=== PATIENT | male | born 1975 | race Caucasian/White ===

== ENCOUNTER 2019-08-01 07:23 | Inpatient (IN) | payer OTHER ==
[~2019-08-01] VITALS: Ht 188 cm; Wt 138.3 kg
[2019-08-01] MEDS ORDERED: PRED20 PO (08:08)
[2019-08-01] MEDS ORDERED: AMLO10 PO (08:08)
[2019-08-01] MEDS ORDERED: METF500 PO (08:08)
[2019-08-01] MEDS ORDERED: POTA10T PO (08:09)
[2019-08-01 08:25] LABS: BASOPHILS ABSOLUTE AUTO 0.03 K/mm3 (0.00-0.23); BASOPHILS PERCENT AUTO 0 % (0-2); EOSINOPHILS ABSOLUTE AUTO 0.08 K/mm3 (0.00-0.68); EOSINOPHILS PERCENT AUTO 1 % (0-6); Hematocrit 43.7 % (37.0-53.0); Hemoglobin 12.4 g/dL (13.5-17.5); IMMATURE GRAN ABSOLUTE AUTO 0.02 K/mm3 (0.00-0.10); IMMATURE GRAN PERCENT AUTO 0 % (0-1); LYMPHOCYTES ABSOLUTE AUTO 1.23 K/mm3 (0.84-5.20); LYMPHOCYTES PERCENT AUTO 16 % (21-46); MONOCYTES ABSOLUTE AUTO 0.57 K/mm3 (0.16-1.47); MONOCYTES PERCENT AUTO 7 % (4-13); Mean Corpuscular HGB 28.9 pg (26.0-34.0); Mean Corpuscular HGB Conc 28.4 g/dL (31.5-36.5); Mean Corpuscular Volume 102 fL (80-100); NEUTROPHILS ABSOLUTE AUTO 5.74 K/mm3 (1.96-9.15); NEUTROPHILS PERCENT AUTO 75 % (41-73); Platelet Count 261 K/mm3 (150-400); RDW Coefficient Variation 17.1 % (11.7-14.2); RDW Standard Deviation 64.7 fL (35.1-46.3); Red Blood Cell Count 4.29 M/mm3 (4.30-5.90); White Blood Cell Count 7.67 K/mm3 (4.00-11.30)
[2019-08-01] MEDS ORDERED: ALBU3IS INH (08:34)
[2019-08-01] MEDS ORDERED: ALBU90OI (08:35)
[2019-08-01 08:44] LABS: PO2 Arterial 53.8 mmHg (80-100)
[2019-08-01 08:45] LABS: pH Blood Arterial 7.28 (7.35-7.45)
[2019-08-01 09:32] LABS: Alanine Aminotransfer (ALT/SGP 45 U/L (12-78); Albumin, Blood 3.4 g/dL (3.4-5.0); Alk Phos 134 U/L (50-136); Anion Gap -2 mmol/L (6-16); Aspartate Aminotrans (AST/SGOT 22 U/L (12-37); Bilirubin, Total 0.4 mg/dL (0.1-1.0); Blood Urea Nitrogen 14 mg/dL (8-24); Bun/Creatinine Ratio 15.3 (12.0-20.0); CO2, Blood 36 mmol/L (21-32); Calcium, Blood 8.2 mg/dL (8.5-10.1); Chloride, Blood 107 mmol/L (98-108); Creatinine, Blood 0.92 mg/dL (0.60-1.20); Globulin, Blood 3.3 g/dL (2.2-4.0); Glomerular Filtration Rate >60 (60-); Glucose, Blood 109 mg/dL (70-99); Sodium, Blood 141 mmol/L (136-145); Total Protein, Blood 6.7 g/dL (6.4-8.2)
[2019-08-01 09:34] LABS: Troponin I 0.103 ng/mL (0.000-0.040)
--- NOTE | 2019-08-01 12:00 | NUR ---
ADMISSION TO PCU NOTE: ASSUMED CARE AT APPROXIMATELY 1030. REPORT GIVEN BY ER TO PRACHI. DIAGNOSIS LLE CELLULITIS & RESPIRATORY ACIDOSIS. PATIENT TRANSFERRED VIA GURNEY. FOUR PERSON SLIDE SHEET TRANSFER TO BED. PATIENT AO X4. DROWSY, BUT AROUSABLE. PULSE 97, RESPIRATIONS 15, BP 145/65 SPO2 97 ON BIPAP SETTINGS 18/10 40%. RIGHT HAND IV ACCIDENTALY PULLED BY PATIENT 10 MINUTES POST ADMISSION TO UNIT. 20G IN PLACE TO LEFT FOREARM, NO OBSERVABLE IV RELATED COMPLICATIONS, NEW WINDOW DRSG APPLIED. LLE REDNESS OUTLINED. ULCER W/SLOUGH OBERVED TO LLE LATERAL KNIGHT. CONT OF BLADDER USING URINAL. PATIENT R BKA ND OLDER STUMP C/D/I. PATIENT USES URINAL APPROPRIATELY.
--- NOTE | 2019-08-01 15:47 | NUR ---
PATIENT CONTINUES STABLE AT THIS TIME. VSS SEE EMR. TOLERATING BIPAP AT CURRENT SETTINGS. RT IN TO SEE PATIENT. USING URINAL APPROPRIATELY. IV ABX INFUSED PER EMAR . PICTURES TAKEN AND DOCUMENTED OF ULCER. CALL LIGHT WITHIN REACH. NO ACUTE CHANGES WILL CONTINUE TO MONITOR.
[2019-08-02 04:10] LABS: BASOPHILS ABSOLUTE AUTO 0.03 K/mm3 (0.00-0.23); BASOPHILS PERCENT AUTO 0 % (0-2); EOSINOPHILS ABSOLUTE AUTO 0.09 K/mm3 (0.00-0.68); EOSINOPHILS PERCENT AUTO 1 % (0-6); Hematocrit 44.1 % (37.0-53.0); Hemoglobin 12.7 g/dL (13.5-17.5); IMMATURE GRAN ABSOLUTE AUTO 0.02 K/mm3 (0.00-0.10); IMMATURE GRAN PERCENT AUTO 0 % (0-1); LYMPHOCYTES ABSOLUTE AUTO 1.03 K/mm3 (0.84-5.20); LYMPHOCYTES PERCENT AUTO 12 % (21-46); MONOCYTES PERCENT AUTO 6 % (4-13); Mean Corpuscular HGB 29.4 pg (26.0-34.0); Mean Corpuscular HGB Conc 28.8 g/dL (31.5-36.5); Mean Corpuscular Volume 102 fL (80-100); Mean Platelet Volume 9.7 fL (9.1-12.4); NEUTROPHILS ABSOLUTE AUTO 6.68 K/mm3 (1.96-9.15); NEUTROPHILS PERCENT AUTO 80 % (41-73); NRBC ABSOLUTE 0.02 K/mm3 (0.00-0.02); NRBC Auto 0.2 /100 WBC (0.0-0.2); Platelet Count 248 K/mm3 (150-400); RDW Coefficient Variation 16.8 % (11.7-14.2); RDW Standard Deviation 63.1 fL (35.1-46.3); Red Blood Cell Count 4.32 M/mm3 (4.30-5.90); White Blood Cell Count 8.35 K/mm3 (4.00-11.30)
[2019-08-02 04:28] LABS: Alanine Aminotransfer (ALT/SGP 40 U/L (12-78); Albumin, Blood 3.2 g/dL (3.4-5.0); Albumin/Globulin Ratio 0.9 (0.8-1.8); Alk Phos 114 U/L (50-136); Anion Gap 4 mmol/L (6-16); Aspartate Aminotrans (AST/SGOT 21 U/L (12-37); Bilirubin, Total 0.5 mg/dL (0.1-1.0); Blood Urea Nitrogen 10 mg/dL (8-24); Bun/Creatinine Ratio 11.5 (12.0-20.0); CO2, Blood 34 mmol/L (21-32); Calcium, Blood 8.1 mg/dL (8.5-10.1); Chloride, Blood 105 mmol/L (98-108); Creatinine, Blood 0.87 mg/dL (0.60-1.20); Globulin, Blood 3.4 g/dL (2.2-4.0); Glomerular Filtration Rate >60 (60-); Glucose, Blood 94 mg/dL (70-99); Potassium, Blood 4.2 mmol/L (3.5-5.5); Sodium, Blood 143 mmol/L (136-145); Total Protein, Blood 6.6 g/dL (6.4-8.2)
--- NOTE | 2019-08-02 05:19 | NUR ---
SHIFT SUMMARY: PATIENTS O2 SATURATION DROPS QUICKLY WHEN SLEEPING AND ONLY USING THE NC, PATIENT USED THE BIPAP THE MAJORITY OF THE NIGHT. AT APPROX 0130 PATIENT C/O 10/10 HEADACHE PAIN, BP HIGH. MD NOTIFIED, ORDERS RECIEVED, PAIN AND PRN HTN MEDICATION GIVEN PER MD ORDERS. PATIENT FELL ASLEEP SHORTY AFTER AND HAS NOT C/O PAIN THE REST OF THE SHIFT. PATIENTS SBP STILL APPROX 170'S, VERY HARD TO CONTROL THIS SHIFT, NO OTHER ISSUES NOTED. CALL LIGHT WITHIN REACH, BED LOW AND LOCKED, MONITORING CLOSELY.
[2019-08-02 10:09] LABS: Vancomycin, Trough 18.1 ug/mL (5.0-10.0)
[2019-08-02 15:36] LABS: PCO2 Arterial 95 mmHg (35-45); PO2 Arterial 138 mmHg (80-100); pH Blood Arterial 7.21 (7.35-7.45)
--- NOTE | 2019-08-02 16:04 | NUR ---
DECLINE IN PATIENT STATUS PATIENTS CONTINUOUS TO HAVE PERIODS OF HYPOXIA ON THE BIPAP WITH SATURATIONS RANGING LOW 76% SPO2 AND 60% WHEN PATIENT TAKES BIPAP OFF DUE TO ANXIETY OF SOB. PATIENT SAT AT 90 DEGREE ANGLE, ABG OBTAINED AND MD MIMS NOTIFIED. PATIENT CONTINUES TO BE DROWSY AND UNABLE TO STAY AWAKE ON BIPAP. VOLUMES INCREASED PER RT AND MD MIMS. PATIENT MADE ICU STATUS AND CONSULT FOR CONTRACT CONSULTANT PLACED AND NOTIFIED. THIS RN AT BEDSIDE AT DURING THIS PERIOD. MD MIMS AT BEDSIDE.
--- NOTE | 2019-08-02 16:52 | NUR ---
PT TRANSPORTED TO ICU. BEDSIDE REPORT GIVEN TO EILEEN BELLE.
[2019-08-02 18:12] LABS: Source, Urine Catheter
--- NOTE | 2019-08-02 18:12 | NUR ---
ASSUMED CARE/UPDATE/SHIFT SUMMARY PT COMES OVER TO ICU AT 1630 ON THE BIPAP, IN RESPIRATORY ACCIDOSIS/FAILURE. HE ELECTED TO BECOME INTUBATED, HE KNEW WHO HE WAS AND THE SITUATION. DR. DO TO THE ROOM SHORTLY AFTER AND WE BEGAN TO INTUBATE THE PATIENT. 1650 - 4MG VERSED AND 80MG PROPOFOL GIVEN (PROPOFOL PUSHED BY DR. DO) 1657 - 60MG OF PROPOFOL GIVEN BY DR. DO. 1658 - 20MG ETOMIDATE INTUBATION WAS PROVING DIFFICULT. IT WAS DECIDED TO PARALYZE, SO AT 1706 - 70MG OF ROCURONIUM 1708 - 4MG VERSED GIVEN, AND DR DO WAS SUCCESSFUL AT 1715. 8.0 ETT, 25 @ TEETH. PT STARTED ON A PROPOFOL GTTP 35MCG/KG/MIN, CURRENTLY NOW AT 45MCG/KIG/MIN. PRESSURES HAVE BEEN ADEQUATE THROUGHOUT. HIS INITIAL XRAY WAS TERRIBLE (SEEMS LIKELY HE ASPIRATED DURING INTUBATION). HE IS COARSE THROUGHOUT AND NOT MOVING MUCH AIR. SATS HAVE BEEN AN ISSUE SINCE HES BEEN INTUBATED MID 80'S ON AC/VC, PEEP IS UP TO 10, AC/PC 14, RATE OF 16, 100% FIO2. BUT CURRENTLY PT IS FINALLY SAT'ING 93-94% DOING SLIGHTLY BETTER. DR DO WILL ORDER ANOTHER XRAY SOON TO SEE IF THERE HAS BEEN IMPROVEMENT BEFORE MAKING ANY CHANGES. ONE THING THAT HAS BEEN HAPPENING HAS BEEN SOME TWITCHING/FASICULATING OR JERKY MOVMENTS. HE HAD GOOSEBUMPS WITH A TEMP OF 97.8, I THREW WARM BLANKETS ON HIM AND BROUGHT THIS TO DR. DO'S ATTENTION - WHICH HE SAID THIS CAN HAPPEN WHEN PARALYTICS WEAR OFF. GAYTAN AND OG TUBE INSERTED WITH NO DIFFICULTY. PT SEEMS TO HAVE A RASS OF -3, AND SEEMS TO BE TOLERATING THE VENTILATOR WELL CURRENTLY. BED LOW AND LOCKED. PCU NURSE THAT HAD THE PATIENT PRIOR TO THE TRANSFER TOLD ME SHE WOULD CALL FAMILY.
[2019-08-02 18:17] LABS: Appearance, Urine Hazy (Clear); Bilirubin, Urine Neg (Neg); Blood, Urine 1+ (Neg); Color, Urine Yellow (P-Yellow); Glucose Qualitative, Urine Neg (Neg); Ketones, Urine Neg (Neg); Leukocyte Esterase, Urine 1+ (Neg); Nitrite, Urine Neg (Neg); Protein, Urine 2+ (Neg); Specific Gravity, Urine 1.025 (1.003-1.022); Urobilinogen, Urine NORM (Normal)
[2019-08-02 18:29] LABS: Bacteria Few /hpf; Squamous Epithelial Cells Few /hpf (Few)
[2019-08-02 18:30] LABS: Amorphous Light (0-Heavy); Mucus Light (0-Heavy)
--- NOTE | 2019-08-02 19:43 | NUR ---
ASSESSMENT/ASSUMED CARE PT INTUBATED AND ON [facility] VENT. SEDATED WITH PROPOFOL. PT MOVES HEAD BACK AND FORTH WITH ORAL CARE AND TOUCH STIMULI. NOT FOLLOWING INSTRUCTIONS. BILAT WRIST RESTRAINTS ON. LUNGS CLEAR BUT DECREASED THROUGHOUT. VENT SETTINGS AC 16 PC 14 PEEP 10 FIO2 80%. SUCTIONING FROTHY WHITE SECRECTIONS VIA ET TUBE. LOTS OF ORAL SECRECTIONS. HEART RATE REGULAR BUT DISTANT. BP STABLE. BT+ OG TO LIS DRAINING DIGESTED FOOD. ABD OBESE, ROUND AND FIRM. GAYTAN CATH PATENT DRAINING YELLOW URINE. CXR DONE AND REVIEWED BY DR JULIAN. IV 20 G TO RIGHT UPPER ARM SALINE LOCKED. SITE CLEAR. IV 20G TO LEFT FOREARM WITH PROPOFOL AT 45 MCQ/KG/MIN. RIGHT BKA NOTED. LEFT KNIGHT WITH DRSG CD&I. NO REDNESS TO LEFT KNIGHT NOTED. LASIX TO BE GIVEN.
--- NOTE | 2019-08-02 20:54 | NUR ---
O2 INCREASED TO 90% DUE TO SPO2 AT 89-90%. OG TUBE CLAMPED AFTER GIVING NORVASC AND PEPSID.
--- NOTE | 2019-08-03 03:00 | NUR ---
BED BATH DONE, SPO2 DOWN TO 77% WHEN TURNED FOR LINEN CHANGE. FIO2 INCREASED TO 100%. SUCTIONED LARGE AMT FROTHY WHITE SECRECTIONS VIA ET TUBE. RT NOTIFIED PT UP TO 88-90%. INCREASD PEEP TO 12.
--- NOTE | 2019-08-03 03:22 | NUR ---
PT CONT TO HAVE SPO2 AT 88-89% WITH VENT SETTINGS AC 16 PC 14 PEEP 12 FIO2 100%. RT CAME AND CHANGED VENT SETTINGS TO AC 24 PC 18 PEEP 10 FIO2 100%. SPO2 UP TO 91% AND HEART RATE CAME DOWN TO 98. PT RESTING QUIETLY. TV IN THE 600'S.
[2019-08-03 03:36] LABS: BASOPHILS ABSOLUTE AUTO 0.01 K/mm3 (0.00-0.23); BASOPHILS PERCENT AUTO 0 % (0-2); EOSINOPHILS PERCENT AUTO 0 % (0-6); Hematocrit 41.7 % (37.0-53.0); Hemoglobin 12.5 g/dL (13.5-17.5); IMMATURE GRAN ABSOLUTE AUTO 0.03 K/mm3 (0.00-0.10); IMMATURE GRAN PERCENT AUTO 0 % (0-1); LYMPHOCYTES ABSOLUTE AUTO 0.43 K/mm3 (0.84-5.20); LYMPHOCYTES PERCENT AUTO 5 % (21-46); MONOCYTES ABSOLUTE AUTO 0.25 K/mm3 (0.16-1.47); MONOCYTES PERCENT AUTO 3 % (4-13); Mean Corpuscular HGB 29.3 pg (26.0-34.0); Mean Platelet Volume 9.4 fL (9.1-12.4); NEUTROPHILS ABSOLUTE AUTO 8.07 K/mm3 (1.96-9.15); NEUTROPHILS PERCENT AUTO 92 % (41-73); Platelet Count 267 K/mm3 (150-400); RDW Coefficient Variation 16.4 % (11.7-14.2); Red Blood Cell Count 4.27 M/mm3 (4.30-5.90); White Blood Cell Count 8.79 K/mm3 (4.00-11.30)
[2019-08-03 03:37] LABS: Mean Corpuscular Volume 98 fL (80-100)
[2019-08-03 03:54] LABS: Anion Gap 5 mmol/L (6-16); Blood Urea Nitrogen 15 mg/dL (8-24); Bun/Creatinine Ratio 13.9 (12.0-20.0); CO2, Blood 33 mmol/L (21-32); Calcium, Blood 8.4 mg/dL (8.5-10.1); Chloride, Blood 102 mmol/L (98-108); Creatinine, Blood 1.08 mg/dL (0.60-1.20); Glomerular Filtration Rate >60 (60-); Glucose, Blood 128 mg/dL (70-99); Potassium, Blood 4.4 mmol/L (3.5-5.5); Sodium, Blood 140 mmol/L (136-145)
--- NOTE | 2019-08-03 06:12 | NUR ---
SHIFT SUMMARY PT CONT INTUBATED AND ON [facility] VENT. VENT SETTINGS CHANGED DURING THE NIGHT DUE TO DECREASED SPO2. CURRENTLY VENT SETTINGS AC 24 PC 18 TV 10 FIO2 100%. AFTER SETTINGS CHANGED HEART RATE CAME DOWN TO THE 90'2 AND SPO2 BACK UP TO 91-92%. LUNGS CLEAR BUT DECREASED. HEART RATE REGULAR. BP STABLE. OG WITH 400 ML OUT DURING THE NIGHT. SUCTIONED VIA ET TUBE FOR FROTHY WHITE SECRECTIONS. LARGE AMT ORAL SECRECTIONS. GAYTAN DRAINING CLOUDY YELLOW URINE. PT SEDATED WITH PROPOFOL AT 45 MCQ/KG/MIN. MED ONCE DURING THE NIGHT WITH FENTANYL 50 MCQ IV FOR BATH. BILAT SOFT WRIST RESTRAINTS ON. PT NOT FOLLOWING INSTRUCTIONS. TURING HEAD SIDE TO SIDE WITH MOUTH CARE. NOT OPENING EYES. REPORT TO ON COMING NURSE
--- NOTE | 2019-08-03 09:40 | NUR ---
BEDSIDE REPORT TAKEN AT 0700. PT SEDATED ON 45MCG PROPOFOL FOR [facility] VENT. AC 24, PC 18, FIO2 100%, PEEP 10. SATS BETWEEN 88-92%. HEART RATE/BP STABLE. PT GRIMACES AND THRASHES HEAD W ORAL CARE. ATIVAN GIVEN PT DIFF INTUABTION AND THRASHING HEAD. PUPILS PINPOINT/REACTIVE/SLUGGISH. LUNGS CLEAR T/O, TUBULAR TO LLL. SCANT CLEAR ETT SECRETIONS. DR NO IN AT 0900. PEEP INCREASED TO 12 AT 0930 FOR SATS 87-89%.
--- NOTE | 2019-08-03 10:05 | NUR ---
DR NO AT BEDSIDE. STAT ABG AND LASIX 40MG IV ORDERED. ECHO TO BE COMPLETED, POSSIBLE CTA STUDY TODAY
[2019-08-03 10:18] LABS: PCO2 Arterial 41.1 mmHg (35-45); PO2 Arterial 56.1 mmHg (80-100); pH Blood Arterial 7.56 (7.35-7.45)
--- NOTE | 2019-08-03 11:29 | NUR ---
Echocardiogram completed.
--- NOTE | 2019-08-03 12:16 | NUR ---
PT TO AND BACK FROM CTA. PT TOLERATED PROCEDURE WELL. FENT AND ATIVAN GIVEN PRIOR TO EXAMINE TO ENSURE ADEQUATE SEDATION. TF TO BE STARTED TODAY. STATS INITIALLY INCREASED TO 92% POST LASIX; 500 CC U/O POST LASIX. NEW ORDERS TO START VANCO PER PHARMACY PER DR NO.
--- NOTE | 2019-08-03 13:54 | NUR ---
VITAL HIGH PROTEIN STARTED ON PT AT 25CC/HR W GOAL RATE OF 45CC/HR.
--- NOTE | 2019-08-03 19:39 | NUR ---
PT SATURATED BETWEEN 88-92% FOR THE MAJORITY OF THE SHIFT. VENT SETTINGS AT 1900: AC 20, VC 550, FIO2 100%, PEEP 14. PT'S FATHER AND MOTHER CAME BY FOR A SHORT VISIT; UPDATE GIVEN. PROPOFOL REMIANED AT 45MCG FOR THE MAJORITY OF THE SHIFT WELL. PT TURNED AT 1900 USING THE LIFT AND ONCOMING RN. TURN WAS GENTLE AND, ETT MONITORED DURING TURN. PT DID HAVE SOME STACKING DURING TURN. WHEN TURN COMPLETE SATS DECREASED TO 82% LARGE AMT OF BRIGHT RED FROTHY BLOOS SX'S FROM ETT. AIR LEAK NOTED TO BALLOON CUFF; PT MAINTAINING TV OF 500-550. RT CALLED STAT, DR NO CALLED WELL. SEDATION INCREASED TO 65MCG. STAT CHEST XRAY COMPLETED; DR NO WAS ABLE TO SEE RESULTS. VENT SETTING CHANGES PER DR NO: DECREASE AC TO 18, INCREASE PEEP TO 16. MAY TITRATE PEEP BACK DOWN TO 14 IF SATS RECOVER THROUGH THE NIGHT. HOLD CPT UNTIL TOMORROW. 2CC AIR PLACED BACK TO CUFF PER RT. REPORT GIVEN TO KERRI BELLE.
--- NOTE | 2019-08-03 22:51 | NUR ---
ASSUMED CARE OF PT, REPORT RCV'D FROM BARBRA SHERMAN. PT VENTED AND SEDATED. VENT SETTINGS INCREASED AT BEGINNING OF SHIFT D/T PT SUDDEN DECREASE IN SATURATIONS FOLLOWING REPOSITIONING. CURRENT VENT SETTINGS AC 18/550/16/100%, CURRENT SATS 88-91%. PROPOFOL @45 MCG/KG/MIN FOR SEDATION. LUNG SOUNDS CLEAR WITH DIM BASES. BLOODY SPUTUM SUCTIONED FROM ETT. STAT CHEST XRAY ORDERED, DR. NO NOTIFIED AND UPDATED. TF:VHP @ 45 ML/HR, GOAL RATE. 80 ML RESIDUALS REINSTILLED. SEE FULL SHIFT ASSESSMENT.
[2019-08-04 02:07] LABS: BASOPHILS ABSOLUTE AUTO 0.03 K/mm3 (0.00-0.23); BASOPHILS PERCENT AUTO 0 % (0-2); EOSINOPHILS ABSOLUTE AUTO 0.07 K/mm3 (0.00-0.68); EOSINOPHILS PERCENT AUTO 1 % (0-6); Hematocrit 40.6 % (37.0-53.0); Hemoglobin 12.4 g/dL (13.5-17.5); IMMATURE GRAN ABSOLUTE AUTO 0.03 K/mm3 (0.00-0.10); IMMATURE GRAN PERCENT AUTO 0 % (0-1); LYMPHOCYTES ABSOLUTE AUTO 1.22 K/mm3 (0.84-5.20); LYMPHOCYTES PERCENT AUTO 14 % (21-46); MONOCYTES ABSOLUTE AUTO 0.47 K/mm3 (0.16-1.47); MONOCYTES PERCENT AUTO 6 % (4-13); Mean Corpuscular HGB 29.2 pg (26.0-34.0); Mean Corpuscular HGB Conc 30.5 g/dL (31.5-36.5); Mean Corpuscular Volume 96 fL (80-100); Mean Platelet Volume 9.7 fL (9.1-12.4); NEUTROPHILS ABSOLUTE AUTO 6.72 K/mm3 (1.96-9.15); NEUTROPHILS PERCENT AUTO 79 % (41-73); Platelet Count 283 K/mm3 (150-400); RDW Coefficient Variation 16.9 % (11.7-14.2); RDW Standard Deviation 59.3 fL (35.1-46.3); Red Blood Cell Count 4.25 M/mm3 (4.30-5.90); White Blood Cell Count 8.54 K/mm3 (4.00-11.30)
[2019-08-04 02:24] LABS: Anion Gap 3 mmol/L (6-16); Blood Urea Nitrogen 25 mg/dL (8-24); Bun/Creatinine Ratio 18.5 (12.0-20.0); CO2, Blood 36 mmol/L (21-32); Calcium, Blood 8.2 mg/dL (8.5-10.1); Chloride, Blood 103 mmol/L (98-108); Creatinine, Blood 1.35 mg/dL (0.60-1.20); Glomerular Filtration Rate >60 (60-); Glucose, Blood 98 mg/dL (70-99); Magnesium, Blood 2.1 mg/dL (1.6-2.4); Phosphorus, Blood 3.8 mg/dL (2.5-4.9); Potassium, Blood 3.3 mmol/L (3.5-5.5); Sodium, Blood 142 mmol/L (136-145)
[2019-08-04 05:28] LABS: PCO2 Arterial 49.7 mmHg (35-45); PO2 Arterial 81.3 mmHg (80-100); pH Blood Arterial 7.48 (7.35-7.45)
--- NOTE | 2019-08-04 06:24 | NUR ---
SHIFT SUMMARY PT REMAINS INTUBATED WITH UNCHANGED VENT SETTINGS AC 18/550/16/100%, SATS>90% T/O SHIFT. PROPOFOL INCREASED TO 65 MCG/KG/MIN TO ADEQUATELY SEDATE PT AND ALLOW FOR REPOSITIONING AND ORAL CARE. PT DOES NOT TOLERATE STIMULI AND IMMEDIATELY THRASHES HEAD BACK AND FORTH. 0300 VANCO HELD PER PHARMACY D/T CRITICALLY HIGH VANCO TROUGH. WILL REPORT TO DAYSHIFT NURSE
--- NOTE | 2019-08-04 07:00 | NUR ---
BEDSIDE REPORT TAKEN. PT SEDATED ON 65MCG PROPOFOL. PT GRIMACES AND MOVES HEAD W NNOXIOUS STIMULI. WILL GIVEN PRN ATIVAN AND FENT IN ATTEMPT TO LOWER PROPOFOL AND CONT ADEQUATE SEDATION. SATS 90% ON 90% FIO2, PEEP AT 16, RESP 18; PT TOLERATING VENT WELL.
--- NOTE | 2019-08-04 10:18 | NUR ---
DR NO IN TO SEE PT. k+ REPLACED, LASIX GIVEN. CHEST CPT WITH VEST COMPLETED. PT TOLERATED CPT WELL, SATS INCREASED FROM 90% TO 94%. PROPOFOL DECREASED FROM 65MCG TO 50MCG AFTER ATIVAN AND FENT GIVEN ADJUNCT TO SEDATION. POWERGLIDE PLACED TO MARTA W/O DIFFICULTY. PEEP DECREASED FROM [address] FIO2 AT 90%, VSS, RESP RATE RIGHT AROUND 18. AFEBRILE. TUBE FEEDING AT GOAL;TOLERATING WELL, RESIDUAL 10CC.
--- NOTE | 2019-08-04 12:23 | NUR ---
PT TURNED TO LEFT SIDE W/O ANY INCIDENT. SATS DID DECREASE TO 89%, FIO2 AT 85%, PEEP AT 14. DR NO AWARE. SCANT TO NO SECRETIONS SX'D FROM ETT. PROPOFOL AT 50MCG, FENT 50MCG GIVEN JUST PRIOR TO TURN. 1200CC EMPTIED FROM CATHETER. NO OTHER CHANGES
[2019-08-04 14:56] LABS: Vancomycin, Random 15.6 ug/mL
--- NOTE | 2019-08-04 15:27 | NUR ---
UPDATE GIVEN TO DR NO; ROCEPHIN TO BE RESTARTED.PT'S FATHER AT BEDSIDE; UPDATE GIVEN. PER PARENTS' PT IS USUALLY HOMELESS AND LIVES "IN THE [place]". THIS INFORMATION SHARED W DR NO
--- NOTE | 2019-08-04 20:27 | NUR ---
PT MOVED TO BARIATRIC BED AT 1623 WITH THE ASSISSTANCE OF TWO RT'S AND THREE RN'S. PT PLACED IN LIFT WHILE OLD BED REMOVED AND NEW BARIATRIC BED MOVED UNDER PT. PT UP IN LIFT APPROX 5MIN D/T TECHNICAL ISSUES WITH NEW BED. RT BAGGED PT IN LIFT FOR APPROX 2MIN. UPON RETURNING PT TO BED SATS DECREASED TO LOW 80'S. DR NO IN UNIT AND QUICKLY AT BEDSIDE. PT'S SATS DIDNT IMPROVE UNTIL VENT SETTINGS CHANGED TO BILEVEL: 25PEEP/16PEEP, PS 12, RATE 18, FIO2 100%. DURING THIS TIME PT BECAME TEMPORARILY HYPOTENSIVE. LEVOPHED ORDERED AND STARTED PERIPHERALLY AT 1724 AT 2MCG UNTIL 1755. PROPOFOL PLACED ON STANDBY FOR SHORT PERIOD AND RESTARTED AT 1724. PICC LINE STARTED URGENTLY OVER EXISTING POWERGLIDE THAT HAD BEEN PLACED EARLIER THIS AM. PICC LINE PLACED W/O ANY DIFFICULTY. SATS INCREASED TO 96-97% ON NEW VENT SETTINGS. BEDSIDE REPORT GIVEN TO SENDY BELLE.
--- NOTE | 2019-08-04 21:30 | NUR ---
EYE DRAINAGE YELLOW DRAINAGE NOTED FROM BOTH EYES, L > R. DR. NO NOTIFIED - NO NEW ORDERS AT THIS TIME.
--- NOTE | 2019-08-04 22:28 | NUR ---
ASSUMED CARE OF PT FROM WHIT BELLE. BEDSIDE REPORT GIVEN, I-TRACE PERFORMED. RECTAL GAYTAN PROBE EMPLACED WHILE DOING BATH AND TURN. DR. NO ENTERED IMMEDIATELY AFTER, NOTED PT SATS DID NOT TOLERATE TURNS, AND STATED TURNS WERE NOT NECESSARY. WILL MINIMIZE MOVEMENT FOR PT TO SMALL WEDGE TURNS AND STOOL CHECKS.
[2019-08-05 04:26] LABS: Base Excess Venous 12.9 mmol/L; Bicarbonate Venous 34.3 mmol/L (24.0-30.0); PCO2 Venous 54.4 mmHg (38-42); pH Blood Venous 7.44 (7.34-7.37)
[2019-08-05 04:30] LABS: BASOPHILS ABSOLUTE AUTO 0.03 K/mm3 (0.00-0.23); BASOPHILS PERCENT AUTO 0 % (0-2); EOSINOPHILS ABSOLUTE AUTO 0.18 K/mm3 (0.00-0.68); EOSINOPHILS PERCENT AUTO 3 % (0-6); IMMATURE GRAN ABSOLUTE AUTO 0.03 K/mm3 (0.00-0.10); IMMATURE GRAN PERCENT AUTO 0 % (0-1); LYMPHOCYTES PERCENT AUTO 13 % (21-46); MONOCYTES ABSOLUTE AUTO 0.51 K/mm3 (0.16-1.47); MONOCYTES PERCENT AUTO 7 % (4-13); Mean Corpuscular HGB 28.6 pg (26.0-34.0); Mean Corpuscular HGB Conc 30.2 g/dL (31.5-36.5); Mean Corpuscular Volume 95 fL (80-100); Mean Platelet Volume 9.6 fL (9.1-12.4); NEUTROPHILS ABSOLUTE AUTO 5.34 K/mm3 (1.96-9.15); NEUTROPHILS PERCENT AUTO 76 % (41-73); Platelet Count 243 K/mm3 (150-400); RDW Coefficient Variation 16.6 % (11.7-14.2); RDW Standard Deviation 57.7 fL (35.1-46.3); Red Blood Cell Count 4.54 M/mm3 (4.30-5.90); White Blood Cell Count 6.99 K/mm3 (4.00-11.30)
[2019-08-05 04:50] LABS: Anion Gap 3 mmol/L (6-16); Blood Urea Nitrogen 26 mg/dL (8-24); Bun/Creatinine Ratio 25.5 (12.0-20.0); CO2, Blood 36 mmol/L (21-32); Calcium, Blood 8.1 mg/dL (8.5-10.1); Chloride, Blood 104 mmol/L (98-108); Creatinine, Blood 1.02 mg/dL (0.60-1.20); Glomerular Filtration Rate >60 (60-); Glucose, Blood 97 mg/dL (70-99); Magnesium, Blood 2.3 mg/dL (1.6-2.4); Phosphorus, Blood 4.6 mg/dL (2.5-4.9); Potassium, Blood 3.8 mmol/L (3.5-5.5); Sodium, Blood 143 mmol/L (136-145); Vancomycin, Random 17.7 ug/mL
--- NOTE | 2019-08-05 05:54 | NUR ---
PT HAD BOUTS OF RESTLESSNESS, COVERED WITH ATIVAN AND FENTANYL. PT ALSO CHEWING ET TUBE WHEN ORAL CARE PERFORMED. EYES HAVE CONTINUED TO OOZE GUMMY EXUDATE, WITH REDDENING EYES. PT VERY STRONG, DIFFICULT TO HOLD ARM WHILE DRAWNING BLOOD. HOWEVER, PT DOES NOT MOVE TO COMMAND. PT CONTINUING ON BILEVEL VENT, SAME PREVIOUS SETTINGS.
--- NOTE | 2019-08-05 09:13 | NUR ---
ASSUMED CARE OF PT AT 0700. REPORT FROM KAMI BELLE. PT INTUBATED AND SEDATED. VENT SETTINGS, BILEVEL, PEEP 25/16, PS 12, RATE 18, 90%. PROPOFOL INFUSING AT 50 MCG/KG/HR VIA PICC TO RUE. PT RESPONSES TO PAINFUL STIMULI. DOES NOT FOLLOW COMMANDS. BILATERAL WRIST RESTRAINTS IN PLACE TO SECURE LINES AND TUBES AND PREVENT SELF EXTUBATION. LUNGS DIMINISHED IN RIGHT SIDE. PUPILS 2 MM, SLUGGISH, SCLERA RED, YELLOW CRUSTING TO EYE LIDS. PT c COUGH AND GAG REFLEX. ABD FIRM, DISTENDED. TUBE FEEDINGS INFUSING AT 45 ML/HR c q4 30ML FLUSHES, 40ML RESIDUAL THIS AM. DISCOLORATION TO LLE, BOUNDARIES MARKED. 2+ EDEMA. PPP. RIGHT AKA. GAYTAN IN PLACE, PATENT AND DRAINING TO GRAVITY. CLEAR YELLOW URINE. RT AT BEDSIDE THIS AM FOR CPT. VSS. WILL CONTINUE TO MONITOR.
--- NOTE | 2019-08-05 10:48 | NUR ---
SEDATION VACATION. PROPOFOL PLACED ON STANDBY FOR 12 MINUTES. PT ATTEMPTED TO OPEN EYES ON COMMAND AND MOVED FINGERS WHEN ASKED TO SQUEEZE HAND. PT BEGAN CLAMPING MOUTH ON ETT, COUGHING. REASSURED PT. PROPOFOL RESTARTED. VENT SETTINGS AT THIS TIME, BILEVEL 80%.
--- NOTE | 2019-08-05 11:30 | NUR ---
DR NO AT BEDSIDE. FIO2 DECREASED TO 70%. WILL CONTINUE TO MONITOR SEDATION AND RESP STATUS. CLARIFIED NEED TO CONTINUE TURNS q2, DR NO STATED THAT THESE TURNS NEED TO BE DONE BUT c CAREFUL MONITORING.
--- NOTE | 2019-08-05 17:26 | NUR ---
SHIFT SUMMARY PT REMAINS INTUBATED AND SEDATED. VENT SETTINGS BILEVEL 23/14, PS 12, 80%. LUNGS IMPROVED ON RIGHT SIDE, DIMINISHED IN BASES. PROPOFOL INFUSING AT 45 MCG/KG/MIN. TUBE FEEDINGS INFUSING s DIFFICULTY, MINIMAL RESIDUALS. GAYTAN PATENT AND DRAINING TO GRAVITY. 1400ML OF TEA COLORED URINE OUT THIS SHIFT. RT COMPLETED CPT SEVERAL TIMES TODAY. VSS. REPORT TO ONCOMING NURSE.
--- NOTE | 2019-08-05 19:30 | NUR ---
ASSESSMENT/ASSUMED CARE PT INTUBATED AND ON [facility] VENT. VENT SETTINGS BILEVEL RATE 19 HIGH PEEP 23 LOW PEEP 14 PS 12 FIO2 80%. LUNGS CLEAR BUT DECREASED THROUGHOUT. SUCTIONED SMALL AMT THIN WHITE SECRECTIONS VIA ET TUBE. ASSISTED RT WITH CHANGING OUT BITE BLOCK AND RETAPING TUBE. INCREASED FIO2 TO 100% DUE TO SPO2 DOWN TO 88%. HEART RATE REGULAR, BP STABLE. BT+ ABD FIRM, ROUND, AND OBESE. PICC LINE TO RIGHT UPPER ARM WITH PROPOFOL AT 45 MCQ/KG/HR AND NS @ 10 ML/HR. IV 20G TO LEFT AC SALINE LOCKED, FLUSHED WITHOUT DIFFICULTY. GAYTAN CATH PATNET DRAINING YELLOW URINE. OG WITH TUBE FEED VITAL HP AT GOAL RATE OF 45 ML/HR AND H20 AT 30 ML Q4HR. RESIDUAL ZERO. DRSG TO LEFT KNIGHT CD&I.
--- NOTE | 2019-08-05 22:19 | NUR ---
DECREASED SPO2 BEDBATH GIVEN AND PT REPOSITIONED. SPO2 DECREASED TO 80'S. RT CHANGED VENT SETTINGS TO BILEVEL RATE 18 HIGH PEEP 25 LOW PEEP 16 PS 12 FIO2 100%. LARGE AMT ORAL SECRECTIONS SUCTIONED. SMALL AMT VIA ET TUBE. DR NO NOTIFIED REGARDING DECREASED SPO2. DR NO STATED,"PT TAKES A LONG TIME TO RECOVER, JUST MONITOR FOR NOW". NO ORDERS AT THIS TIME CONT TO MONITOR.
[2019-08-06 04:00] LABS: BASOPHILS ABSOLUTE AUTO 0.03 K/mm3 (0.00-0.23); BASOPHILS PERCENT AUTO 0 % (0-2); EOSINOPHILS ABSOLUTE AUTO 0.25 K/mm3 (0.00-0.68); EOSINOPHILS PERCENT AUTO 3 % (0-6); Hematocrit 38.8 % (37.0-53.0); Hemoglobin 12.1 g/dL (13.5-17.5); IMMATURE GRAN ABSOLUTE AUTO 0.02 K/mm3 (0.00-0.10); IMMATURE GRAN PERCENT AUTO 0 % (0-1); LYMPHOCYTES ABSOLUTE AUTO 0.64 K/mm3 (0.84-5.20); LYMPHOCYTES PERCENT AUTO 8 % (21-46); MONOCYTES ABSOLUTE AUTO 0.41 K/mm3 (0.16-1.47); MONOCYTES PERCENT AUTO 5 % (4-13); Mean Corpuscular HGB 29.3 pg (26.0-34.0); Mean Corpuscular HGB Conc 31.2 g/dL (31.5-36.5); Mean Corpuscular Volume 94 fL (80-100); Mean Platelet Volume 9.8 fL (9.1-12.4); NEUTROPHILS ABSOLUTE AUTO 6.65 K/mm3 (1.96-9.15); NEUTROPHILS PERCENT AUTO 83 % (41-73); Platelet Count 228 K/mm3 (150-400); RDW Coefficient Variation 16.5 % (11.7-14.2); RDW Standard Deviation 57.1 fL (35.1-46.3); Red Blood Cell Count 4.13 M/mm3 (4.30-5.90)
[2019-08-06 04:20] LABS: Anion Gap 3 mmol/L (6-16); Blood Urea Nitrogen 23 mg/dL (8-24); Bun/Creatinine Ratio 25.3 (12.0-20.0); CO2, Blood 34 mmol/L (21-32); Chloride, Blood 105 mmol/L (98-108); Creatinine, Blood 0.91 mg/dL (0.60-1.20); Glomerular Filtration Rate >60 (60-); Glucose, Blood 96 mg/dL (70-99); Magnesium, Blood 2.1 mg/dL (1.6-2.4); Phosphorus, Blood 3.8 mg/dL (2.5-4.9); Potassium, Blood 3.8 mmol/L (3.5-5.5); Sodium, Blood 142 mmol/L (136-145)
[2019-08-06 05:32] LABS: PCO2 Arterial 47.8 mmHg (35-45); PO2 Arterial 76.1 mmHg (80-100); pH Blood Arterial 7.45 (7.35-7.45)
--- NOTE | 2019-08-06 05:50 | NUR ---
SHIFT SUMMARY PT CONT INTUBATED AND ON [facility] VENT. VENT SETTINGS CHANGED DURING THE NIGHT DUE TO SPO2 DROPPING WITH TURNING. CURRENT VENT SETTINGS BILEVEL RATE 18 HIGH PEEP 26 LOW PEEP 16 PS 12 FIO2 100%. LUNGS CLEAR TO UPPER LOBES BUT DECREASED THROUGHOUT. PT MED WITH FENTANYL 50MCQ PRN FOR SEDATION ADJUNCT. PT NOT FOLLOWING INSRUCTIONS. BITING AT THE ET TUBE AND PULLING AGAINST RESTRAINTS. NOT OPENING EYES. HEART RATE REGULAR, BP STABLE. PICC LINE TO RIGHT UPPER ARM WITH PROPOFOL AT 45 MCQ/KG/MIN AND NS AT 10 ML/HR. OG WITH TUBE FEED AT GOAL, MIN RESIDUAL DURING THE NIGHT. NO BM. TURNED Q2HRS. BILAT SOFT WRIST RESTRAINTS ON. REPORT TO ON COMING NURSE.
[2019-08-06 09:26] LABS: Vancomycin, Random 15.2 ug/mL
--- NOTE | 2019-08-06 10:25 | NUR ---
ASSUMED CARE OF PT AT 0700. REPORT FROM KAVYA BELLE. PT INTUBATED AND SEDATED. VENT SETTINGS BILEVEL 25/16, P2 12, 100%. PROPOFOL INFUSING AT 45 MCG/KG/HR. PT RESPONSES TO PAINFUL STIMULI. PUPILS 2MM, EQUAL. EYES RED, SWOLLEN, YELLOW CRUSTING. LUNGS COARSE IN UPPER LOBES, DECREASED IN BASES. SCANT SECRETIONS FROM ETT. ABD OBESE, SOFT, NON TENDER, BT HYPOACTIVE. TUBE FEEDING INFUSING AT 45 ML/HR c q4 HR 30 ML FLUSH. 30 ML RESIDUAL THIS AM. GAYTAN PATENT AND DRAINING TEA COLORED URINE TO GRAVITY. YELLOW DISCHARGE FROM URETHRA. DISCOLORATION TO LLE. BOUNDARIES MARKED. PPP. NO WARMTH NOTED. 2+ EDEMA TO LLE. DEPENDENT EDEMA TO HANDS AND SCROTUM. ELEVATED HANDS ON PILLOWS. BILATERAL WRIST RESTRAINTS IN PLACE TO PREVENT SELF EXTUBATION. WILL CONTINUE TO MONITOR.
--- NOTE | 2019-08-06 18:02 | NUR ---
SHIFT SUMMARY PT REMAINS INTUBATED AND SEDATED, PROPOFOL INFUSING AT 45 MCG/KG/MIN, VENT SETTINGS BILEVEL 25/16, P2 12, FIO2 100%, UNCHANGED ENTIRE SHIFT. O2 SATS LOW 90'S. ATTEMPTED TO PLACE PT IN SITTING POSITION IN [facility] TO INCREASE O2 SATS, O2 SATS DECREASED TO 85-88%, LEFT PT IN THIS POSITION FOR APPROX 1 HOUR, NO INCREASE IN O2 SATS, PUT HOB AT 30 DEGREES FOR REST OF SHIFT. PT GRIMICES c ORAL CARE, MEDICATED c FENTANYL PRN PRIOR TO CARE AND TURNS. NO DESATURATIONS NOTED THIS SHIFT c CARE OTHER THAN WHEN IN SITTING POSITION. LUNGS REMAIN DIMINISHED IN BASES. RT COMPLETED CPT SEVERAL TIMES THIS SHIFT. TUBE FEEDINGS CONTINUE AT GOAL OF 45ML/HR c q4 30 ML FLUSHES, MINIMAL RESIDUALS. GAYTAN PATENT AND DRAINING TO GRAVITY. CLEAR TEA COLOR URINE OUT. RECTAL TEMP PROBE IN PLACE. TMAX 101.1. DR NO AWARE OF TEMP AND URINE COLOR. AMLODOPINE HELD THIS AM D/T BP. VSS. REPORT TO ONCOMING NURSE. BROTHER, MARY, VISITED PT TODAY. STATES THAT SON, DELORIS, HAS POA. DELORIS CALLED FOR UPDATED TODAY, ALSO STATED THAT HE HAD POA BUT NO PAPERWORK. REPORTS RECENT ADMISSION TO [facility] WHERE HE WAS INTUBATED AND LEFT AMA AFTER EXTUBATION.
--- NOTE | 2019-08-06 18:20 | NUR ---
THIS STUDENT NURSE HAS PERMISSION TO ACCESS PATIENT INFORMATION.
--- NOTE | 2019-08-06 20:00 | NUR ---
ASSESSMENT/ASSUMED CARE PT CONT INTUBATED AND ON [facility] VENT. SEDATED WITH PROPOFOL. CURRENT VENT SETTINGS BILEVEL RATE 18 HIGH PEEP 25 LOW PEEP 16 PS 12 FIO2 100%. LUNGS CLEAR IN UPPER LOBES BUT DECREASED THROUGHOUT. SUCTIONED SMALL AMT YELLOW FLUID FROM ET TUBE. HEART RATE REGULAR. BP STABLE. EDEMA TO HANDS ELEVATED ON PILLOWS. BT+ ABD FIRM, ROUND AND OBESE. OG WITH TUBE FEED VITAL HP AT GOAL RATE OF 45 ML/HR WITH H2O 30ML Q4HR. RESIDUAL 15 ML REFED. GAYTAN CATH PATENT WITH DARK YELLOW GREEN URINE. PICC LINE TO RIGHT UPPER ARM WITH PROPOFOL AT 50 MCQ/KG/HR AND NS AT 10 ML/HR. SITE CLEAR. IV 20G TO LEFT AC SALINE LOCKED, SITE CLEAR.
--- NOTE | 2019-08-06 21:21 | NUR ---
PAIN PT RESTLESS, PULLING AGAINST RESTRINTS. MED WITH FENTANYL
--- NOTE | 2019-08-06 22:06 | NUR ---
CALL TO MD CALL TO DR NO REGARDING TEMP 101.3 AND HYPOTENSION. BLOOD CULTURES ORDERED, AND NS 500ML BOLUS. PROPOFOL DECREASED TO 45 MCQ/KG/HR DUE TO BP
--- NOTE | 2019-08-06 23:24 | NUR ---
TEMP TEMP UP TO 102.0. BLANKETS REMOVED, COOL BATH GIVEN, ICE PACKS TO BACK OF NECK, GROIN AND UNDER ARMS. FAN ON PT WITH COOL CLOTH TO FOREHEAD. CALL OUT TO DR NO
[2019-08-07 03:30] LABS: Base Excess Venous 7.2 mmol/L; Bicarbonate Venous 29.3 mmol/L (24.0-30.0); PCO2 Venous 54.8 mmHg (38-42); PO2 Venous 44.9 mmHg (38-42); pH Blood Venous 7.38 (7.34-7.37)
[2019-08-07 03:50] LABS: BASOPHILS ABSOLUTE AUTO 0.03 K/mm3 (0.00-0.23); BASOPHILS PERCENT AUTO 0 % (0-2); EOSINOPHILS ABSOLUTE AUTO 0.24 K/mm3 (0.00-0.68); EOSINOPHILS PERCENT AUTO 2 % (0-6); Hematocrit 37.6 % (37.0-53.0); Hemoglobin 11.4 g/dL (13.5-17.5); IMMATURE GRAN ABSOLUTE AUTO 0.05 K/mm3 (0.00-0.10); IMMATURE GRAN PERCENT AUTO 1 % (0-1); LYMPHOCYTES ABSOLUTE AUTO 0.78 K/mm3 (0.84-5.20); LYMPHOCYTES PERCENT AUTO 8 % (21-46); MONOCYTES ABSOLUTE AUTO 0.63 K/mm3 (0.16-1.47); MONOCYTES PERCENT AUTO 6 % (4-13); Mean Corpuscular HGB 28.9 pg (26.0-34.0); Mean Corpuscular HGB Conc 30.3 g/dL (31.5-36.5); Mean Corpuscular Volume 95 fL (80-100); NEUTROPHILS ABSOLUTE AUTO 8.34 K/mm3 (1.96-9.15); NEUTROPHILS PERCENT AUTO 83 % (41-73); Platelet Count 206 K/mm3 (150-400); RDW Coefficient Variation 16.2 % (11.7-14.2); RDW Standard Deviation 57.3 fL (35.1-46.3); Red Blood Cell Count 3.94 M/mm3 (4.30-5.90); White Blood Cell Count 10.07 K/mm3 (4.00-11.30)
[2019-08-07 04:08] LABS: Anion Gap 2 mmol/L (6-16); Blood Urea Nitrogen 23 mg/dL (8-24); Bun/Creatinine Ratio 25.5 (12.0-20.0); CO2, Blood 32 mmol/L (21-32); Calcium, Blood 8.1 mg/dL (8.5-10.1); Chloride, Blood 106 mmol/L (98-108); Glomerular Filtration Rate >60 (60-); Glucose, Blood 94 mg/dL (70-99); Potassium, Blood 3.8 mmol/L (3.5-5.5); Sodium, Blood 140 mmol/L (136-145)
--- NOTE | 2019-08-07 06:19 | NUR ---
SHIFT SUMMARY PT CONT INTUBATED AND ON [facility] VENT. NO VENT CHANGES DURING THE NIGHT. VENT SETTINGS BILEVEL RATE 18 HIGH PEEP 25 LOW PEEP 16 PS 12 FIO2 100%. LUNGS CLEAR BUT DECREASED. PT SEDATED WITH PROPOFOL AND FENTANYL PRN. TURNED Q2HR. VEST CPT DONE. PT DECREASED SPO2 WITH TURNING WITH SLOW RECOVERY. PICC LINE TO RIGHT UPPER ARM DRSG INTACT. OG WITH TUBE FEED AT GOAL. MIN RESIDUALS. TMAX DURING THE NIGHT 102.0, MED WITH TYLENOL AND ADVIL. BLANKETS REMOVED, FAN ON AND ICE PACKS APPLIED. TEMP NOW DOWN TO 99.5. REPORT TO ON COMING NURSE
--- NOTE | 2019-08-07 08:00 | NUR ---
ASSUMED CARE ASSUMED CARE OF PT AT 0700. BEDSIDE REPORT RECEIVED FROM BARBRA HOFF. PT INTUBATED. VENT SETTINGS BILEVEL MODE WITH AC 18, HI PEEP 25, LOW PEEP 16, PS 12, FiO2 100%, SPO2 85-89%, RR NOTED TO BE IN THE 30'S. PT APPEARS RESTLESS AND AGITATED. MED WITH FENTANYL PER EMAR AND PROPOFOL INCREASED FROM 45 MCG/KG TO 55 MCG/KG. LUNG SOUNDS COARSE T/O AND THICK YELLOW/PINK FROTHY SECRETIONS SUCTIONED PER ET TUBE. ABDOMEN ROUND, FIRM, BT'S HYPOACTIVE T/O. VITAL HIGH PROTEIN TF RUNNING AT GOAL OF 45ML/HR c 30ML H20 FLUSH Q4H. RESIDUAL CHECK 10ML. PT HAS GAYTAN CATH IN PLACE DRAINING TEA COLORED URINE TO GRAVITY. RECTAL TEMP PROBE IN PLACE - SEE VS FLOWSHEET. MONITOR SHOWS SINUS RHYTHM WITH HR 80-90'S, BP STABLE. PICC LINE IN PLACE TO MARTA WITH PROPOFOL AND NS TKO. SANDRA SOFT WRIST RESTRAINTS IN PLACE. WILL CONTINUE TO MONITOR PT CLOSELY.
--- NOTE | 2019-08-07 09:50 | NUR ---
DR. RAKAN BLEDSOE ROUNDED ON PT. ADJUSTED VENT SETTINGS WITH RT AT BEDSIDE. CURRENT SETTINGS BILEVEL WITH AC 12, PS 12, HI PEEP 25, LOW PEEP 16, FIO2 100%. DISCUSSED DESATURATIONS AND PROLONGED RECOVERY TIME FOR SATS WELL SEDATION ISSUES. PLAN FOR PRN NIMBEX PUSHES TO ASSIST IN RECRUITMENT. NO ADDITIONAL ORDERS RECEIVED AT THIS TIME.
--- NOTE | 2019-08-07 11:20 | NUR ---
PICC LINE WITHDRAWN PER ORDERS. NEW CHG DRESSING APPLIED. STERILE TECHNIQUE USED.
[2019-08-07 12:01] LABS: PCO2 Arterial 56.2 mmHg (35-45); PO2 Arterial 66.6 mmHg (80-100); pH Blood Arterial 7.36 (7.35-7.45)
--- NOTE | 2019-08-07 13:00 | NUR ---
PRONE PT'S SATS REMAIN 85-86%. DISCUSSED WITH DR BLEDSOE AND DECISION MADE TO PRONE PT. PT PRE-MEDICATED WITH 50MCG FENTANYL AND 2MG ATIVAN IVP. RT'S PETRA AND DARIN IN TO ASSIST ALONG WITH DR BLEDSOE AND MULTIPLE RN'S. PT PLACED IN PRONE POSITION AND VENTILATOR SWITCHED TO AC 20, TV 400, PEEP 18, FIO2 100%. SPO2 SLOWLY INCREASING TO UPPER 80'S AT THIS TIME. PLAN TO KEEP PRONE FOR NEXT 4 HRS AND RE-EVALUATE. WILL CONTINUE TO MONITOR CLOSELY.
--- NOTE | 2019-08-07 17:40 | NUR ---
PT PLACED BACK IN SUPINE POSITION. ASSISTED WITH DR BLEDSOE, 2 RT'S AND MULTIPLE RN'S. VENT CONTINUES AC 20, TV 400, PEEP 18, FIO2 95%. SPO2 CURRENTLY 94%.
--- NOTE | 2019-08-07 19:00 | NUR ---
SHIFT SUMMARY PT REMAINS INTUBATED AND SEDATED. PT WAS PRONE TODAY FROM APPROX [id number]. VENT SETTINGS CHANGED FROM BILEVEL TO AC WHILE PRONED, CONTINUES TO BE ON AC OF 20, TV OF 400, PEEP 18, FiO2 95% AND SATS 92%. LUNG SOUNDS COARSE TO CLEAR WITH LESSENING SECRETIONS THIS AFTERNOON. CONTINUES TO BE IN SINUS RHYTHM. BP DECREASED AFTER TURNING PT BACK TO SUPINE - PROPOFOL DECREASED AND MAP >65 AT THIS TIME. TUBE FEEDS HELD DURING PRONE - RESUMED AFTER TURNED BACK TO SUPINE AT GOAL OF 45ML/HR. GAYTAN CATHETER DRAINING TO GRAVITY, PUT OUT 1250 ML OF TEA COLORED URINE. PICC LINE CONTINUES TO [facility], WITH PROPOFOL AT 50MCG/KG AND NS TKO. SANDRA SOFT WRIST RESTRAINTS IN PLACE. PT'S FATHER IN TO VISIT TODAY - PROVIDED UPDATE ON PLAN OF CARE BY DR BLEDSOE. BEDSIDE HANDOFF REPORT GIVEN TO BARBRA BOWSER.
[2019-08-07 20:50] LABS: Vancomycin, Trough 14.4 ug/mL (5.0-10.0)
--- NOTE | 2019-08-07 21:11 | NUR ---
[place] of Care: Care assumed at 1900hr. Patient intubated/sedated, with propofol gtt at 50mcg/kg/min. Patient responds to noxious stimuli, but appears to be calm and comfortable when not stimulated by staff. Vent to AC 20/400/18/95%, O2-92-94%. ETT- 8.0, 25cm at teeth. No s/s of pain or discomfort, tolerating vent mode without difficulty. Received orders for ICU electrolyte protocol and for respiratory panel/swab from Dr. Ramos early in shift. Respiratory panel/swab obtained and sent to lab. PICC line to rt upper arm patent and intact, infusing without difficulty. TF per OG infusing Vital High Protein at goal rate of 45ml/hr with 30ml H2O flush q4hr, residual of 20ml at 2000hr, no s/s of GI intolerance. Tan cath patent and intact, draining dark yellow, clear urine. Bilateral soft wrist restraints in place to protect lines, tubes, cords. Will continue to monitor.
[2019-08-07 22:51] LABS: Adenovirus Not Detected (NOT DETECT); Coronavirus 229E Not Detected (NOT DETECT); Coronavirus HKU1 Not Detected (NOT DETECT); Coronavirus NL63 Not Detected (NOT DETECT); Coronavirus OC43 Not Detected (NOT DETECT)
[2019-08-07 22:52] LABS: Bordetella pertussis Not Detected (NOT DETECT); Chlamydophila pneumoniae Not Detected (NOT DETECT); Human Metapneumovirus Not Detected (NOT DETECT); Human Rhinovirus/Enterovirus Not Detected (NOT DETECT); Influenza A Not Detected (NOT DETECT); Influenza A/2009-H1 Not Detected (NOT DETECT); Influenza A/H1 Not Detected (NOT DETECT); Influenza A/H3 Not Detected (NOT DETECT); Influenza B Not Detected (NOT DETECT); Mycoplasma pneumoniae Not Detected (NOT DETECT); Parainfluenza Virus 1 Not Detected (NOT DETECT); Parainfluenza Virus 2 Not Detected (NOT DETECT); Parainfluenza Virus 3 Not Detected (NOT DETECT); Parainfluenza Virus 4 Not Detected (NOT DETECT); Respiratory Syncytial Virus Not Detected (NOT DETECT)
[2019-08-08 04:06] LABS: BASOPHILS ABSOLUTE AUTO 0.02 K/mm3 (0.00-0.23); BASOPHILS PERCENT AUTO 0 % (0-2); EOSINOPHILS ABSOLUTE AUTO 0.13 K/mm3 (0.00-0.68); EOSINOPHILS PERCENT AUTO 1 % (0-6); Hemoglobin 11.7 g/dL (13.5-17.5); IMMATURE GRAN ABSOLUTE AUTO 0.04 K/mm3 (0.00-0.10); IMMATURE GRAN PERCENT AUTO 0 % (0-1); LYMPHOCYTES ABSOLUTE AUTO 0.51 K/mm3 (0.84-5.20); LYMPHOCYTES PERCENT AUTO 4 % (21-46); MONOCYTES ABSOLUTE AUTO 0.76 K/mm3 (0.16-1.47); MONOCYTES PERCENT AUTO 6 % (4-13); Mean Corpuscular HGB 29.1 pg (26.0-34.0); Mean Corpuscular Volume 97 fL (80-100); Mean Platelet Volume 9.8 fL (9.1-12.4); NEUTROPHILS ABSOLUTE AUTO 11.02 K/mm3 (1.96-9.15); NEUTROPHILS PERCENT AUTO 88 % (41-73); Platelet Count 188 K/mm3 (150-400); RDW Coefficient Variation 15.9 % (11.7-14.2); RDW Standard Deviation 57.1 fL (35.1-46.3); Red Blood Cell Count 4.02 M/mm3 (4.30-5.90); White Blood Cell Count 12.48 K/mm3 (4.00-11.30)
[2019-08-08 04:21] LABS: Anion Gap 1 mmol/L (6-16); Blood Urea Nitrogen 19 mg/dL (8-24); Bun/Creatinine Ratio 23.3 (12.0-20.0); CO2, Blood 33 mmol/L (21-32); Calcium, Blood 8.2 mg/dL (8.5-10.1); Chloride, Blood 106 mmol/L (98-108); Creatinine, Blood 0.82 mg/dL (0.60-1.20); Glomerular Filtration Rate >60 (60-); Glucose, Blood 103 mg/dL (70-99); Potassium, Blood 4.8 mmol/L (3.5-5.5); Sodium, Blood 140 mmol/L (136-145)
[2019-08-08 05:14] LABS: PCO2 Arterial 65.1 mmHg (35-45); PO2 Arterial 74.2 mmHg (80-100); pH Blood Arterial 7.31 (7.35-7.45)
--- NOTE | 2019-08-08 06:35 | NUR ---
Shift Summary: Patient remained intubated/sedated throughout shift. Vent settings remained at AC-20/400/18, FiO2 increased from 95% to 100% early in shift. spO2-88-92%. Tolerating vent mode without difficulty. Patient appeared calm/comfortable for majority of shift but did require x2 doses of prn Ativan, and x1 dose prn fentanyl for restlessness, and s/s of pain (facial grimace), both given with good effect noted. Propofol gtt decreased from 50mcg/kg/min to 45mcg/kg/min. Continues to not follow any commands, gross movement of all extremities. No significant changes to lab values this morning. PICC lien to lt upper arm remains patent and intact, infusing without difficulty. Tan cath remains patent and intact, draining dark, tea colored urine, 1300ml output this shift. TF continues to infuse at goal rate of 45ml/hr, no s/s of GI intolerance, residual's less than 40ml. Will continue to monitor until report to day shift RN.
--- NOTE | 2019-08-08 07:15 | NUR ---
ASSUMED CARE REPORT FROM BARBRA BOWSER. INTUBATED, VENTILATED AND SEDATED ON PROPOFOL AT 45 MCG/KG/MIN. FIO2 AT 100% PEEP 18 AC 20. BIOX 90-91% GURGLING NOTED, BUT COMPRESSION OF BALLOON DOESN'T MAKE IT STOP. RIGHT AKA. LEFT PEDAL PULSE PALPABLE.
--- NOTE | 2019-08-08 07:48 | NUR ---
COPIOUS SECRETIONS SX FROM BACK OF THROAT AND MOUTH. GURGLING STOPPED
--- NOTE | 2019-08-08 08:19 | NUR ---
CREAM COLORED DISCHARGE NOTED AROUND CATHETER.
--- NOTE | 2019-08-08 11:13 | NUR ---
BROTHER ([facility]) UPDATED. HE ASKED IF TOX SCREEN WAS DONE ON HIS BROTHER WHEN HE WAS ADMITTED BECAUSE LAST TIME THIS HAPPENED, PATIENT WAS USING [facility].
--- NOTE | 2019-08-08 11:23 | NUR ---
TF STOPPED FOR CPT. CPT VEST APPLIED LOOSELY AROUND CHEST. CPT DELAY FOR 1 HOUR AFTER MEDS GIVEN. BIOX 90-91% DURING CPT
--- NOTE | 2019-08-08 16:39 | NUR ---
TF ON HOLD FOR VEST CPT AT 1700
--- NOTE | 2019-08-08 17:40 | NUR ---
TF ON HOLD. CPT FOR 10 MIN BEING PERFORMED
--- NOTE | 2019-08-08 17:49 | NUR ---
FAMILY NOTIFICATION MESSAGE LEFT FOR EMMA VASQUEZ) TO CALL FOR UPDATE. ALSO LEFT MESSAGE FOR PARENTS. REACHED BROTHER MARY BY PHONE AND EXPLAINED PLAN TO TRANSFER PATIENT TO [facility]. BROTHER MARY LIVES IN [place], BUT IS CURRENTLY WORKING IN [place] AND WILL BE BACK IN [place] TOMORROW. HE ASKS TO BE UPDATED ON LOCATION AT [facility] WHEN THAT IS AVAILABLE.
--- NOTE | 2019-08-08 18:01 | NUR ---
DR. BLEDSOE CHANGED PEEP TO 20 PER [facility] PRIOR TO TRANSFER BY [employer] [facility]
--- NOTE | 2019-08-08 18:37 | NUR ---
[facility] UPDATED ON PLAN TO TRANSFER
--- NOTE | 2019-08-08 19:19 | NUR ---
REPORT TO BARBRA BOWSER. ORDER FOR NIMBEX GTT PRIOR TO TRANSPORT. BIS MONITOR APPLIED TO FOREHEAD. NIMBEX GTT STARTED BY BARBRA BOWSER.
--- NOTE | 2019-08-08 19:45 | NUR ---
Pope of Care: Care assumed at 1900hr. Bedside report received from Myrna, day shift RN. This nurse and Myrna initiated Nimbex gtt at shift change per Dr. Ramos's orders. No bolus dose of Nimbex given, gtt started at 3mcg/kg/min. BIS monitor applied before started Nimbex gtt, BIS score 43-50 at this time, propofol gtt infusing at 45mcg/kg/min. TOF assessed to patient's rt temporal before starting Nimbex gtt, 4 out of 4 achieved. Patient continues on ventilator set to AC 20/400/24/100%, tolerating vent without difficulty, respiratory rate of 26-28 at shift change. Plan/orders per Dr. Ramos to transfer patient to [facility], accepting physician is Dr. Lima. Received call at 1930hr from BARBRA Martin at [facility], report given to Mario, informed of bed assignment in the MICU, rm 13. Charge nurse Jody Pierre, contacting [facility] at this time to arrange transport. Will continue to monitor.
[2019-08-08 23:30] LABS: PCO2 Arterial 83.1 mmHg (35-45); PO2 Arterial 79.7 mmHg (80-100); pH Blood Arterial 7.23 (7.35-7.45)
--- NOTE | 2019-08-08 23:50 | NUR ---
UPDATE: Due to weather, air-transport for patient unable to fly tonight. Dr. Ramos then informed this nurse and ICU staff that patient is not stable/safe for ground transport to [facility]. Dr. Ramos then spoke with ECMO team/physcian at [facility]. Decision made for ECMO team to come to [facility] to place patient on ECMO before transport. Dr. Ramos also informed that ECMO team will be flying out of [place] at 0800hr tomorrow morning. Patient continues on Nimbex gtt, TOF remains at 4/4, but patient's respiratory rate now decreased from 26-28 to back up rate of 20. BIS monitor continues to show 40's-50's. Dr. Ramos placed arterial line to rt radial at approx 2230hr without difficult, ABG then drawn. ABG showed pH-7.23, CO2-83. Dr. Ramos then increased patient's tidal volume from 400 to 470, repeat ABG to be drawn in 1hr. After placement of arterial line, patient's BP showed 180's-190's, HR increased to 110-113. Prn fentanyl x1 given with good effect noted. BP now decreased to normal ranges. Nimbex gtt decreased to 2mcg/kg/min. Will continue to monitor.
[2019-08-09 01:09] LABS: PCO2 Arterial 70.6 mmHg (35-45); PO2 Arterial 79.2 mmHg (80-100); pH Blood Arterial 7.28 (7.35-7.45)
[2019-08-09 04:16] LABS: BASOPHILS ABSOLUTE AUTO 0.02 K/mm3 (0.00-0.23); BASOPHILS PERCENT AUTO 0 % (0-2); EOSINOPHILS ABSOLUTE AUTO 0.01 K/mm3 (0.00-0.68); EOSINOPHILS PERCENT AUTO 0 % (0-6); Hemoglobin 11.7 g/dL (13.5-17.5); IMMATURE GRAN ABSOLUTE AUTO 0.04 K/mm3 (0.00-0.10); IMMATURE GRAN PERCENT AUTO 0 % (0-1); LYMPHOCYTES ABSOLUTE AUTO 0.53 K/mm3 (0.84-5.20); LYMPHOCYTES PERCENT AUTO 5 % (21-46); MONOCYTES ABSOLUTE AUTO 0.69 K/mm3 (0.16-1.47); MONOCYTES PERCENT AUTO 6 % (4-13); Mean Corpuscular HGB 28.9 pg (26.0-34.0); Mean Corpuscular HGB Conc 29.3 g/dL (31.5-36.5); Mean Corpuscular Volume 99 fL (80-100); Mean Platelet Volume 10.9 fL (9.1-12.4); NEUTROPHILS ABSOLUTE AUTO 10.39 K/mm3 (1.96-9.15); NEUTROPHILS PERCENT AUTO 89 % (41-73); Platelet Count 206 K/mm3 (150-400); RDW Coefficient Variation 15.8 % (11.7-14.2); RDW Standard Deviation 57.4 fL (35.1-46.3); Red Blood Cell Count 4.05 M/mm3 (4.30-5.90); White Blood Cell Count 11.68 K/mm3 (4.00-11.30)
[2019-08-09 04:39] LABS: Anion Gap 3 mmol/L (6-16); Blood Urea Nitrogen 24 mg/dL (8-24); Bun/Creatinine Ratio 27.6 (12.0-20.0); CO2, Blood 32 mmol/L (21-32); Calcium, Blood 8.6 mg/dL (8.5-10.1); Chloride, Blood 107 mmol/L (98-108); Creatinine, Blood 0.87 mg/dL (0.60-1.20); Glomerular Filtration Rate >60 (60-); Glucose, Blood 127 mg/dL (70-99); Magnesium, Blood 2.5 mg/dL (1.6-2.4); Phosphorus, Blood 3.5 mg/dL (2.5-4.9); Potassium, Blood 5.2 mmol/L (3.5-5.5); Sodium, Blood 142 mmol/L (136-145)
[2019-08-09 05:34] LABS: PO2 Arterial 152 mmHg (80-100); pH Blood Arterial 7.32 (7.35-7.45)
--- NOTE | 2019-08-09 06:23 | NUR ---
Shift Summary: Patient remained on vent settings of AC-20/470/24/100% for remainder of shift. Dr. Ramos increased tidal volumes at approx 2330hr (see previous note). Tolerated vent mode without difficulty, spO2 increased from 88-92% to 93-95% throughout shift. Nimbex gtt decreased from 3mcg/kg/min to 2 mcg/kg/min, TOF remains at 4/4, but patient's respiratory rate continues at back up rate of 20 since Nimbex gtt started at start of shift. BIS score continues in the 40's, propofol gtt decreased from 45 to 40mcg/kg/min. HR/BP remain stable. Tan cath remains patent and intact, draining dark, clear, tea colored urine. PICC line remains patent and intact, infusing without difficulty. Will continue to monitor until bedside report to day shift RN.
--- NOTE | 2019-08-09 07:12 | NUR ---
ASSUMED CARE REPORT FROM BARBRA BOWSER. NIMBEX GTT AT 2 MCG/KG/MIN. PROPOFOL AT 40 MCG/KG/MIN. BIS MONITOR 41. VENT AC 20 Vt 470 PEEP 24 FIO2 100%. RR 20 EVIDENCE OF PARALYSIS. NEW ART LINE RIGHT RADIAL. WAITING FOR ECMO TEAM [facility] TO ADVISE ON TRANSPORT.
--- NOTE | 2019-08-09 07:21 | NUR ---
SON NOTIFIED OF NEED TO BE NEAR PHONE ECMO MD NEEDS CONSENT. SON IS IN [place], [place] AND WILL BE AVAILABLE BY PHONE THIS MORNING.
--- NOTE | 2019-08-09 08:01 | NUR ---
[facility] NOTIFIED OF TX TO [facility]. SAMUEL OF [facility] AND DR. CHRISTIAN PIERRE CONFERRED WITH DR. BLEDSOE.
--- NOTE | 2019-08-09 08:03 | NUR ---
CONTACTED LAB RE: SPECIMENS SENT TO [facility]. LEFT [place] SHORTLY AFTER 6AM
--- NOTE | 2019-08-09 08:11 | NUR ---
MIGUEL WITH [facility] UPDATED ON TRANSPORT TIMES
--- NOTE | 2019-08-09 08:35 | NUR ---
BP ELEVATED WITH ORAL CARE AND EBEN CARE. CONTINUED MILKY DRAINAGE AROUND CATHETER. FENTANYL 50 MCG IV GIVEN
--- NOTE | 2019-08-09 08:45 | NUR ---
TF STOPPED AND OGT FLUSHED IN PREP FOR TX.
--- NOTE | 2019-08-09 08:46 | NUR ---
BP RESPONDED TO PAIN MEDICATION
--- NOTE | 2019-08-09 09:01 | NUR ---
NIMBEX TO 3 MCG/KG/MIN
--- NOTE | 2019-08-09 09:41 | NUR ---
REPORT GIVEN TO BARBRA HOFF OF [employer]. IN [place] WAITING FOR FOG TO LIFT. PATIENT DIAMETER MEASURED ACROSS HIPS AND SHOULDERS. 74 INCHES
--- NOTE | 2019-08-09 10:14 | NUR ---
TITRATING FIO2 DOWN. BIOX 95% AT 90% 94% AT 80%
--- NOTE | 2019-08-09 10:32 | NUR ---
FIO2 TO 70%
--- NOTE | 2019-08-09 10:50 | NUR ---
FI02 TO 80% FOR BIOX 92%
--- NOTE | 2019-08-09 10:57 | NUR ---
MAINTAINING BIOX AT 94% ON 80% FIO2
--- NOTE | 2019-08-09 10:58 | NUR ---
MOTHER AND FATHER CALLED. ADVISED [facility] WAS ENROUTE TO TRANSPORT PATIENT TO [facility] AND EMMA WILL BE CONTACTED BY FROM [facility]
--- NOTE | 2019-08-09 11:18 | NUR ---
BARBRA BARNARD AT [facility] GIVEN PRELIMINARY REPORT
--- NOTE | 2019-08-09 12:15 | NUR ---
PATIENT OUT THE DOOR WITH [employer] [facility] [employer]. BELONGINGS LEFT IN ROOM FOR FAMILY TO COLLECT. MESSAGE LEFT ON PARENT'S PHONE. [facility] NOTIFIED.
--- NOTE | 2019-08-09 12:26 | NUR ---
BARBRA BARNARD AT [facility] UPDATED.
--- NOTE | 2019-08-09 18:48 | NUR ---
NOTIFIED SON EMMA THAT BELONGINGS ARE HERE AND THAT MESSAGE WAS LEFT WITH PATIENT'S PARENTS WHO LIVE IN [place]
[2019-08-10 10:51] LABS: Test Name COVID
[2019-08-11 02:09] LABS: CHLAMYDIA TRACHOMATIS, NAA Negative (Negative); NEISSERIA GONORRHOEAE, NAA Negative (Negative)
== END 2019-08-09 12:49 | disposition short-term general hospital (02) | DRG 208 ==
LOC: ER 07:23 → PCU 10:12 → ICUE 10:12 → PCU 11:30 → ICUE 08-02 16:47
PROVIDERS: Emergency Medicine; Hospitalist; Internal Medicine Critical Care Medicine; Internal Medicine Pulmonary Disease; Pharmacist; ADMIT Family Medicine
PROC: 0BH17EZ Insertion of Endotracheal Airway into Trachea, Via Natural or Artificial Opening (ICD-10-PCS; principal; 2019-08-02)
PROC: 5A1945Z Respiratory Ventilation, 24-96 Consecutive Hours (ICD-10-PCS; 2019-08-02)
PROC: 03HB33Z Insertion of Infusion Device into Right Radial Artery, Percutaneous Approach (ICD-10-PCS; 2019-08-08)
DX: J96.21 Acute and chronic respiratory failure with hypoxia (principal); G92 Toxic encephalopathy; J18.0 Bronchopneumonia, unspecified organism; Z68.42 Body mass index [BMI] 45.0-49.9, adult; E66.2 Morbid (severe) obesity with alveolar hypoventilation; J44.1 Chronic obstructive pulmonary disease with (acute) exacerbation; J96.22 Acute and chronic respiratory failure with hypercapnia; R79.89 Other specified abnormal findings of blood chemistry; G47.33 Obstructive sleep apnea (adult) (pediatric); K74.60 Unspecified cirrhosis of liver; Z99.81 Dependence on supplemental oxygen; Z87.891 Personal history of nicotine dependence; Z89.611 Acquired absence of right leg above knee
CPT/HCPCS: 0099U; 31500; 31720; 36415; 36569; 36600; 36620; 51702; 71045; 71260; 80048; 80053; 80202; 81001; 82803; 82947; 83605; 83735; 83880; 84100; 84145; 84443; 84484; 85025; 86140; 87040; 87070; 87086; 87205; 87491; 87591; 90686; 93005; 93010; 93306; 93971; 94002; 94003; 94640; 94660; 94667; 94668; 94762; 96365; 96367; 99285-25; A9270; A9270-GY; C1751; G0008; J0360; J0456; J0696; J1650; J1940; J2060; J2250; J2405; J2543; J2704; J2930; J3010; J3370; J3480; J7030; J7040; J7050; J7060; J7512; Q9967

== ENCOUNTER 2019-10-25 10:38 | Inpatient (IN) | payer OTHER ==
[~2019-10-25] VITALS: Ht 177.8 cm; Wt 144.2 kg
[~2019-10-25 10:38] MED LIST: ALBU3IS INH; ALBU90OI; AMLO10 PO; METF500 PO; POTA10T PO; PRED20 PO
[2019-10-25 11:10] LABS: BASOPHILS ABSOLUTE AUTO 0.04 K/mm3 (0.00-0.23); BASOPHILS PERCENT AUTO 1 % (0-2); EOSINOPHILS ABSOLUTE AUTO 0.01 K/mm3 (0.00-0.68); EOSINOPHILS PERCENT AUTO 0 % (0-6); Hematocrit 37.4 % (37.0-53.0); Hemoglobin 10.3 g/dL (13.5-17.5); IMMATURE GRAN ABSOLUTE AUTO 0.14 K/mm3 (0.00-0.10); IMMATURE GRAN PERCENT AUTO 2 % (0-1); LYMPHOCYTES ABSOLUTE AUTO 1.12 K/mm3 (0.84-5.20); LYMPHOCYTES PERCENT AUTO 14 % (21-46); MONOCYTES ABSOLUTE AUTO 0.42 K/mm3 (0.16-1.47); MONOCYTES PERCENT AUTO 5 % (4-13); Mean Corpuscular HGB 26.5 pg (26.0-34.0); Mean Corpuscular HGB Conc 27.5 g/dL (31.5-36.5); Mean Corpuscular Volume 96 fL (80-100); Mean Platelet Volume 9.8 fL (9.1-12.4); NEUTROPHILS ABSOLUTE AUTO 6.49 K/mm3 (1.96-9.15); NEUTROPHILS PERCENT AUTO 79 % (41-73); NRBC ABSOLUTE 0.03 K/mm3 (0.00-0.02); NRBC Auto 0.4 /100 WBC (0.0-0.2); Platelet Count 239 K/mm3 (150-400); RDW Coefficient Variation 17.4 % (11.7-14.2); RDW Standard Deviation 61.3 fL (35.1-46.3); Red Blood Cell Count 3.89 M/mm3 (4.30-5.90); White Blood Cell Count 8.22 K/mm3 (4.00-11.30)
[2019-10-25 11:31] LABS: Creatine Kinase MB 5.1 ng/mL (0.0-3.6); Creatine Kinase MB Index 0.7 (0.0-4.0)
[2019-10-25 11:32] LABS: Bilirubin, Urine Neg (Neg); Blood, Urine 4+ (Neg); Glucose Qualitative, Urine Neg (Neg); Ketones, Urine Neg (Neg); Leukocyte Esterase, Urine Neg (Neg); Nitrite, Urine Neg (Neg); Protein, Urine 4+ (Neg); Specific Gravity, Urine 1.025 (1.003-1.022); Urobilinogen, Urine NORM (Normal)
[2019-10-25 11:33] LABS: Alanine Aminotransfer (ALT/SGP 29 U/L (12-78); Albumin/Globulin Ratio 0.7 (0.8-1.8); Alk Phos 121 U/L (50-136); Anion Gap 4 mmol/L (6-16); Aspartate Aminotrans (AST/SGOT 44 U/L (12-37); Bilirubin, Total 0.6 mg/dL (0.1-1.0); Blood Urea Nitrogen 10 mg/dL (8-24); Bun/Creatinine Ratio 10.6 (12.0-20.0); CO2, Blood 32 mmol/L (21-32); Calcium, Blood 7.4 mg/dL (8.5-10.1); Chloride, Blood 104 mmol/L (98-108); Creatinine, Blood 0.94 mg/dL (0.60-1.20); Ethanol (Alcohol), Blood, Med <3 mg/dL; Free Thyroxine 0.72 ng/dL (0.70-1.60); Globulin, Blood 4.4 g/dL (2.2-4.0); Glomerular Filtration Rate >60 (60-); Glucose, Blood 129 mg/dL (70-99); Potassium, Blood 4.6 mmol/L (3.5-5.5); Salicylate <1.7 mg/dL (2.8-20.0); Sodium, Blood 140 mmol/L (136-145); Total Protein, Blood 7.4 g/dL (6.4-8.2)
[2019-10-25 11:34] LABS: Acetaminophen, Random <2.0 ug/mL (10.0-30.0)
[2019-10-25 11:35] LABS: Thyroid Stimulating Hormone 0.382 uIU/mL (0.360-4.800)
[2019-10-25 11:51] LABS: PO2 Arterial 83.4 mmHg (80-100); pH Blood Arterial 7.21 (7.35-7.45)
[2019-10-25 11:51] LABS: Appearance, Urine Clear (Clear); Color, Urine Yellow (P-Yellow)
[2019-10-25 11:52] LABS: PCO2 Arterial 85.1 mmHg (35-45)
[2019-10-25 11:59] LABS: Amorphous Mod (0-Heavy); Bacteria Mod /hpf; Squamous Epithelial Cells Mod /hpf (Few)
[2019-10-25 12:00] LABS: Yeast/Fungi Urine Few /hpf
[2019-10-25 12:02] LABS: U Amphetamine Screen DETECTED; U Barbituate Screen Not Detected; U Benzodiazapine Screen Not Detected; U Buprenorphine Screen Not Detected; U Cannabinoids Screen Not Detected; U Cocaine Screen Not Detected; U Methadone Screen Not Detected; U Methamphetamine Screen DETECTED; U Opiates Screen Not Detected; U Oxycodone Screen Not Detected; U Phencyclidine Screen Not Detected; U Propoxyphene Screen Not Detected
--- NOTE | 2019-10-25 15:00 | NUR ---
Received report from Dandy BELLE. Patient was transprorted via gurney and portable vent. He was a four person slide transfer and is being ventulated with 8.0 ET and 26cm at lips with vent setting AC 20, TV 450, FiO2 100% and peep 5.0 and sats 98%. He has OG Clamped and was advanced by Dandy just prior to arrival. Received order to place PICC. He has 18ga LAC and 20 ga LH both dressings intact and site WNL's, LAC infusing Propofol at 30 mcg/kf/min and NS TKO. He has 16 Fr Temp hutchins Temp 98.1. Right AKA and stump C/D/I
--- NOTE | 2019-10-25 17:00 | NUR ---
Placed PICC triple lumen in MARTA and transferred IV line to [facility] and pull IV that came loose. Dr Ramos in room with patient and changed vent settings to AC 20, TV 450, FiO2 80% and PEEP 10 and sats 93%. Placed patient in bilateral soft wrist at 1430 and charted. No other significant changes.
[2019-10-25 17:15] LABS: PCO2 Arterial 61.1 mmHg (35-45); PO2 Arterial 74.2 mmHg (80-100); pH Blood Arterial 7.37 (7.35-7.45)
--- NOTE | 2019-10-25 19:08 | NUR ---
Patient has been resting without change. Propofol running at 30mcg/kg/min, NS at 10 ml/hr. Started ordered Vital High Protien at 15ml/hr which is goal and 30 ml Q4 wtaer flushes. Temp hutchins 98.4. No vent changes and has been resting on vent. Changed linen.
--- NOTE | 2019-10-25 22:35 | NUR ---
ASSUMED CARE OF PT, REPORT RCV'D FROM BARBRA VELARDE. PT INTUBATED AND SEDATED. PROPOFOL @ 40 MCG/KG/MIN. VENT SETTINGS AC 24/450/10/90%, SPO2 88-89%. LUNG SOUNDS COARSE T/O, OCCASIONAL COUGH. PT EASILY AGITATED WITH ORAL CARE AND REPOSITIONING. PT THRASHES HEAD BACK/FORTH, BITES ETT, PULLS ON RESTRAINTS AND TRIES TO GRAB VENT TUBING. UPPER THIGH TO MID ABDOMEN RED AND WARM TO TOUCH, SEE PICTURES IN CHART. MARKED ABDOMEN TO CONTINUE MONITORING FOR INCREASED REDNESS. TEMP GAYTAN PATENT AND DRAINING CLEAR YELLOW URINE. VITAL HIGH PROTEIN TUBE FEEDING AT GOAL RATE OF 15 ML/HR WITH 30 ML Q4 FLUSH. SEE FULL SHIFT ASSESSMENT
--- NOTE | 2019-10-26 02:08 | NUR ---
PT CONTINUING TO DESAT WITH O2 SATS OF 87-88% WITH FIO2 INCREASED TO 100%. DR. BLEDSOE CALLED TO BEDSIDE, VENT SETTINGS CHANGED TO 20/450/20/100%, SATS CURRENTLY 92%.
[2019-10-26 03:57] LABS: Hematocrit 41.5 % (37.0-53.0); Hemoglobin 12.3 g/dL (13.5-17.5); Mean Corpuscular HGB 26.3 pg (26.0-34.0); Mean Corpuscular HGB Conc 29.6 g/dL (31.5-36.5); Mean Platelet Volume 9.6 fL (9.1-12.4); Platelet Count 252 K/mm3 (150-400); RDW Coefficient Variation 16.7 % (11.7-14.2); RDW Standard Deviation 54.8 fL (35.1-46.3); Red Blood Cell Count 4.67 M/mm3 (4.30-5.90); White Blood Cell Count 7.53 K/mm3 (4.00-11.30)
[2019-10-26 04:15] LABS: Mean Corpuscular Volume 89 fL (80-100)
[2019-10-26 04:16] LABS: Anion Gap 5 mmol/L (6-16); Blood Urea Nitrogen 15 mg/dL (8-24); CO2, Blood 34 mmol/L (21-32); Chloride, Blood 101 mmol/L (98-108); Creatinine, Blood 1.07 mg/dL (0.60-1.20); Glomerular Filtration Rate >60 (60-); Glucose, Blood 130 mg/dL (70-99); Potassium, Blood 4.5 mmol/L (3.5-5.5); Sodium, Blood 140 mmol/L (136-145)
--- NOTE | 2019-10-26 05:21 | NUR ---
SHIFT SUMMARY PT REMAINS INTUBATED, VENT SETTINGS AC 20/450/20/100%, O2 SATS 93%. SEDATED ON PROPOFOL 40 MCG/KG/MIN WITH ATIVAN AND FENTANYL PRN. PT REMAINS EASILY AROUSED, LESS AGITATED WITH ORAL CARE. LUNG SOUNDS REMAIN COARSE T/O. MINIMAL SECRETIONS SUCTIONED FROM ETT TUBE. PT NSR, BP WNL. 3400 ML URINARY OUTPUT, URINE APPEARS PURULENT AT THIS TIME. PUS AROUND CATHETER, CATH CARE PERFORMED. WILL REPORT TO DAYSHIFT NURSE.
--- NOTE | 2019-10-26 08:00 | NUR ---
ASSUMED CARE / DR PRIETO: REPORT RECEIVED FROM KERRI Antonio RN. ASSUMED CARE OF THIS PT AT APPROX 0700. ON ASSESSMENT, THE PT IS SEDATED W/ PROPOFOL & INTUBATED. HE IS RESTING QUIETLY, SHOWING NO S/SX PAIN OR DISCOMFORT. WITHDRAWS EXTREMITIES TO PAINFUL STIMULUS & GRIMACES. LS ARE COARSE & DIM T/O, O2 SATS > 92% W/ VENT SETTINGS: AC 20/450/20/95%. MONITOR SHOWS SR W/ HR 90s, BP STABLE. OGT IN PLACE W/ TF OF VHP AT GOAL RATE OF 15 ML/HR, NO RESIDUALS NOTED. GAYTAN PATENT/ DRAINING, DIURESING PER EMAR. PURULENT URINE NOTED IN GAYTAN TUBING. SKIN CONDITION OVERALL CDI. PT W/ WELL HEALED R SIDE AKA. PROVIDER AT BEDSIDE TO EVAL PT. HE STS NO CHANGES AT THIS TIME, CONTINUE POC PER TELEPHONE OPERATOR CHIEF SERVICE. WILL CONTINUE TO MONITOR & UPDATE NEEDED.
--- NOTE | 2019-10-26 11:10 | NUR ---
DR DO: PROVIDER AT BEDSIDE TO EVAL PT AT APPROX 1000. HE WOULD LIKE NIMBEX INITIATED PT IS REQUIRING INCREASED PEEP OF 20 & IS HIGH RISK FOR PNEUMO. ORDERS PLACED. ONCE PT IS PARALYZED ADEQUATELY, HE WOULD LIKE THE PEEP TO BE TITRATED DOWN BY INTERVALS OF 2 W/ GOAL OF 12 TODAY. GOAL O2 SATS 88%.
--- NOTE | 2019-10-26 15:06 | NUR ---
Pt visit earlier today. Pt resting in bed and is intubated. Pt appears comfortable with no S/S of distress. Spoke with Bedside RN Ailyn and discussed case. Ailyn reports a son called claiming to have POA. Called and spoke with Pt's father Ulises and mother Aminta. Provided update and both parents confirm Pt's son Checo Pretty is Pt's POA. Checo's number is . Called and spoke with Pt's son Checo. Provided update and discussed code status. Checo reports he is POA but has lost the documentation stating POA. Listened as Checo reports visit with Pt when Pt was at [facility]. Pt made him self a DNR/DNI. Checo provides contact information for Pt's other four children to confirm Checo is the decision maker for Pt. Called and spoke with Pt's children Alcides, Nathan, and Taylor. Unable to reach Matheus, with busy signal on both attempts. Confirmed with children that Checo is the decision maker. Updated children on Pt's condition. Instructed information that was obtained will be relayed to Pt's Bedside RN and Talent Development Consultant. Anwered questions and concerns. Called and left a message with [facility] Palliative Care department to learn if Pt completed a POLST during his stay. Await a response. Called Checo back and confirmed his other siblings agree that he is the decision maker. Instructed if decisions need to be made or plan of care changes then he will be contacted. Relayed information to Bedside RN Ailyn and Dr Wilkins. Dr Muro reports plan to call son regarding plan of care. Checo Pretty (POA) . Called admitting to update Pt's contact information. Palliative Care will remain available.
--- NOTE | 2019-10-26 17:41 | NUR ---
SHIFT SUMMARY: NO ACUTE CHANGES TO PT CONDITION SINCE PRIOR UPDATES. HE REMAINS SEDATED W/ PROPOFOL & INTUBATED, NIMBEX INFUSING PER ORDERS. VENT SETTINGS NOW: AC 20/450/10/60% W/ O2 SATS > 92%. MONITOR SHOWS SR W/ HR 80s, BP STABLE. OGT IN PLACE W/ TF OF VHP INFUSING AT GOAL RATE OF 15 ML/HR W/ 30 ML H2O FLUSH Q4H, NO RESIDUALS. GAYTAN PATENT/ DRAINING YELLOW, PURULENT URINE. SKIN CONDITION UNCHANGED & OVERALL CDI, Q2H REPOSITIONING TO MAINTAIN SKIN INTEGRITY. WILL CONTINUE TO MONITOR & REPORT OFF TO ONCOMING RN.
--- NOTE | 2019-10-26 20:00 | NUR ---
ASSUMPTION OF CARE: PT INTUBATED, SEDATED, AND PARALYZED. TRAIN OF FOUR-3/4. AFEBRILE. LUNG SOUNDS COARSE T/O. VENT SETTINGS-20/450/PEEP10/FIO2 60%. SPO2 >90%. IN NSR. SBP IN THE 110-120S. HR IN THE 80S-90S. OGT IN PLACE WITH PIVOT 1.5 AT GOAL OF 15MLS/HR-NO RESIDUALS. TEMP GAYTAN IN PLACE. DRAINING CLEAR YELLOW URINE. PT HAS MULTIPLE TATTOOS T/O. ABD IS RED-OUTLINED AND MARKED. R AKA-SKIN IS C/D/I. PICC IN MARTA AND PIV 18G IN LAC-PATENT AND SL. PROPOFOL INFUSING AT 40MCG AND NIMBEX INFUSING AT 2MCG/KG-DOSING WEIGHT IS 157KG. WILL CONTINUE TO MONITOR
[2019-10-27 05:33] LABS: Anion Gap 6 mmol/L (6-16); Blood Urea Nitrogen 23 mg/dL (8-24); Bun/Creatinine Ratio 20.5 (12.0-20.0); CO2, Blood 33 mmol/L (21-32); Chloride, Blood 101 mmol/L (98-108); Creatinine, Blood 1.12 mg/dL (0.60-1.20); Glomerular Filtration Rate >60 (60-); Glucose, Blood 131 mg/dL (70-99); Magnesium, Blood 2.6 mg/dL (1.6-2.4); Phosphorus, Blood 4.1 mg/dL (2.5-4.9); Potassium, Blood 4.1 mmol/L (3.5-5.5); Sodium, Blood 140 mmol/L (136-145)
--- NOTE | 2019-10-27 06:03 | NUR ---
SHIFT SUMMARY: NO ACUTE CHANGES T/O SHIFT. REMAINS INTUBATED, SEDATED, PARALYZED. LUNG SOUNDS COARSE. VENT SETTINGS 20/450/10/70%. SPO2 >90%. NSR. SBP IN THE 120-140S, HR IN THE 90S. BT X 4-NO BM THIS SHIFT. OGT IN PLACE WITH PIVOT AT GOAL OF 15MLS/HR. TEMP GAYTAN IN PLACE DRAINING CLEAR YELLOW URINE. 18G IN LAC-PATENT AND SL. PICC IN MARTA. PROPOFOL INFUSING AT 45MLS/HR. NIMBEX AT 1.5. TRAIN OF 4-2/4. WILL CONTINUE TO MONITOR
--- NOTE | 2019-10-27 07:30 | NUR ---
received report from Huseyin BELLE. Paatient intubated, sedated and paralyzed. He has 8.0 ET 26 cm at lips and settings are AC 20, TV 450, FiO2 70%, and PEEP 10.0 and sats 90-93%. He is paralyzed r/t coughing and has BIZ monitor at 42 with train of 4 at 2.He has 18ga IV in LAC dressing intact and site WNL's and is flushed and SL'd. He also has PICC line MARTA dressing intact and site WNL's and is infusing Propofol at 45 mcg/kg/min, NS TKO, Nimbex 1.5 mcg/kg/min. He also has OG in place infusing Vital High Protien at 15ml/hr goal rate and 30ml water flushes Q4. He has Tan in place draining to gravity yellow urine. Bilateral soft restraints which will be removed shortly as he is paralyzed. He is a R AKA.
--- NOTE | 2019-10-27 09:27 | NUR ---
No chnages in gtt's or vent settings. Dr Muro in room currently assessing. Nimbex remains at 1.5 mcg/kg/min with BIS 48 and Train of four is a 2.
--- NOTE | 2019-10-27 12:32 | NUR ---
No changes with Nibex, Propofol. FiO2 titrated down to 50% and sats 87-92% and Ok with Dr Muro to have sats as low as 87%. No other vent setting changes. Patient VSS See EMR.
--- NOTE | 2019-10-27 13:37 | NUR ---
Pt resting in bed and is intubated. Pt appears comfortale with no S/S of distress at this time. Spoke with Bedside RN Mirza and discussed case. Pt's parents called and reported concerns of Pt's wishes for code status. Pt's son Checo (POAshish) reports Pt's wishes are to be DNR and chose this option when he was at [facility]. Pt's parents report Pt's wishes are to be Full Code. Mirza reports plan to relay information to Dr Muro when he makes his rounds. Reviewed with Mirza Ethics consult may be beneficial if needed. Palliative Care will remain available.
--- NOTE | 2019-10-27 13:57 | NUR ---
Patient has been hypertensive 150 systolic with rates <100. Called Dr Muro and recieved orders for Labatelol 20 mg x1. No further vent settings and sats 87-92%.
--- NOTE | 2019-10-27 16:43 | NUR ---
Patient catheter looked have little output and tried to flush and blocked and pulled old hutchins and student Yanet placed 18 Fr Temp hutchins and immediately 900 ml yellow urine out. No Other changes in gtts and vent settings other than FiO2 up to 45% for 86% sats. VSS. Labatelol worked and systolics 100-120's.
[2019-10-27 17:09] LABS: Source, Urine Catheter
[2019-10-27 17:15] LABS: Bilirubin, Urine Neg (Neg); Blood, Urine 2+ (Neg); Glucose Qualitative, Urine Neg (Neg); Ketones, Urine Neg (Neg); Leukocyte Esterase, Urine Neg (Neg); Nitrite, Urine Neg (Neg); Protein, Urine 1+ (Neg); Urobilinogen, Urine NORM (Normal)
[2019-10-27 17:22] LABS: Appearance, Urine Clear (Clear); Color, Urine Yellow (P-Yellow)
[2019-10-27 17:23] LABS: White Blood Cells, Urine 0-2 /hpf (0-5)
[2019-10-27 17:24] LABS: Bacteria Rare /hpf; Squamous Epithelial Cells Not Seen /hpf (Few)
--- NOTE | 2019-10-27 18:03 | NUR ---
Patient remains intubated, sedated, and paralyzed. His vent settings are AC 20, TV 450, FiO2 45% and PEEP 10.0 and sats 88-92%. New temp hutchins placed and draining well to gravity clear yellow.. No stool this shift. Picc line intact and dressing WNL's and is infusing Propofol 45 Mcg/kg/min, Nimbex 1.5 mcg/kg/min, NS TKO with ABX. Secretions today have been milky white and small amounts. Train of four has been 2 and BIZ 40-50's. No real changes with patient. Parents called and dis-agree with grandsons decsion and state that patent wanted to be full code after he came back from [facility] and talked with them to discuss with POA grandson.
--- NOTE | 2019-10-27 20:01 | NUR ---
ASSUMED PT CARE FROM BARBRA VELARDE AT 1915 PT INTUBATED/SEDATED. PROPOFOL AT 45MCG/KG/MIN. NIMBEX GTT AT 1.5 MCG/KG/MIN. TRAIN OF FOUR: 09/11. BIS MONITOR READING 40-50'S. PT IS UNRESPONSIVE. VENT SETTINGS: AC 20, TV 450, FIO2 45%, PEEP 10. BIOX LOW 90'S. PER REPORT DR. HI HUNTER WITH OXYGEN SATURATIONS DOWN TO 87%. GOAL IS TITRATE FIO2 DOWN TO 40% BEFORE TITRATING PEEP. VITAL HIGH PROTEIN INFUSING AT GOAL OF 15MLS/HR; WATER FLUSHES 30CC Q4 HOURS. GAYTAN CATHETER THAT IS PATENT AND DRAINING TO GRAVITY; CLEAR, YELLOW URINE. NO RESTRAINTS D/T PT BEING ON NIMBEX AT THIS TIME. WILL CONTINUE TO MONITOR.
[2019-10-28 03:42] LABS: BASOPHILS ABSOLUTE AUTO 0.01 K/mm3 (0.00-0.23); BASOPHILS PERCENT AUTO 0 % (0-2); EOSINOPHILS ABSOLUTE AUTO 0.01 K/mm3 (0.00-0.68); EOSINOPHILS PERCENT AUTO 0 % (0-6); IMMATURE GRAN ABSOLUTE AUTO 0.02 K/mm3 (0.00-0.10); IMMATURE GRAN PERCENT AUTO 0 % (0-1); LYMPHOCYTES ABSOLUTE AUTO 1.22 K/mm3 (0.84-5.20); LYMPHOCYTES PERCENT AUTO 13 % (21-46); MONOCYTES ABSOLUTE AUTO 0.55 K/mm3 (0.16-1.47); MONOCYTES PERCENT AUTO 6 % (4-13); Mean Corpuscular HGB 26.3 pg (26.0-34.0); Mean Corpuscular Volume 88 fL (80-100); Mean Platelet Volume 9.7 fL (9.1-12.4); NEUTROPHILS ABSOLUTE AUTO 7.43 K/mm3 (1.96-9.15); NEUTROPHILS PERCENT AUTO 80 % (41-73); Platelet Count 259 K/mm3 (150-400); RDW Coefficient Variation 17.8 % (11.7-14.2); RDW Standard Deviation 57.4 fL (35.1-46.3); Red Blood Cell Count 4.57 M/mm3 (4.30-5.90); White Blood Cell Count 9.24 K/mm3 (4.00-11.30)
[2019-10-28 04:02] LABS: Anion Gap 5 mmol/L (6-16); Blood Urea Nitrogen 28 mg/dL (8-24); Bun/Creatinine Ratio 25.9 (12.0-20.0); CO2, Blood 35 mmol/L (21-32); Calcium, Blood 7.7 mg/dL (8.5-10.1); Chloride, Blood 103 mmol/L (98-108); Creatinine, Blood 1.08 mg/dL (0.60-1.20); Glomerular Filtration Rate >60 (60-); Glucose, Blood 96 mg/dL (70-99); Magnesium, Blood 2.5 mg/dL (1.6-2.4); Phosphorus, Blood 4.2 mg/dL (2.5-4.9); Potassium, Blood 3.7 mmol/L (3.5-5.5); Sodium, Blood 143 mmol/L (136-145)
--- NOTE | 2019-10-28 05:16 | NUR ---
DR. DO CALL OUT TO DR. DO REGARDING BIOX 87% WITH FIO2 AT 100% AND PEEP 14. ORDERS TO TITRATE PEEP TO 18 NEEDED; HOWEVER, DR. DO IS OKAY WITH OXYGEN SATURATIONS BEING AT 87%. NOTIFIED OF TURNING NIMBEX ON STANDBY TO OBTAIN SPUTUM SAMPLE, WELL ATTEMPT EFFECTIVE COUGH TO SEE IF OXYGEN SATURATIONS WOULD IMPROVE; HOWEVER, THIS WAS UNSUCCESSFUL. THEREFORE, NEW ORDERS TO CONTINUE NIMBEX THIS MORNING AND NOT TO TURN OFF AT 0700.
--- NOTE | 2019-10-28 05:47 | NUR ---
END OF SHIFT SUMMARY PT REMAINS INTUBATED/SEDATED AND PARALYZED. VENT AC 20, TV 450, PEEP 14, FIO2 100%; BIOX 87-90%. SEE PREVIOUS NOTE REGARDING DISCUSSION WITH DR. DO. PROPOFOL REMAINS AT 45MCG/KG/MIN. NIMBEX GTT 1.5MCG/KG/MIN INFUSING VIA PICC TO RIGHT UPPER EXTREMITY. 18G TO LEFT AC. TRAIN OF FOUR: 09/11 T/O SHIFT. BIS MONITOR READS BETWEEN 40-50'S. TURNED OFF NIMBEX GTT FOR A SHORT PERIOD OF TIME, APPROXIMATELY 20 MINUTES, TO STIMULATE COUGH REFLEX IN ORDER TO OBTAIN SPUTUM SAMPLE; EFFECTIVE. NIMBEX RESUMED AT 1.5MCG/KG/MIN. TUBE FEEDING REMAINS AT 15MLS/HR, VITAL HIGH PROTEIN, MINIMAL RESIDUALS. GAYTAN CATHETER REMAINS PATENT AND DRAINING TO GRAVITY; CLEAR, YELLOW. CHANGED DRESSING TO LLE; SEE NURSE ORDERS. PT REMAINS OUT OF RESTRAINTS D/T NIMBEX GTT; NEW ORDERS TO KEEP NIMBEX INFUSING. WILL CONTINUE TO MONITOR UNTIL REPORT IS HANDED OFF TO ONCOMING RN.
--- NOTE | 2019-10-28 07:15 | NUR ---
Received report from John BELLE. Patient intubated and sedated and paralyzed. He has 8.0 ET and is 26 cm at lips with vent settings AC 20, TV 450, FiO2 100% and sats 96% and reduced to 80% FiO2 and did oral care and placed 1.5 cc of air in balloon and sats came up and decreased FiO2 again to 60% and current sats are 93%. He has PICC line to MARTA dressing intact and site WNL's and is infusing Propofol at 45 mcg/kg/min, Nimbex 1.5 mcg/kg/min, and NS TKO , [place]. He has Temp hutchins draining to gravity clear yellow urine with temp of 98.6. He has BIZ monitor reading 48 and a train of four of 2. He has OG and in infusing Vital High Protein at 15ml/hr at goal rate with 30 mlQ4 water flushes and no residuals. He is a right AKA. Restraints remain off while useing paralytics. He has wound dressing replaced last night intact C/D on left ankle. VSS See EMR.
--- NOTE | 2019-10-28 09:31 | NUR ---
Vent setting changes over last few hours are AC 20, TV 450, FiO2 60% and PEEP 10.0 and sats low 90%'s. OG for am meds and no residuals. No changes in propofol and Nimbex. Notified RT of changes.
--- NOTE | 2019-10-28 11:30 | NUR ---
Just returned from chest CT. VSS, See EMR.increased patient to 100% FiO2 for trip and he tolerated well.. No other changes in gtt's. Patient continues to have good urine output.
--- NOTE | 2019-10-28 13:13 | NUR ---
Dr Muro brogenesis'd patient and did some mucus wash. During broch needed to bag patient and about 10 minutes after Bronch bagged patient for about 10 minutes until in the 90%'s and place back on vent with new settings of AC 20, TV 500, FiO2 100% and PEEP 15.0 and sats 94%. VSS See EMR
--- NOTE | 2019-10-28 13:55 | NUR ---
Increased Propofol to 60 mcg/kg/min and stopped Nimbex as per Dr Muro request. Patient resting and sedated. Also medicated 20 mg Labatelol for systolic 160's.
--- NOTE | 2019-10-28 16:53 | NUR ---
No significant changes. Vent settings AC 20, TV 450, FiO2 60%, PEEP 10, sats low 90%'s. Nimbex remains off and Propofol at 60 mcg/kg/min. He is withdrawing when doing oralor eye care. VSS, See EMR. Britney to have good outout.
--- NOTE | 2019-10-28 19:19 | NUR ---
ASSUMED PT CARE WITH BARBRA MAYORGA FROM BARBRA VELARDE AT 1900 PT INTUBATED/SEDATED. PROPROFOL 60MCG/KG/MIN. PT IS UNRESPONSIVE. VENT SETTINGS: AC 20, TV 450, FIO2 60%, PEEP 10. BIOX LOW 90'S. VITAL HIGH PROTEIN INFUSING AT GOAL OF 15MLS/HR; WATER FLUSHES 30ML Q4 HOURS. GAYTAN CATHETER THAT IS PATENT AND DRAINING TO GRAVITY; CLEAR, YELLOW URINE. SOFT RESTRAINTS BILATERAL WRISTS. WILL CONTINUE TO MONITOR.
--- NOTE | 2019-10-29 01:46 | NUR ---
SEDATION VACATION STARTED SHIFT WITH PROPOFOL AT 60MCG/KG/MIN; ABLE TO TITRATE DOWN TO 25MCG/KG/MIN. PT ABLE TO OPEN EYES TO VERBAL STIMULI, FOLLOW COMMANDS BY SQUEEZING HANDS UPON COMMAND. PT ABLE TO SHAKE HEAD YES/NO TO QUESTIONS. MOVING EXTREMITIES SPONTANEOUSLY. BILATERAL WRISTS REMAIN IN RESTRAINTS. STARTED TITRATING PROPOFOL DOWN AROUND 2300. RESTARTED PROPOFOL AFTER SEDATION VACATION WAS PERFORMED PROPOFOL WAS TURNED BACK TO 35MCG/KG/MIN AROUND 0050. PT REQUIRED INCREASED PROPOFOL NEEDS, UP TO 55MCG/KG/MIN, D/T RESTLESSNESS, AGITATION, BEATING ON SIDERAILS, AND DROPPING LEG OVER THE SIDE OF THE BED. MEDICATED WITH PRN FENTANYL 50MCG PER ORDERS WITH NO EFFECT. MEDICATED WITH 2MG OF ATIVAN PER ORDERS THAT WAS EFFECTIVE. ABLE TO TITRATE PROPOFOL BACK DOWN TO 40MCG/KG/MIN. PT APPEARS ADEQUATELY SEDATED AND COMFORTABLE AT THIS TIME.
[2019-10-29 04:03] LABS: Anion Gap 4 mmol/L (6-16); Blood Urea Nitrogen 31 mg/dL (8-24); Bun/Creatinine Ratio 28.4 (12.0-20.0); CO2, Blood 35 mmol/L (21-32); Calcium, Blood 7.6 mg/dL (8.5-10.1); Chloride, Blood 105 mmol/L (98-108); Creatinine, Blood 1.09 mg/dL (0.60-1.20); Glomerular Filtration Rate >60 (60-); Glucose, Blood 89 mg/dL (70-99); Magnesium, Blood 2.6 mg/dL (1.6-2.4); Phosphorus, Blood 4.1 mg/dL (2.5-4.9); Potassium, Blood 3.5 mmol/L (3.5-5.5); Sodium, Blood 144 mmol/L (136-145)
--- NOTE | 2019-10-29 05:48 | NUR ---
END OF SHIFT SUMMARY PT REMAINS INTUBATED/SEDATED. VENT AC 20, TV 450, PEEP 12, FIO2 85%; BIOX LOW 90'S. GOAL 87% OR GREATER. PROPOFOL 40MCG/KG/MIN INFUSING VIA PICC TO RIGHT UPPER EXTREMITY. SEE PREVIOUS NOTE ABOUT SEDATION VACATION. TUBE FEEDING REMAINS AT 15MLS/HR, VITAL HIGH PROTIEN, <100MLS RESIDUALS. GAYTAN CATHETER REMAINS PATENT AND DRAINING TO GRAVITY; CLEAR, YELLOW. DRESSING WAS CHANGED TO LLE. PT SOFT BILATERAL WRIST RESTRAINTS. WILL CONTINUE TO MONITOR UNTIL REPORT IS HANDED OFF TO ONCOMING RN.
--- NOTE | 2019-10-29 06:14 | NUR ---
STUDENT NURSE NOTE REVIEW I REVIEWED AND CONCUR WITH BOTH ASSUMED PT CARE NOTE AND END OF SHIFT SUMMARY NOTES THAT WERE ENTERED BY STUDENT NURSE FOR THIS SHIFT.
--- NOTE | 2019-10-29 07:00 | NUR ---
REC'D BEDSIDE REPORT FROM TIERRA, BARBRA AND RN STUDENT. CHECKED ALL VITAL GTTS AT THIS TIME.
--- NOTE | 2019-10-29 07:45 | NUR ---
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
--- NOTE | 2019-10-29 09:15 | NUR ---
DR DO HERE TO ASSESS PT. DISCUSSED CONTINUED EYE CRUSTING/ERYTHEMA. DISCUSSED INCREASING TUBE FEEDS NOW THAT PT IS OFF NIMBEX, AND IONIZED CA, SERUM LEVEL IS LOW AND NOC RN NOTED FACIAL TWITCHING T/O SHIFT. ALSO, DISCUSSED ADDING BOWEL CARE, PT HAS NOT HAD A BM FOR SEVERAL DAYS.
--- NOTE | 2019-10-29 09:43 | NUR ---
SPOKE WITH BARBRA DIEHL FROM [facility] RE: PT'S STATUS/PLAN OF CARE/FAMILY DISCUSSIONS/DECISIONS.
--- NOTE | 2019-10-29 09:45 | NUR ---
CALLED AND LEFT MESSAGE WITH DR MIMS RE: PT'S F/U H+H.
[2019-10-29 12:39] LABS: Vancomycin, Trough 16.4 ug/mL (5.0-10.0)
--- NOTE | 2019-10-29 13:02 | NUR ---
SEDATION VACATION: PT AWOKE AFTER APPROXIMATELY 10 MINUTES WITH PROPOFOL ON STANDBY. PT ATTEMPTED TO OPEN EYES BUT WAS UNABLE TO. WEAK EARRING MAKER BILATERALLY. PT ABLE TO ANSWER VERY SIMPLE YES/NO QUESTIONS. SHAKES HEAD WHEN ASKED IF HE HAS PAIN. PT RESEDATED AFTER NEURO'S CHECKED WITH PROPOFOL AT REDUCED RATE OF 45MCG/KG/MIN. DR JULIAN IN TO REASSESS, FI02 DECREASED TO 70% SPO2-98% AT THIS TIME AFTER REPOSITIONING AND SEDATION VACATION. PT DOES SEEM TO PREFER HIS LT SIDE, HE DESATS AND DOES NOT BREATH DEEP WHEN TURNED TO THE RT.
--- NOTE | 2019-10-29 13:15 | NUR ---
CALLED DR JULIAN TO DISCUSS LOW IONIZED CA. WILL GIVE 2GM OF CA GLUCONATE.
--- NOTE | 2019-10-29 18:35 | NUR ---
SHIFT SUMMARY: PT REMAINS INTUBATED AND SEDATED ON PROPOFOL CURRENTLY AT 55MCG/KG/MIN. BILATERALLY WRIST RESTRAINTS ON FOR SAFETY OF VITAL LINES. EYES CONTINUE TO BE RED WITH CONTINUOUS WHITISH DISCHARGE, DR AWARE. LUNGS ARE CLEAR BUT DIMINISHED T/O BILATERALLY, ESPECIALLY IN THE RT LL. VENT SETTINGS CURRENTLY AC: 20/TV 450/ P-14/ FI02-70%. PT DOES NOT SEEM TO TOLERATE THE RT SIDE LYING POSITION WELL AND DOES NOT HAVE GOOD OF O2 LEVELS WHEN LAYING ON THIS SIDE. HR REGULAR, SR-70-80'S RANGE. PICC IN RT UA W/ NS @ TKO. PT REC'D CALCIUM GLUCONATE R/T LOW CA LEVEL. ABD LARGE/ROUND/NO GRIMACE TO PALPATION. BT'S REMAIN SOMEWHAT HYPOACTIVE WITH TUBE FEEDINGS OF VHP AT GOAL RATE OF 20ML/HR PER OGT. RESIDUALS 50-70ML. NO BM TODAY. PT STARTING BOWEL CARE PROTOCOL TODAY. GAYTAN TEMP PROBE DRAINING, CLEAR, DARK YELLOW URINE TO GRAVITY. -DNR STATUS -CBG'S Q6HR -DROPLET ISOLATION FOR MRSA IN THE SPUTUM
--- NOTE | 2019-10-29 20:00 | NUR ---
ASSUMED PT CARE FROM BARBRA SNYDER AT 1915 PT REMAINS INTUBATED/SEDATED. PICC TO RUE WITH PROPOFOLINFUSING AT 55MCG/KG/MIN. VENT SETTINGS AC 20, TV 450, PEEP 12, FIO2 60%; RESP RATE 20; BIOX LOW TO MID 90'S. GOAL IS TO MAINTAIN OXYGEN SATURATION GREATER THAN OR EQUAL TO 87%. PT APPEARS TO BE NSR WITH HR 70'S; BP'S STABLE, SEE FLOWSHEET. VITAL HIGH PROTEIN INFUSING AT GOAL OF 20MLS/HR. TEMP GAYTAN PROBE IN PLACE; PATENT AND DRAINING DARK, KRISTINE COLORED URINE TO GRAVITY. PT CONTINUES ON LASIX 40MG IVP Q8HRS. STARTED TITRATING PROPOFOL DOWN FOR SEDATION VACATION UPON ASSUMPTION OF CARE. WILL CONTINUE TO MONITOR.
--- NOTE | 2019-10-29 20:01 | NUR ---
SEDATION VACATION TITRATED PROPOFOL DOWN TO 25MCG/KG/MIN. PT ABLE TO OPEN EYES SPONTANEOUSLY AND TRACK ADEQUATELY. FOLLOWED COMMANDS BY SQUEEZING HANDS. ABLE TO SHAKE HEAD YES/NO TO QUESTIONS. MOVES ALL EXTREMITIES ADEQUATELY. REMAINS IN BILATERAL WRIST RESTRAINTS. EXPLAINED TO PT THAT HE IS IN THE ICU D/T RESPIRATORY FAILURE AND IS ON THE VENTILATOR D/T HIM NOT BEING ABLE TO BREATHE ON HIS OWN. EXPLAINED TO HIM THE REASON FOR RESTRAINTS, WELL THAT HIS FAMILY HAS BEEN CALLING ASKING FOR UPDATES. PT PLACED BACK ON 35MCG/KG/MIN OF PROPOFOL. HOWEVER, PT SHORTLY BECAME AGITATED. THRASHING HEAD BACK AND FORTH IN BED AND PULLING AGAINST RESTRAINTS. MEDICATED WITH ATIVAN 2MG IVP PER ORDERS AND INCREASED PROPOFOL TO 45MCG/KG/MIN. PT APPEARS COMFORTABLY SEDATED AT THIS TIME.
[2019-10-30 04:17] LABS: Hematocrit 39.3 % (37.0-53.0); Mean Corpuscular HGB 26.5 pg (26.0-34.0); Mean Corpuscular HGB Conc 30.5 g/dL (31.5-36.5); Mean Corpuscular Volume 87 fL (80-100); Platelet Count 210 K/mm3 (150-400); RDW Coefficient Variation 17.5 % (11.7-14.2); Red Blood Cell Count 4.52 M/mm3 (4.30-5.90)
[2019-10-30 04:32] LABS: Anion Gap 3 mmol/L (6-16); Blood Urea Nitrogen 28 mg/dL (8-24); Bun/Creatinine Ratio 30.1 (12.0-20.0); CO2, Blood 37 mmol/L (21-32); Calcium, Blood 7.9 mg/dL (8.5-10.1); Chloride, Blood 105 mmol/L (98-108); Creatinine, Blood 0.93 mg/dL (0.60-1.20); Glomerular Filtration Rate >60 (60-); Glucose, Blood 91 mg/dL (70-99); Potassium, Blood 3.1 mmol/L (3.5-5.5); Sodium, Blood 145 mmol/L (136-145)
--- NOTE | 2019-10-30 05:07 | NUR ---
END OF SHIFT SUMMARY NO SIGNIFICANT CHANGES SINCE LAST ENTRY. PT REMAINS INTUBATED/SEDATED. PROPOFOL INFUSING VIA RUE PICC AT 45MCG/KG/MIN. PT HAS REQUIRED ATIVAN 2MG IVP X2 THIS SHIFT FOR ADJUNCT SEDATION, WHICH HAS BEEN EFFECTIVE. VENT SETTINGS: AC 20, TV 450, PEEP 10, FIO2 60%; BIOX MAINTAINING LOW TO MID 90'S. VITAL HIGH PROTEIN CONTINUES TO INFUSE AT GOAL OF 20MLS/HR WITH 30CC WATER FLUSHES Q4 HOURS. GAYTAN CATHETER IS PATENT AND DRAINING DARK, KRISTINE COLORED URINE WITH A TINT OF GREEN TO GRAVITY. PT CONTINUES TO RECEIVE LASIX 40MG IVP Q8 HOURS WITH GOOD URINE OUTPUT. DRESSING CHANGED TO LLE; DRESSING IS CDI. REFER TO SEDATION VACATION NOTE FOR FOCUSED NEURO ASSESSMENT. WILL CONTINUE TO MONITOR UNTIL REPORT IS HANDED OFF TO ONCOMING RN.
[2019-10-30 05:23] LABS: BASOPHILS PERCENT MAN 0 % (0-2); EOSINOPHILS ABSOLUTE MAN 0.34 K/mm3 (0.00-0.68); EOSINOPHILS PERCENT MAN 3 % (0-6); LYMPHOCYTES ABSOLUTE MAN 1.03 K/mm3 (0.84-5.20); LYMPHOCYTES PERCENT MAN 9 % (21-46); MONOCYTES ABSOLUTE MAN 0.46 K/mm3 (0.16-1.47); MONOCYTES PERCENT MAN 4 % (4-13); NEUTROPHILS ABSOLUTE MAN 9.66 K/mm3 (1.96-9.15); SEG NEUTROPHILS PERCENT MAN 84 % (41-73); TOTAL CELLS COUNTED 100
--- NOTE | 2019-10-30 07:58 | NUR ---
[place] of Care: Care assumed at 0700hr. Patient intubated and sedated with propofol gtt at 45mcg/kg/min. Vent to AC-20/450/10/60%, spO2-97%, tolerating vent mode without difficulty. Patient responds to noxious and painful stimuli, withdraws extremities, but not following any commands. TF per OG tube is Vital HP at goal rate of 20ml/hr, with 30ml H2O flush q4hr, no s/s of GI intolerance, will assess residual this morning and q4hr. PICC line to MARTA patent and intact, infusing without difficulty. Tan cath patent and intact, draining dark yellow clear urine. Appears calm and comfortable. Will continue to monitor.
--- NOTE | 2019-10-30 18:40 | NUR ---
Shift Summary: No significant changes throughout shift. Vent remains to AC 20/450/10, FiO2 decreased to 50% throughout shift. Tolerated FiO2 of 40% for approx 2hr, before spO2 decreased to 86-87%. Sedation vacation for approx 1-2hr today. Patient restless at times, thrashing in bed, but able to verbally re-direct patient. Patient followed simple commands when awake, denied pain/discomfort. Propofol gtt re-strated at 25mcg/kg/min, this dose along with x2 prn Ativan effective to keep patient calm/comfortable throughout remainder of shift. Tan cath remains patent and intact, draining dark, green tinged urine. PICC line remains patent and intact, infusing without difficulty. Appears calm and comfortable at this time. Will continue to monitor until report to NOC shift RN.
--- NOTE | 2019-10-30 20:00 | NUR ---
ASSUMPTION OF CARE: PT INTUBATED AND SEDATED WITH PROPOFOL. TEMP GAYTAN IN PLACE. FEBRILE WITH A TEMP OF 100.0. IN SR, HR 70-90S, SBP STABLE IN THE 110-140S. LUNG SOUNDS ARE COARSE T/O. VENT SETTINGS ARE AC 20/450/10/50%. SPO2 >90%. PT DOES HAVE AN OCC COUGH WITH THICK SECRETIONS. PICC TO MARTA INFUSING WITH PROPOFOL AT 25MCG. OG TUBE IN PLACE WITH CONTINUOUS TF AT GOAL OF 20MLS/HR. GAYTAN IN PLACE DRAINING DARK YELLOW/GREEN URINE. PT HAS R AKA. LLE IS SCALY AND DARK BROWN. MULTIPLE TATTOOS T/O BODY. PT HAS SOME SCROTAL EDEMA. AT BEGINNING OF SHIFT PT BECAME AGITATED, FIGHTING AGAINST RESTRAINTS, AND ATTEMPTING TO SIT UP. ATIVAN PRN GIVEN AND PROPOFOL TURNED UP TO 35MCG. PT IS CURRENTLY RESTING COMFORTABLY. WILL CONTINUE TO MONITOR
[2019-10-31 04:41] LABS: BASOPHILS ABSOLUTE AUTO 0.02 K/mm3 (0.00-0.23); BASOPHILS PERCENT AUTO 0 % (0-2); EOSINOPHILS ABSOLUTE AUTO 0.37 K/mm3 (0.00-0.68); EOSINOPHILS PERCENT AUTO 4 % (0-6); Hematocrit 37.8 % (37.0-53.0); Hemoglobin 11.4 g/dL (13.5-17.5); IMMATURE GRAN ABSOLUTE AUTO 0.02 K/mm3 (0.00-0.10); IMMATURE GRAN PERCENT AUTO 0 % (0-1); LYMPHOCYTES ABSOLUTE AUTO 1.27 K/mm3 (0.84-5.20); LYMPHOCYTES PERCENT AUTO 14 % (21-46); MONOCYTES ABSOLUTE AUTO 0.41 K/mm3 (0.16-1.47); MONOCYTES PERCENT AUTO 5 % (4-13); Mean Corpuscular HGB 26.4 pg (26.0-34.0); Mean Corpuscular HGB Conc 30.2 g/dL (31.5-36.5); Mean Corpuscular Volume 88 fL (80-100); Mean Platelet Volume 9.9 fL (9.1-12.4); NEUTROPHILS ABSOLUTE AUTO 6.74 K/mm3 (1.96-9.15); NEUTROPHILS PERCENT AUTO 76 % (41-73); Platelet Count 213 K/mm3 (150-400); RDW Coefficient Variation 17.2 % (11.7-14.2); RDW Standard Deviation 55.4 fL (35.1-46.3); Red Blood Cell Count 4.32 M/mm3 (4.30-5.90); White Blood Cell Count 8.83 K/mm3 (4.00-11.30)
[2019-10-31 04:57] LABS: Anion Gap 5 mmol/L (6-16); Blood Urea Nitrogen 21 mg/dL (8-24); Bun/Creatinine Ratio 26.9 (12.0-20.0); CO2, Blood 32 mmol/L (21-32); Chloride, Blood 108 mmol/L (98-108); Creatinine, Blood 0.78 mg/dL (0.60-1.20); Glomerular Filtration Rate >60 (60-); Glucose, Blood 88 mg/dL (70-99); Magnesium, Blood 2.5 mg/dL (1.6-2.4); Potassium, Blood 3.3 mmol/L (3.5-5.5); Sodium, Blood 145 mmol/L (136-145)
--- NOTE | 2019-10-31 06:16 | NUR ---
SHIFT SUMMARY: NO ACUTE CHANGES T/O SHIFT. VSS. PT HAD A COUPLE OF EPISODES OF AGITATION/PULLING AT RESTRAINTS/ATTEMPTING TO SIT UP IN BED. PRN ATIVAN GIVEN X 2 WITH GOOD EFFECT. PICC IN MARTA INFUSING WITH PROPOFOL AT 35MCG AND NS TKO. WILL PASS REPORT TO ONCOMING SHIFT
--- NOTE | 2019-10-31 07:57 | NUR ---
[place] of Care: Care assumed at 0700hr. Patient remains intubated/sedated. Vent to AC 20/450/10/40% at shift change, spO2-94%. RT Mariana then decreased PEEP to 8 at approx 0745hr, SpO2 remains 93-94%, tolerating vent without difficulty. Propofol gtt at 35mcg/kg/min at shift change, patient responds to noxious stimuli, but difficult to rouse, propofol gtt decreased to 25mcg/kg/min. Tan cath patent and intact, draining dark, green tinged urine. PICC line to rt upper arm patent and intact, infusing without difficulty. TF is Vital HP at goal rate of 20ml/hr with 60ml H2O q4hr, no s/s of GI intolerance, will assess residuals before giving scheduled PT medications this morning. Bilateral soft wrist restraints in place to protect lines, tubes, cords. Will continue to monitor.
[2019-10-31 12:03] LABS: Vancomycin, Trough 14.4 ug/mL (5.0-10.0)
--- NOTE | 2019-10-31 18:37 | NUR ---
Shift Summary: No significant changes throughout shift. Vent settings decreased to PEEP of 8, FiO2-40% this morning, now AC- 20/450/8/40%, throughout shift. SpO2-89-93%, tolerated vent without difficulty. Tan cath remains patent and intact, draining dark yellow/green tinged urine. TF per OG tube increased to goal of 30ml/hr this shift per dietary orders, residual 0-25ml, no s/s of GI intolerance. PICC line to rt upper arm remains patent and intact, infusing without difficulty. Continues to have thick yellow secretions from ET tube, requires NS lavage at times to remove secretions. Sedation vacation for approx 1-2hr this shift. Patient again restless at times, but able to be verbally re-directed. Patient able to rouse to verbal stimuli and follow commands. Patient's mother and father in to see patient today for approx 30-45min. Patient's parents expressed concerned for the patient being removed from the ventilator and allowed to pass (comfort measures). This nurse explained that it was highly unlikely that the patient would be removed from the ventilator r/t how much he has improved over the last several days. This nurse also explained that staff and Dr. Viera were awaiting the arrival of the patient's son (Narayan and next of kin), to discuss patient's condition and plan of care. This nurse also expressed that there concerns were understood, but staff needs to respect the patient's and Narayan's decision. Patient's son (Narayan) and brother (Niels) in to see patient approx 1hr after his parents left his room. Narayan first spoke with Dr. Viera, and decision made to give the patient more time to improve and not switcth to comfort measures at this time. Narayan able to be at patient's bedside for appox 1hr while patient was on sedation vacation. This spoke with patient about plan of care with Narayan at bedside. Patient nodded head "yes" with continuing mechanical ventilation at this time.
--- NOTE | 2019-11-01 06:13 | NUR ---
SHIFT SUMMARY: NO ACUTE CHANGES T/O SHIFT. VSS. VENT SETTINGS ARE 20/450/PEEP 8/FIO2 45%. LUNG SOUNDS ARE WHEEZY, WERE CLEAR AT BEGINNING OF SHIFT. NO BM THIS SHIFT. GAYTAN DRAINING DARK YELLOW URINE. PROPOFOL INFUSING THRU PICC AT 30MCG AND PRECEDEX AT 0.4 MCG. PT SLEPT MAJORITY OF SHIFT. HOWEVER HE DID HAVE AND EPISODE OF AGITATION, PULLING HARD AT RESTRAINTS, SHAKING HEAD BACK AND FORTH, COUGHING AND FIGHTING VENT. PT WAS ABLE TO OPEN EYES AND ANSWER A FEW QUESTIONS. I ASKED PT IF HE WAS IN PAIN AND HE SHOOK HIS HEAD YES. ASKED IF HE KNEW WHERE HE WAS HE SHOOK HIS HEAD NO. PRN FENTANYL GIVEN. PT IS CURRENTLY RESTING COMFORTABLY, TOLERATING VENT AND RESTRAINTS WELL. WILL PASS REPORT TO ONCOMING SHIFT
--- NOTE | 2019-11-01 07:25 | NUR ---
Fannin of Care: Care assumed at 0700hr. Patient intubated and sedated. Responds to painful and noxious stimuli, but not difficult to rouse, not following commands. Precedex gtt decreased from 0.4 to 0.2mcg/kg/hr, propofol gtt decreased from 30 to 25mcg/kg/min. Vent to AC 20/450/8/40%, SpO2-95-97%, tolerating vent without difficulty. TF per OG at goal rate of 30ml/hr with 60ml H2O flush q4hr, will assess residual this morning and q4hr, no s/s of GI intolerance. PICC line to rt upper arm patent and intact, infusing without difficulty. Tan cath patent and intact, draining clear yellow urine. Bilateral soft wrist restraints in place to protect lines, tubes, cords. Will continue to monitor.
[2019-11-01 09:42] LABS: Anion Gap 6 mmol/L (6-16); Blood Urea Nitrogen 25 mg/dL (8-24); Bun/Creatinine Ratio 29.6 (12.0-20.0); CO2, Blood 30 mmol/L (21-32); Calcium, Blood 8.6 mg/dL (8.5-10.1); Chloride, Blood 109 mmol/L (98-108); Creatinine, Blood 0.84 mg/dL (0.60-1.20); Glomerular Filtration Rate >60 (60-); Glucose, Blood 111 mg/dL (70-99); Magnesium, Blood 2.3 mg/dL (1.6-2.4); Potassium, Blood 3.7 mmol/L (3.5-5.5); Sodium, Blood 145 mmol/L (136-145)
[2019-11-01 12:51] LABS: Vancomycin, Trough 19.7 ug/mL (5.0-10.0)
--- NOTE | 2019-11-01 17:48 | NUR ---
Shift Summary: No significant changes throughout shift. Vent remains to AC 20/450/8, FiO2 at 40% throughout most of shift but had to be titrated up to 65% this morning following turn to lt side. FiO2 titrated back down to 40% over several hours, SpO2-88-95%. Sedation decreased this morning, patient able to follow simple commands (nod head, squeeze hands) when awake. Patient also became restless and agitated, thrashing in bed and reaching for ETT. Unable to verbally re-direct patient, but prn Ativan effective. Propofol gtt also increased to 30mcg/kg/min. Continues to have thick yellow secretions, but far less amount compared to yesterday. PICC line to MARTA remains patent and intact, infusing without difficulty. Tan remains patent and intact, draining clear yellow urine, no longer green tinged. Appears calm and cooperative at this time. Will continue to monitor until report to NOC shift RN.
--- NOTE | 2019-11-01 19:20 | NUR ---
ASSUMED CARE OF PT, BEDSIDE REPORT RECEIVED. PT IS RESTING QUIETLY, SEDATED WITH PROPOFOL 30 MCG/KG/MIN AND PRECEDEX 0.3 MCG/KG/HR, HE IS AROUSABLE TO VERBAL AND TOUCH STIMULI AND APPEARS TO RETURN TO SLEEP WITH REMOVAL OF INCREASED STIMULATION, NO RESTLESSNESS/AGITATION IS NOTED AT THIS TIME, TOLERATING VENT WELL. RT AT BEDSIDE FOR COMPLETION OF CPT, LUNGS ARE CLEAR THROUGHOUT WITH DIM BASES BILAT, ETT 8.0 26 CM AT LIP, RESP RATE 20-22 AT THIS TIME, SATS MID 90S, VENT SETTINGS AC 20, TV 450, FIO2 35% AND PEEP 8. HRR, SINUS ON MONITOR, RATE 60S, PRESSURES MAINTAINING, PULSES FAINT, EDEMA TO LEFT LOWER EXTREMITY, MODERATE. MODERATE EDEMA TO HANDS, SCROTAL EDEMA NOTED, SKIN PWD. ABD DISTENDED, HYPOACTIVE BOWEL TONES ARE NOTED, VITAL HIGH PROTEIN AT GOAL OF 45 ML/HR WITH 60 ML WATER FLUSH EVERY 4 HOURS, RESIDUAL AT THIS TIME IS 215 ML HOWEVER WATER FLUSH WITHIN THE LAST HOUR IS NOTED, WILL REASSESS RESIDUAL IN 1 HOUR, NO TENDERNESS IS NOTED WITH PALPATION. TEMP PROBE GAYTAN IN PLACE DRAINING CLEAR DARK YELLOW URINE TO GRAVITY. PICC TO RIGHT UPPER ARM, DRESSING CDI, SITE WNL. MEPILEX DRESSING IN PLACE TO LEFT LATERAL CALF, CLEAN DRY AND INTACT AT THIS TIME.
--- NOTE | 2019-11-02 06:29 | NUR ---
PT REMAINS SEDATED AND INTUBATED, AROUSABLE TO VERBAL STIMULI. VENT SETTINGS CONTINUE AC 20, TV 450, PEEP 8, FIO2 TITRATED UP TO 65% WITH POSITION CHANGES TO PT'S RIGHT SIDE PT IS NOTED TO HAVE SATS DECREASED TO 85-87%, RATE 20-22 THROUGHOUT NOC, LUNGS REMAIN CLEAR WITH DIM BASES BILAT, ETT SUCTION PRODUCTIVE OF SMALL AMOUNTS OF THICK WHITE/YELLOW SPUTUM. HRR, SINUS CONTINUES, PRESSURES MAINTAIN, PT WAS NOTED TO HAVE INTERMITTENT DECREASED SPB TO 90S HOWEVER RECOVER WITHOUT INTERVENTION TO 110S. HYPOACTIVE BOWEL TONES CONTINUE RESIDUALS DECREASED THROUGHOUT NOC TO 40 AT LAST CHECK, SMALL HARD BOWEL MOVEMENT JUST AFTER BEDBATH, PASSING FLATUS WELL, VITAL HIGH PROTEIN TUBE FEEDS CONTINUE AT GOAL RATE OF 45 ML/HR WITH WATER 60 ML EVERY 4 HOURS. GAYTAN REMAINS, DRAINING CLEAR DARK YELLOW URINE TO GRAVITY.
--- NOTE | 2019-11-02 07:15 | NUR ---
BEGINNING OF SHIFT Assumed care of pt at 0700. Report received from Paige BELLE. Pt sedated with propofol at 35 mcg/kg/min and precedex 0.3 mcg/kg/hr. Pt responsive to verbal stimulus. Cough and gag reflexes present. Pt mechanically ventilated with 8.0 cm ETT, 26 cm KOURTNEY. Vent settings AC 20/450/8/65%. SpO2 87% or greater. Lungs clear with dim bases. Large amounts of thin, yellow, sputum suctioned from ETT. TF through OG tube per orders. Temp hutchins in place.
--- NOTE | 2019-11-02 08:00 | NUR ---
20 mL RESIDUAL MEASURED FROM OG TUBE
--- NOTE | 2019-11-02 09:00 | NUR ---
SEDATION VACATION / FAMILY PHONE CALL Propofol turned off. Precedex remained at 0.3 mcg/kg/hr. Pt responsive to verbal stimulus. Jeep Mechanic this RN's hands when instructed to do so. Nods head to indicate yes or no. Per family request, in room phone held up to pt's ear so they could talk to him. Family verbalized understanding that intubation prevents pt from being able to speak back. Pt nodded head and became tearful while his mother was speaking to him on the phone. After about 1 minute, pt started coughing. Phone call ended. Sedation restrated. Propofol at 35 mcg/kg/min.
--- NOTE | 2019-11-02 09:45 | NUR ---
DR CHOUDHARY IN ROOM TO SEE PT No new orders at this time.
[2019-11-02 11:20] LABS: BASOPHILS ABSOLUTE AUTO 0.02 K/mm3 (0.00-0.23); BASOPHILS PERCENT AUTO 0 % (0-2); EOSINOPHILS ABSOLUTE AUTO 0.34 K/mm3 (0.00-0.68); EOSINOPHILS PERCENT AUTO 5 % (0-6); Hematocrit 39.9 % (37.0-53.0); Hemoglobin 11.9 g/dL (13.5-17.5); IMMATURE GRAN ABSOLUTE AUTO 0.04 K/mm3 (0.00-0.10); IMMATURE GRAN PERCENT AUTO 1 % (0-1); LYMPHOCYTES PERCENT AUTO 13 % (21-46); MONOCYTES ABSOLUTE AUTO 0.41 K/mm3 (0.16-1.47); MONOCYTES PERCENT AUTO 6 % (4-13); Mean Corpuscular HGB Conc 29.8 g/dL (31.5-36.5); Mean Corpuscular Volume 87 fL (80-100); Mean Platelet Volume 9.8 fL (9.1-12.4); NEUTROPHILS ABSOLUTE AUTO 5.65 K/mm3 (1.96-9.15); NEUTROPHILS PERCENT AUTO 76 % (41-73); Platelet Count 225 K/mm3 (150-400); RDW Coefficient Variation 17.6 % (11.7-14.2); RDW Standard Deviation 55.7 fL (35.1-46.3); Red Blood Cell Count 4.58 M/mm3 (4.30-5.90); White Blood Cell Count 7.46 K/mm3 (4.00-11.30)
[2019-11-02 11:32] LABS: Albumin, Blood 2.5 g/dL (3.4-5.0); Anion Gap 4 mmol/L (6-16); Blood Urea Nitrogen 32 mg/dL (8-24); Bun/Creatinine Ratio 33.8 (12.0-20.0); CO2, Blood 32 mmol/L (21-32); Calcium, Blood 8.2 mg/dL (8.5-10.1); Chloride, Blood 110 mmol/L (98-108); Creatinine, Blood 0.95 mg/dL (0.60-1.20); Glomerular Filtration Rate >60 (60-); Glucose, Blood 102 mg/dL (70-99); Phosphorus, Blood 4.5 mg/dL (2.5-4.9); Potassium, Blood 3.6 mmol/L (3.5-5.5); Sodium, Blood 146 mmol/L (136-145)
[2019-11-02 12:15] LABS: TOTAL CELLS COUNTED 2
--- NOTE | 2019-11-02 14:00 | NUR ---
UPDATE At this time, pt resting in bed with propofol 40 mcg/kg/min and precedex 0.6 mcg/kg/hr. Vent settings AC 20/450/10/50%. SpO2 90% or greater. During bed bath, PICC line quit working. On assessment, line was kinked underneath dressing. Dressing removed. 3 cm of line immediately pushed out from insertion site. PICC nurse, Adam, at bedside. Line repositioned. Dressing placed with guidance from PICC RN due to positional difficulties. Line patent and flushing well. Dr Holman notified of change in PICC positioning. Xray ordered for line placement. Xray reviewed by Dr Holman. Line is in good positioning per provider.
--- NOTE | 2019-11-02 18:03 | NUR ---
SUMMARY Pt remains on 40 mcg/kg/min propofol and 0.6 mcg/kg/hr precedex. Pt required an increase in sedation this shift as pt was repeatedly having episodes of aggressive coughing. This afternoon, pt has not had any more of these episodes. Will consider titrating sedation down. Vent settings AC 20/450/10/50%. No BM this shift. All residuals measured from OG tube are less than 125 mL. Water flushes increased per orders from Dr Holman due to hypernatremia. Pt had excellent urine output from hutchins this shift. No BM. PICC line 7 cm exposed. Will continue to closely monitor until care handoff and bedside report with oncoming RN.
--- NOTE | 2019-11-02 20:58 | NUR ---
PATIENT REMAINS INTUBATED AND SEDATED. VENT SET AT AC 20, TV 450, PEEP 10, FIO2 HAS BEEN TITRATED UP TO 65% SUCTIONING FEW YELLOW PLUGS AFTER VEST CPT. FEVER WITH TEMP 100.9 TYLENOL GIVEN PER OG. TUBE FEEDING AT GOAL RATE OF 45 CC/HR WITH 100 CC OF WATER Q 4 HR. FOR SEDATION PROPOFOL AT 40 MCG, AND PRECEDEX AT 0.5 MCG, PATIENT AWAKENS EASILY TO SLIGHT STIMULI, COUGHING AND REACHING FOR ETT. BILAT WRIST RESTRAINTS IN PLACE TO PREVENT ACCIDENTAL EXTUBATION.
[2019-11-02 21:01] LABS: Vancomycin, Trough 22.8 ug/mL (5.0-10.0)
[2019-11-03 04:34] LABS: BASOPHILS ABSOLUTE AUTO 0.02 K/mm3 (0.00-0.23); BASOPHILS PERCENT AUTO 0 % (0-2); EOSINOPHILS ABSOLUTE AUTO 0.28 K/mm3 (0.00-0.68); EOSINOPHILS PERCENT AUTO 4 % (0-6); Hematocrit 40.3 % (37.0-53.0); Hemoglobin 12.1 g/dL (13.5-17.5); IMMATURE GRAN ABSOLUTE AUTO 0.04 K/mm3 (0.00-0.10); IMMATURE GRAN PERCENT AUTO 1 % (0-1); LYMPHOCYTES PERCENT AUTO 21 % (21-46); MONOCYTES ABSOLUTE AUTO 0.45 K/mm3 (0.16-1.47); MONOCYTES PERCENT AUTO 6 % (4-13); Mean Corpuscular HGB 26.2 pg (26.0-34.0); Mean Corpuscular Volume 87 fL (80-100); Mean Platelet Volume 10.5 fL (9.1-12.4); NEUTROPHILS ABSOLUTE AUTO 5.26 K/mm3 (1.96-9.15); NEUTROPHILS PERCENT AUTO 69 % (41-73); Platelet Count 215 K/mm3 (150-400); RDW Coefficient Variation 17.7 % (11.7-14.2); RDW Standard Deviation 55.9 fL (35.1-46.3); Red Blood Cell Count 4.61 M/mm3 (4.30-5.90); White Blood Cell Count 7.65 K/mm3 (4.00-11.30)
[2019-11-03 04:52] LABS: Albumin, Blood 2.6 g/dL (3.4-5.0); Anion Gap 5 mmol/L (6-16); Blood Urea Nitrogen 29 mg/dL (8-24); Bun/Creatinine Ratio 31.3 (12.0-20.0); CO2, Blood 31 mmol/L (21-32); Calcium, Blood 8.4 mg/dL (8.5-10.1); Chloride, Blood 110 mmol/L (98-108); Creatinine, Blood 0.93 mg/dL (0.60-1.20); Glomerular Filtration Rate >60 (60-); Glucose, Blood 113 mg/dL (70-99); Phosphorus, Blood 4.5 mg/dL (2.5-4.9); Potassium, Blood 3.6 mmol/L (3.5-5.5); Sodium, Blood 146 mmol/L (136-145)
--- NOTE | 2019-11-03 05:18 | NUR ---
SUMMARY PATIENT REMAINS INTUBATED AND SEDATED, VENT SET AT AC 20, TV 450, PEEP 10, FIO2 TITRATED T/O NIGHT NOW AT 60% TO KEEP BIOX GREATER THAN 87%. PROPOFOL AND PRECEDEX CONTINUE FOR SEDATION PATIENT MOVING ALL EXTREMITIES, NOT ALWAYS TO DIRECTIONS. TUBE FEEDING CONTINUES VIA OG AT GOAL RATE OF 45 CC/HR WITH 100 CC OF WATER EVERY 4 HR. BILAT WRIST RESTRAINTS CONTINUE TO PREVENT ACCIDENTAL EXTUBATION DUE TO UNPREDICTABLE SEDATION AND BEHAVIOR
--- NOTE | 2019-11-03 06:08 | NUR ---
DURING WEAN, PROPOFOL OFF AND PRECEDEX INFUSING 0.6MCG. PATIENTS EYES OPEN AND TRACKING, MOVING BOTH ARMS AND FOLLOWING SIMPLE DIRECTIONS. NODDING YES AND NO TO SIMPLE QUESTIONS. PATIENT PLACED BACK TO AC AND PROPOFOL RESTARTED.
--- NOTE | 2019-11-03 12:20 | NUR ---
REASSESSMENT PT REMAINS SEDATED AND INTUBATED. SEDATION TITRATED DOWN A LITTLE BIT THROUGHOUT THE MORNING PT TOLERATES. FIO2 TITRATED DOWN THIS MORNING, BUT PT STARTED DESATURATING WHEN TURNED TO HIS L SIDE SO HAD TO BE TURNED BACK UP. LUNGS CLEAR, VERY DIM IN THE BASES. RT GOT SOME THICK SPUTUM OUT AT START OF SHIFT, BUT OTHERWISE MINIMAL SECRETIONS. SR, BP STABLE. TOLERATING TUBE FEEDS WITH LESS THAN 5ML RESIDUAL. PT'S SON GIVEN UPDATE VIA PHONE. CONTINUING TO MONITOR.
--- NOTE | 2019-11-03 13:30 | NUR ---
Pt resting in bed, intubated, and sedated. Pt appears comfortable with no S/S of distress at this time. Reviewed chart and discussed case with Pt's Bedside RN Ailyn. No changes with Pt at this time. Family updated earlier today. Ailyn reports Pt's parents claim Pt would want to be trached if necassary. Pt's son (decision maker) reports Pt would not want to be intubated. Discussed if family dynamics are still a concern regarding Pt being trached versus withdrawing care then ethics consult can be placed. Palliative Care will remain available.
--- NOTE | 2019-11-03 16:47 | NUR ---
SHIFT SUMMARY PT REMAINS SEDATED AND INTUBATED. SEDATION HAD TO BE INCREASED THIS AFTERNOON AFTER PT STARTED WAKING UP MORE AND PULLING ON HIS RESTRAINTS. PT WAS DESATURATING MORE WITH TURNS STAYING IN THE 85-87% RANGE. FIO2 NOW AT 75%. LUNGS REMAIN CLEAR. SMALL AMT OF THICK YELLOW SECRETIONS. RECEIVED CPT TWICE. SR IN THE 60S, BP STABLE. TOLERATING TUBE FEEDS. NO BM, BUT PASSING GAS. GAYTAN WITH OVER 2L OUT. SPOKE WITH PT'S PARENTS THIS AFTERNOON TO PROVIDE UPDATE. ALSO PUT PHONE NEXT TO PT'S EAR SO THEY COULD TALK TO HIM. CONTINUING TO MONITOR.
--- NOTE | 2019-11-03 20:00 | NUR ---
PATIENT REMAINS INTUBATED AND SEDATED WITH VENT SET AT AC 20, TV 450, PEEP 10, FIO2 75%, TO MAINTAIN BIOX GREATER THAN 87% SUCTIONING SMALL AMT OF WHITE PLUGS WITH CLEAR SECRETIONS, AFTER VEST CPT BY RT. PROPOFOL 40 MCG, AND PRECEDEX 0.4 MCG FOR SEDATION, PATIENT OPENS EYES SLIGHTLY WITH ORAL CARE, AND PULLING ON RESTRAINTS WHEN COUGHING. OG IN PLACE WITH TUBE FEEDING AT GOAL RATE OF 45 CC/HR. TYLENOL GIVEN FOR CONTINUED TEMP OF 100.0
[2019-11-04 04:19] LABS: BASOPHILS ABSOLUTE AUTO 0.03 K/mm3 (0.00-0.23); BASOPHILS PERCENT AUTO 0 % (0-2); EOSINOPHILS ABSOLUTE AUTO 0.26 K/mm3 (0.00-0.68); EOSINOPHILS PERCENT AUTO 4 % (0-6); Hematocrit 38.9 % (37.0-53.0); Hemoglobin 11.7 g/dL (13.5-17.5); IMMATURE GRAN ABSOLUTE AUTO 0.03 K/mm3 (0.00-0.10); IMMATURE GRAN PERCENT AUTO 0 % (0-1); LYMPHOCYTES ABSOLUTE AUTO 1.41 K/mm3 (0.84-5.20); LYMPHOCYTES PERCENT AUTO 19 % (21-46); MONOCYTES PERCENT AUTO 5 % (4-13); Mean Corpuscular HGB 26.4 pg (26.0-34.0); Mean Corpuscular HGB Conc 30.1 g/dL (31.5-36.5); Mean Corpuscular Volume 88 fL (80-100); Mean Platelet Volume 10.6 fL (9.1-12.4); NEUTROPHILS ABSOLUTE AUTO 5.38 K/mm3 (1.96-9.15); NEUTROPHILS PERCENT AUTO 72 % (41-73); Platelet Count 215 K/mm3 (150-400); RDW Coefficient Variation 17.7 % (11.7-14.2); RDW Standard Deviation 56.8 fL (35.1-46.3); Red Blood Cell Count 4.43 M/mm3 (4.30-5.90); White Blood Cell Count 7.51 K/mm3 (4.00-11.30)
[2019-11-04 04:35] LABS: Albumin, Blood 2.5 g/dL (3.4-5.0); Anion Gap 3 mmol/L (6-16); Blood Urea Nitrogen 30 mg/dL (8-24); Bun/Creatinine Ratio 32.1 (12.0-20.0); CO2, Blood 31 mmol/L (21-32); Calcium, Blood 8.3 mg/dL (8.5-10.1); Chloride, Blood 111 mmol/L (98-108); Creatinine, Blood 0.94 mg/dL (0.60-1.20); Glomerular Filtration Rate >60 (60-); Glucose, Blood 93 mg/dL (70-99); Phosphorus, Blood 4.5 mg/dL (2.5-4.9); Potassium, Blood 3.8 mmol/L (3.5-5.5); Sodium, Blood 145 mmol/L (136-145)
--- NOTE | 2019-11-04 05:42 | NUR ---
SUMMARY PATIENT REMAINS INTUBATED AND SEDATED, FIO2 TITRATED UP TO 80% DUE TO BIOX DOWN TO 86%. SUCTIONING THIN CLEAR SECRETIONS WITH OCCASIONAL YELLOW PLUGS. SEDATED WITH PROPOFOL 40 MCG, AND PRECEDEX 0.5 MCG, AND OCCASIONAL ATIVAN. TYLENOL GIVEN FOR CONTINUED TEMP OF 100.0. OG IN PLACE WITH TUBE FEEDING AT GOAL RATE OF 45 CC/HR. PATIENT AWAKENS WITH SLIGHT STIMULI, REACHING FOR ETT WHEN AWAKE. BILAT WRIST RESTRAINTS REMAIN IN PLACE.
--- NOTE | 2019-11-04 07:33 | NUR ---
[place] of Care: Care assumed at 0700hr. Patient intubated and sedated. Vent to AC 20/450/10/75%, SpO2- 91-93%, tolerating vent without difficulty. Precedex gtt at 0.5mcg/kg/hr, Propofol gtt at 40mcg/kg/min, patient appears heavily sedated. Not responding to verbal stimuli, but withdrawing to painful stimuli. Propofol gtt decreased to 30mcg/kg/min at this time. PICC line to rt upper arm patent and intact, infusing without difficulty. Tan cath patent and intact, draining clear yellow urine. TF per OG is Vital HP at goal of 45ml/hr, with 100ml H2O flush q4hr. Bowel tones hypoactive, abd soft, no s/s of GI intolerance. Will assess TF residual this morning and q4hr. Bilateral soft wrist restraints in place to protect lines, tubes, cords. Will continue to monitor.
[2019-11-04 12:33] LABS: PO2 Arterial 61.3 mmHg (80-100); pH Blood Arterial 7.41 (7.35-7.45)
[2019-11-04 12:58] LABS: Vancomycin, Trough 15.4 ug/mL (5.0-10.0)
--- NOTE | 2019-11-04 15:27 | NUR ---
Pt resting in bed, sedated, and intubated. Spoke with Bedside RN Justin and discussed case. Justin reports Pt is requiring slightly less FIO2 support but PEEP settings are higher at this time. During Hospitalist meeting this AM Dr Amin suggested weaning Pt before day 14 in order to discuss wishes with Pt regarding trach due to different reports from family members regarding Pt's wishes. Justin agrees with plan and reports no other concerns at this time. Palliative Care will remain available.
--- NOTE | 2019-11-04 19:28 | NUR ---
Shift Summary: No significant changes throughout shift. Dr. Holman changed ventilator from AC to pressure control mode with back-up rate of 14, iPressure of 17, and PEEP of 16. FiO2 then titrated down to 14 throughout remainder of shift. SpO2-88-96%, tolerated vent mode without difficulty, pulling tidal volumes of 450-550. Occasional thick yellow secretions from ET tube. Propofol and precedex gtt continue to infuse, patient remains calm, and able to open eyes to verbal or noxious stimuli. PICC line remains patent and intact. Tan cath remains patent and intact, draining clear yellow urine. Report given to NOC shift RN.
--- NOTE | 2019-11-04 20:00 | NUR ---
PT INTUBATED AND SEDATED ON PROPOFOL AND PRECEDEX. GRIMACES TO PAINFUL STIMULI, WILL OPEN EYES AT TIMES. INTERMITTENTLY RAISES ARMS W OR W/O STIMULI. SPONTANEOUS MOVEMENT OF BILATERAL LOWER EXTREMITIES. DID NOT FOLLOW VERBAL COMMANDS TO NOD OR SQUEEZE HANDS. SEE SHIFT ASSESSMENT.
[2019-11-05 04:42] LABS: BASOPHILS ABSOLUTE AUTO 0.03 K/mm3 (0.00-0.23); BASOPHILS PERCENT AUTO 0 % (0-2); EOSINOPHILS ABSOLUTE AUTO 0.27 K/mm3 (0.00-0.68); EOSINOPHILS PERCENT AUTO 4 % (0-6); Hematocrit 38.6 % (37.0-53.0); Hemoglobin 11.5 g/dL (13.5-17.5); IMMATURE GRAN ABSOLUTE AUTO 0.03 K/mm3 (0.00-0.10); IMMATURE GRAN PERCENT AUTO 0 % (0-1); LYMPHOCYTES ABSOLUTE AUTO 1.22 K/mm3 (0.84-5.20); LYMPHOCYTES PERCENT AUTO 18 % (21-46); MONOCYTES ABSOLUTE AUTO 0.32 K/mm3 (0.16-1.47); MONOCYTES PERCENT AUTO 5 % (4-13); Mean Corpuscular HGB 26.3 pg (26.0-34.0); Mean Corpuscular HGB Conc 29.8 g/dL (31.5-36.5); Mean Corpuscular Volume 88 fL (80-100); Mean Platelet Volume 10.4 fL (9.1-12.4); NEUTROPHILS ABSOLUTE AUTO 4.97 K/mm3 (1.96-9.15); NEUTROPHILS PERCENT AUTO 73 % (41-73); Platelet Count 219 K/mm3 (150-400); RDW Coefficient Variation 17.8 % (11.7-14.2); RDW Standard Deviation 57.3 fL (35.1-46.3); Red Blood Cell Count 4.37 M/mm3 (4.30-5.90); White Blood Cell Count 6.84 K/mm3 (4.00-11.30)
[2019-11-05 04:57] LABS: Albumin, Blood 2.4 g/dL (3.4-5.0); Anion Gap 6 mmol/L (6-16); Blood Urea Nitrogen 30 mg/dL (8-24); Bun/Creatinine Ratio 36.1 (12.0-20.0); CO2, Blood 28 mmol/L (21-32); Calcium, Blood 8.1 mg/dL (8.5-10.1); Chloride, Blood 113 mmol/L (98-108); Creatinine, Blood 0.83 mg/dL (0.60-1.20); Glomerular Filtration Rate >60 (60-); Glucose, Blood 97 mg/dL (70-99); Phosphorus, Blood 4.1 mg/dL (2.5-4.9); Potassium, Blood 3.6 mmol/L (3.5-5.5); Sodium, Blood 147 mmol/L (136-145)
--- NOTE | 2019-11-05 06:32 | NUR ---
SUMMARY PT INTUBATED/ SEDATED WITH PROPOFOL AND PRECEDEX. AT TIMES PT WILL OPEN EYES ON COMMAND, MOVES ARMS AND LEGS SPONTANEOUSLY. ATIVAN WAS GIVEN PRIOR TO BED BATH TO ASSIST WITH SEDATION. REMAINS ON VENTILATORY SETTINGS. DR. CHOUDHARY WAS IN THIS AM, NO CHANGES TO VENT SETTINGS. NO ACUTE CHANGES.
--- NOTE | 2019-11-05 08:33 | NUR ---
PT SEDATED ON PROPOFOL 30MCG, PRECEDEX AT 0.5MCG FOR MECH VENT. PT HAD MINIMAL REACTION TO PAIN AND NO GAG. PROPOFOL PLACED ON STANDBY, PT WOKE UP AND ABLE TO FOLLOW COMMANDS WITHIN 5MIN. CHAPERONE HAND TO COMMAND. NODS HEAD APPROPRIATELY TO QUESTIONS. DENIES C/O PAIN OR DISCOMFORT. PROPOFOL DECREASED TO 25MCG, PRECEDEX DECREASED TO 0.4MCG. WILL CONT TO TITRATE DOWN TOLERATED. PEEP 16, FIO2 AT 45%. DR BOSTON IN UNIT AND GIVEN QUICK UPDATE. DR MISM IN TO SEE PT AND GIVEN UPDATE WELL.
--- NOTE | 2019-11-05 09:57 | NUR ---
DR BOSTON IN TO SEE PT. NO CHANGES TO VENT. POSSIBLE WAENING TRIAL TOMORROW. PT ANXIOUS, GAGGING, AND COUGHING ON VENT. PROPOFOL INCREASED TO 35MCG, PRECEDEX INCREASED TO 0.5MCG. PT NODS HEAD YES TO BEING ANXIOUS, NO TO PAIN. ATIVAN 1MG IVP GIVEN. COPIOUS VISCOUS ORAL SECRETIONS SX'D.
--- NOTE | 2019-11-05 12:00 | NUR ---
PT HAS HAD HIGH BP W SBP RANGING FROM 170-190'S. DR BOSTON NOTIFIED. HYDRALAZINE ORDERED. NO OTHER CHANGES FROM PRIOR ASSESSMENT. PT WELL SEDATED WITH PROPOFOL AT 35MCG AND PRECEDEX AT 0.5MCG, AROUSES TO NOXIOUS STIMULI.
--- NOTE | 2019-11-05 19:02 | NUR ---
PT REMAINED ON SAME VENT SETTINGS T/O SHIFT. PEEP REMAINS AT 16, FIO2 REMAINS AT 45%. SATS STAYED BETWEEN 90-96%, OCCASSIONALLY SATS DIPPED DOWN TO 88% WITH TURNS. PT WELL SEDATED W PROPOFOL AT 35MCG AND PRECEDEX AT 0.5MCG. PT AROUSES TO NOXIOUS STIMULI AND ABLE TO ANSWER QUESTIONS WHEN PROPOFOL HELD FOR JUST 2MIN. PT TOLERATED TUBE FEEDING WITH LITTLE TO NO RESIDUALS.
--- NOTE | 2019-11-05 19:15 | NUR ---
ASSUMED CARE OF PATIENT AT 1900 WITH THANH KIANA. PT SEDATED AND INTUBATED. VENT SETTINGS: PC 15, PEEP 16, FIO2 45%, VTE 545. PICC R ARM @8CM. PROPOFOL @35MCG/KG/MIN, PRECEDEX @ 0.5MCG/KG/MIN. VITAL HIGH PROTEIN @ 45ML/HR WITH 100ML H2O Q4HR. GAYTAN CATHETER DRAINING CLEAR, YELLOW URINE. SOFT RESTRAINTS BILATERAL WRISTS.
[2019-11-06 05:02] LABS: BASOPHILS ABSOLUTE AUTO 0.03 K/mm3 (0.00-0.23); BASOPHILS PERCENT AUTO 0 % (0-2); EOSINOPHILS ABSOLUTE AUTO 0.28 K/mm3 (0.00-0.68); EOSINOPHILS PERCENT AUTO 4 % (0-6); Hematocrit 37.7 % (37.0-53.0); Hemoglobin 11.3 g/dL (13.5-17.5); IMMATURE GRAN ABSOLUTE AUTO 0.03 K/mm3 (0.00-0.10); IMMATURE GRAN PERCENT AUTO 0 % (0-1); LYMPHOCYTES ABSOLUTE AUTO 1.09 K/mm3 (0.84-5.20); LYMPHOCYTES PERCENT AUTO 15 % (21-46); MONOCYTES ABSOLUTE AUTO 0.28 K/mm3 (0.16-1.47); MONOCYTES PERCENT AUTO 4 % (4-13); Mean Corpuscular HGB 26.3 pg (26.0-34.0); Mean Corpuscular Volume 88 fL (80-100); Mean Platelet Volume 10.9 fL (9.1-12.4); NEUTROPHILS ABSOLUTE AUTO 5.43 K/mm3 (1.96-9.15); NEUTROPHILS PERCENT AUTO 76 % (41-73); Platelet Count 210 K/mm3 (150-400); RDW Coefficient Variation 18.3 % (11.7-14.2); RDW Standard Deviation 58.6 fL (35.1-46.3); White Blood Cell Count 7.14 K/mm3 (4.00-11.30)
[2019-11-06 05:07] LABS: PCO2 Arterial 43.9 mmHg (35-45); PO2 Arterial 63.8 mmHg (80-100); pH Blood Arterial 7.42 (7.35-7.45)
[2019-11-06 05:35] LABS: Albumin, Blood 2.4 g/dL (3.4-5.0); Anion Gap 7 mmol/L (6-16); Blood Urea Nitrogen 36 mg/dL (8-24); Bun/Creatinine Ratio 40.2 (12.0-20.0); CO2, Blood 26 mmol/L (21-32); Calcium, Blood 8.3 mg/dL (8.5-10.1); Chloride, Blood 112 mmol/L (98-108); Glomerular Filtration Rate >60 (60-); Glucose, Blood 99 mg/dL (70-99); Magnesium, Blood 2.3 mg/dL (1.6-2.4); Phosphorus, Blood 4.5 mg/dL (2.5-4.9); Potassium, Blood 3.4 mmol/L (3.5-5.5); Sodium, Blood 145 mmol/L (136-145)
--- NOTE | 2019-11-06 06:20 | NUR ---
PT INTUBATED AND SEDATED WITH PROPOFOL @30MCG AND PRECEDEX @ 0.5MCG. PROPOFOL WAS SET AT 35MCG AT THE BEGINNING OF THE SHIFT. ATTEMPTED TO DROP RATE TO 25MCG, BUT PT BECAME HYPERTENSIVE. PT WILL OCCASIONALLY OPEN EYES TO VERBAL AND PAINFUL STIMULI. EYE OPENING IS LIMITED DUE TO CRUSTY LIDS. VENTILATORY SETTINGS REMAIN UNCHANGED. DULCOLAX WITHELD DUE TO DIARRHEA. TOLERATING TUBE FEEDS WITH RESIDUALS FROM 0-60ML.
--- NOTE | 2019-11-06 08:20 | NUR ---
ASSUMPTION OF CARE: Care assumed at 0700. Patient intubated and sedated. Vent on pressure support with current setting of AC 14, PEEP 16, inspiratory pressure of 15, FIO2 45%, pt's RR 20, tidal volume 500, SPO2 90-95% Patient is currently sleeping. LS CTA PT sleeping and sedated with propofol and precedex but withdrawing to painful stimuli and opens eyes to touch. VSS. HR 50'S TO 60'S, NSR. PICC line to RT upper arm patent and intact, infusing without difficulty. Tan cath patent and intact, draining clear dark yellow urine. TF at 45 ml/hr, with 100 ml H20 flush Q4hr. Bowel tones hypoactive. Bilateral soft wrist retraints in place to protect lines, tubes, cords. PT REPOSITIONED, WILL CONTINUE TO [facility].
--- NOTE | 2019-11-06 11:30 | NUR ---
UPDATE PT REPOSITIONED AND REASSESSED. FIO2 40% AND OTHER VENT SETTINGS UNCHANGED. LUNG SOUNDS REMAIN CLEAR AND SMALL AMOUNT OF SECRETIONS FROM ET TUBE. NEURO STATUS UNCHANGED. NO SEDATION VACTION PER DR. BOSTON. GOOD UNIARY OUTPUT AFTER LASIX.
--- NOTE | 2019-11-06 11:37 | NUR ---
Pt resting in bed and is intubated. Pt appears comfortable at this time. Spoke with crackling press operator. Plan to wean Pt off sedation tomorrow (day 13) in hopes Pt can participate in decision making. Palliative Care will remain available.
[2019-11-06 12:42] LABS: Vancomycin, Trough 15.9 ug/mL (5.0-10.0)
--- NOTE | 2019-11-06 19:26 | NUR ---
END OF SHIFT VENT SETTING AND SEDATION UNCHANGED SINCE LAST ASSESSMENT. PATIENT MEDICATED FOR PAIN/AGIATION X 2. VS REMAIN STABLE AND HR SINUS 50'S TO 60'S. PT REPOSTIONED FREQEUTNLY THROUGHOUT SHIFT AND EXTREMS ELEVATED. TUBE FEEDING INFUSING PER ORDERS. FAMILY UPDATED. REPORT TO ONCOMING SHIFT.
--- NOTE | 2019-11-06 20:00 | NUR ---
ASSUMED CARE OF PT AT 1915. REPORT RECEIVED AT BEDSIDE. PT PRESENTS IN BED. VENTED. ON PRESSURE SUPPORT. TOLERATING THIS WELL. PT CONTINUES ON PROPOFOL AT 30 MCG/KG AND PRECEDEX AT 0.5 MCG'S/KG. DID DECREASE PRECEDEX DRIP TO 0.4 MCGS. WILL REVIEW CHART AND PLAN OF CARE FOR THIS PT.
--- NOTE | 2019-11-06 22:01 | NUR ---
WILL DO BEDBATH FOR PT. RESIDUAL CHECK FROM OGT REVEALS APPROX 35 ML. THIS REINFUSED. TOLERATING TUBE FEEDING WELL. AFTER RT PT RECEIVES LASIX, WILL CLOSELY MONITOR OUTPUT. VSS. WILL CONTINUE TO MONITOR.
--- NOTE | 2019-11-06 23:36 | NUR ---
FULL BEDBATH DONE. OF NOTE: PT SOMEWHAT RESISTANT TO CARE. PULLS AGAINST RESTRAINTS. PT REASSURED, AND TOLD WHAT WAS HAPPENING. HAVE SUCTIONED PT PER ETT WITH RETURN OF WHITISH COLORED THIN SECRETIONS. PT CURRENTLY RESTING IN BED. WILL CONTINUE TO MONITOR.
--- NOTE | 2019-11-07 03:00 | NUR ---
PT CONTINUES ON PRESSURE SUPPORT WHEREAS HE IS TOLERATING THIS WELL. DOES HAVE RESPIRATORY RATES THAT MAINTAIN AROUND 20 BPM. OCCASIONAL SUCTIONING OF ETT WITH RETURN OF WHITISH COLORED THIN SECRETIONS. PT DEMONSTRATES STRONG COUGH EFFORT. WILL CONTINUE TO MONITOR.
[2019-11-07 04:46] LABS: BASOPHILS ABSOLUTE AUTO 0.04 K/mm3 (0.00-0.23); BASOPHILS PERCENT AUTO 1 % (0-2); EOSINOPHILS ABSOLUTE AUTO 0.32 K/mm3 (0.00-0.68); EOSINOPHILS PERCENT AUTO 4 % (0-6); Hematocrit 35.9 % (37.0-53.0); IMMATURE GRAN ABSOLUTE AUTO 0.03 K/mm3 (0.00-0.10); IMMATURE GRAN PERCENT AUTO 0 % (0-1); LYMPHOCYTES ABSOLUTE AUTO 1.05 K/mm3 (0.84-5.20); LYMPHOCYTES PERCENT AUTO 14 % (21-46); MONOCYTES ABSOLUTE AUTO 0.29 K/mm3 (0.16-1.47); MONOCYTES PERCENT AUTO 4 % (4-13); Mean Corpuscular HGB 26.9 pg (26.0-34.0); Mean Corpuscular HGB Conc 30.6 g/dL (31.5-36.5); Mean Corpuscular Volume 88 fL (80-100); Mean Platelet Volume 10.9 fL (9.1-12.4); NEUTROPHILS PERCENT AUTO 78 % (41-73); Platelet Count 199 K/mm3 (150-400); RDW Coefficient Variation 18.4 % (11.7-14.2); Red Blood Cell Count 4.09 M/mm3 (4.30-5.90); White Blood Cell Count 7.73 K/mm3 (4.00-11.30)
[2019-11-07 05:02] LABS: Albumin, Blood 2.4 g/dL (3.4-5.0); Anion Gap 5 mmol/L (6-16); Blood Urea Nitrogen 33 mg/dL (8-24); Bun/Creatinine Ratio 39.4 (12.0-20.0); CO2, Blood 28 mmol/L (21-32); Calcium, Blood 8.3 mg/dL (8.5-10.1); Chloride, Blood 113 mmol/L (98-108); Creatinine, Blood 0.84 mg/dL (0.60-1.20); Glomerular Filtration Rate >60 (60-); Glucose, Blood 91 mg/dL (70-99); Magnesium, Blood 2.3 mg/dL (1.6-2.4); Phosphorus, Blood 4.3 mg/dL (2.5-4.9); Potassium, Blood 3.7 mmol/L (3.5-5.5); Sodium, Blood 146 mmol/L (136-145)
--- NOTE | 2019-11-07 05:11 | NUR ---
PT WILL HAVE SEDATION VACATION THIS EARLY AM. HAS HAD LOW GRADE TEMP THIS NIGHT WITH T MAX AT 100.0. IS SOMEWHAT RESISTANT TO TURNS AND CARE AT TIMES. DOES HAVE FLATULANCE WITH TURNS, COUGH, AND SUCTIONING. WITH OGT RESIDUAL CHECKS NOTED PT HAS AIR/GAS WITH CHECKS. WILL CONTINUE TO MONITOR PT, AND WILL REPORT OFF TO ONCOMING RN.
[2019-11-07 05:45] LABS: PCO2 Arterial 45.4 mmHg (35-45); PO2 Arterial 76.3 mmHg (80-100); pH Blood Arterial 7.41 (7.35-7.45)
--- NOTE | 2019-11-07 06:23 | NUR ---
SEDATION VACATION DONE
--- NOTE | 2019-11-07 09:55 | NUR ---
EXTUBATION DR. BOSTON IN TO SEE PT. UPDATED SON ON CONDITION AND PLAN. RT AT BEDSIDE. PT EXTUBATED AT 0955 BY RT WITH RN AND THIS TEST INSPECTION ENGINEER AT BEDSIDE. PT PLACED ON BIPAP AND TOLERATING WELL. PRECEDEX REMAINS AT 0.4 MCG/KG/MIN AND PROPOFOL STOPPED.
--- NOTE | 2019-11-07 12:50 | NUR ---
CARE ASSUMED AT 0700 PT IS CURRENTLY SLEEPING BUT OPENS EYES IN RESPONSE TO VERBAL STIMULI. PT SEDATED WITH PRECEDEX, 0.4 MCG/KG/MIN AND PROPOFOL 30 MCG/KG/MIN. CURRENT VENT SETTINGS AC/PC /, BACKUP RATE 14, FIO2 40%, PEEP 16, TIDAL VOLUMES 487, RR 20, WITH SP02 >90% LUNGS REMAIN CLEAR BILATERALLY, ETT SUCTION PRODUCTIVE OF SMALL AMOUNTS OF THICK WHITE SPUTUM. SINUS SALVADOR IN 50'S-60'S. VSS. PICC LINE ON RIGHT UPPER ARM INTACT, PATENT, AND INFUSING. PATEINTS BOWEL TONES ACTIVE AND CURRENTLY RECEIVING OG CONTINOUS FEED AT GOAL RATE OF 45 ML/HR WITH WATER 100 ML EVERY 4 HOURS. GAYTAN INTACT, DRAING DARK YELLOW URINE TO GRAVITY. PTS EDEMA HAS DECREASED SINCE YESTERDAY.
--- NOTE | 2019-11-07 13:01 | NUR ---
REASSESSMENT LS REMAIN CLEAR, BIPAP ON WITH SETTINGS 12/5, FIO2 50%, RR 27-33, Vt 500'S, SPO2 >95%. PT SITTING UP IN CHAIR, EYES CLOSED, RESTING AFTER ATIVAN. REPEATED ATTEMPTS TO REMOVE BIPAP MASK DURING BREAK FROM RESTRAINTS, SWB RESTRAINTS REMAIN IN PLACE AT THIS TIME. COUGH WITH SOME CLEAR AND WHITE SECRETIONS REMAIN, ORAL CARE EVERY 4 HOURS. WILL CONTINUE TO MONITOR. PARENTS AND SON UPDATED BY STAFF.
--- NOTE | 2019-11-07 18:45 | NUR ---
SHIFT SUMMARY PT TOLERATING BIPAP WELL AFTER EXTUBATION. CURRENT BIPAP SETTINGS: 15/10, FIO2 50%, PTS RR 20-30'S, TIDAL VOLUME 400-500'S, SPO2 >90%. VSS PT SPENT MOST OF SHIFT UP IN CHAIR AND TOLERATED WELL. BACK TO BED THIS EVENING. PRECEDEX RATE UNCHANGED. PT REMAINS IN RESTRAINTS DUE TO NONCOMPLIANCE WITH BIPAP MASK. PT IS CONFUSED BUT CAN ANSWER SIMPLE QUESTION. PTS EDEMA HAS DECREASED WITH LASIX.
--- NOTE | 2019-11-07 20:00 | NUR ---
ASSUMED CARE OF PT AT 1915. REPORT RECEIVED AT BEDSIDE. PT PRESENTS IN BED. WEARING BIPAP. PT TOLERATING THIS WELL AT THIS TIME. PLACED TO 6 L/M O2 PER OXIMIZER WHILE PT HAS ORAL CARE DONE. PT COMPLIANT AND ACCEPTING OF ORAL CARE AND OF REASON FOR THIS. WILL MONITOR PT FOR ABILITY TO REMOVE RESTRAINTS. WILL REVIEW CHART AND PLAN OF CARE FOR THIS PT.
--- NOTE | 2019-11-07 22:00 | NUR ---
HAVE REMOVED SOFT WRIST RESTRAINTS FROM PAITENT AT 2129. PT HAS NOT PULLED AT BIPAP OR LINES. WILL CLOSELY MONITOR IF PT IS NEEDING TO HAVE THESE REPLACED. WILL CONTINUE TO MONITOR.
--- NOTE | 2019-11-07 23:50 | NUR ---
PT CONTINUES WITH BIPAP MASK ON. HAS REMAINED COMPLIANT. NO ATTEMPTS OBSERVED WITH PT TRYING TO REMOVE MASK. HAVE DONE TEACHING WITH PATIENT ON RATIONALE FOR BIPAP SECONDARY TO REMOVAL OF ETT EARLIER IN THE DAY. WILL CONTINUE TO MONITOR.
[2019-11-08 03:55] LABS: BASOPHILS ABSOLUTE AUTO 0.02 K/mm3 (0.00-0.23); BASOPHILS PERCENT AUTO 0 % (0-2); EOSINOPHILS PERCENT AUTO 4 % (0-6); Hematocrit 37.6 % (37.0-53.0); Hemoglobin 11.2 g/dL (13.5-17.5); IMMATURE GRAN ABSOLUTE AUTO 0.04 K/mm3 (0.00-0.10); IMMATURE GRAN PERCENT AUTO 1 % (0-1); LYMPHOCYTES ABSOLUTE AUTO 1.14 K/mm3 (0.84-5.20); LYMPHOCYTES PERCENT AUTO 14 % (21-46); MONOCYTES PERCENT AUTO 4 % (4-13); Mean Corpuscular HGB 26.5 pg (26.0-34.0); Mean Corpuscular HGB Conc 29.8 g/dL (31.5-36.5); Mean Corpuscular Volume 89 fL (80-100); Mean Platelet Volume 11.4 fL (9.1-12.4); NEUTROPHILS ABSOLUTE AUTO 6.63 K/mm3 (1.96-9.15); NEUTROPHILS PERCENT AUTO 79 % (41-73); Platelet Count 195 K/mm3 (150-400); RDW Coefficient Variation 17.7 % (11.7-14.2); RDW Standard Deviation 57.6 fL (35.1-46.3); Red Blood Cell Count 4.22 M/mm3 (4.30-5.90); White Blood Cell Count 8.43 K/mm3 (4.00-11.30)
[2019-11-08 04:14] LABS: Alanine Aminotransfer (ALT/SGP 20 U/L (12-78); Albumin, Blood 2.7 g/dL (3.4-5.0); Albumin/Globulin Ratio 0.6 (0.8-1.8); Alk Phos 122 U/L (50-136); Anion Gap 6 mmol/L (6-16); Aspartate Aminotrans (AST/SGOT 17 U/L (12-37); Bilirubin, Total 1.4 mg/dL (0.1-1.0); Blood Urea Nitrogen 25 mg/dL (8-24); Bun/Creatinine Ratio 34.1 (12.0-20.0); CO2, Blood 29 mmol/L (21-32); Calcium, Blood 8.7 mg/dL (8.5-10.1); Chloride, Blood 115 mmol/L (98-108); Creatinine, Blood 0.73 mg/dL (0.60-1.20); Globulin, Blood 4.8 g/dL (2.2-4.0); Glomerular Filtration Rate >60 (60-); Glucose, Blood 78 mg/dL (70-99); Magnesium, Blood 2.3 mg/dL (1.6-2.4); Phosphorus, Blood 3.2 mg/dL (2.5-4.9); Potassium, Blood 3.1 mmol/L (3.5-5.5); Sodium, Blood 150 mmol/L (136-145); Total Protein, Blood 7.5 g/dL (6.4-8.2)
--- NOTE | 2019-11-08 06:37 | NUR ---
PT HAS REQUESTED THAT HIS BIPAP BE REMOVED. HE STATED, "I WOULD RATHER THAN WEAR THE MASK ANY LONGER." PLACED PT ON OXIMIZER AT 9 L/M. EARLIER IN THE NIGHT PT REQUESTED TO BE SHAVED TO REDUCE IRRITATION WITH MASK AND MODERATE GROWTH LANDEROS. THIS DONE FOR PT. PT INCONTINENT TO MEDIUM STOOL. ATTENDS CHANGED. WELL LINENS CHANGED. PT ABLE TO ASSIST MODERATELY WITH TURNS. HAS A VERY GARBLED/GRAVEL VOICE. SOMEWHAT DIFFICULT TO UNDERSTAND. WILL CONTINUE TO MONITOR PT, AND WILL REPORT OFF TO ONCOMING RN.
--- NOTE | 2019-11-08 08:28 | NUR ---
CARE ASSUMED CARE ASSUMED AT 0700. PT SPEAKING AND APPEARS CALM. BIPAP SETTINGS: 15/10, FIO2 50%, RR: 20-30'S, TIDAL VOLUME 500-600'S, SPO2 94%. PATIENTS EDEMA HAS DECREASED SINCE YESTERDAY AND COMMUNICATION HAS INCREASED. PT ORIENTED TO SURROUNDINGS BUT COMMENTS BEING AT [facility], REORIENTED. PTS HR 104 AND SINUS TACHY. LUNG SOUNDS CLEAR THROUGHOUT WITH TACHYPNEA. AM CARE COMPLETE AND PT DENIES OTHER NEEDS.
--- NOTE | 2019-11-08 12:52 | NUR ---
UPDATE PT MOVED TO CHAIR USING CEILING LIFT. PT AWAKE, ORIENTED TO SELF AND PLACE. PTS BIPAP REMOVED AND PLACED ON OXYMIZER 12 L, TOLERATING WELL, SPO2 94%. PT TALKING AND ST IN ROOM. PT STATES HE PREFERS BEING CALLED "XIMENA." LUNGS CLEAR THROUGHOUT AND OCCASIONAL COUGH PRESET. PT TOLERATING SWALLOW EVALUATION WELL.
--- NOTE | 2019-11-08 13:20 | NUR ---
UPDATE PT DID WELL WITH EVAL BUT SHORTLY AFTER EVAL COMPLETED STARTED COUGHING FORCEFULLY. PT TO REMAIN NPO AT THIS TIME. AFTER COUGHING BEGAN, PT NO LONGER TOLERATING OXYMIZER AT 12L. PTS BP INCREASED TO 190'S SYSTOLIC AND 100'S DIASTOLIC. PT REPORTS BEING ANXIOUS AND HAVING A HEADACHE. PT PLACED BACK TO BIPAP, BP DECREASED TO 170'S SYTOLIC AND 108'S DIASTOLIC. PTS AGIATION AND ANXIETY APPEARS TO HAVE DECREASED AFTER BEING ON BIPAP AGAIN. BP IMPROVING.
--- NOTE | 2019-11-08 18:13 | NUR ---
END OF SHIFT SUMMARY PT NOW ORIENTED TO SELF, PLACE, AND SIUTATION. PT RESPONDS APPROPRIATELY. PTS EDEMA HAS DECREASED THROUGHOUT THE SHIFT. PT MOVED FROM CHAIR BACK TO BED. CURRENTLY ON BIPAP,SETTINGS UNCHANGED. PTS WAS PLACED ON OXYMIZER TO PROVIDER ORAL CARE BUT STARTED COUGHING VIGROUSLY AND BIPAP HAD TO BE RESUMED. NEW ORDER FOR ABX EYE OINTMENT FOR INCREASING REDNESS AND DRAINAGE. PTS BP HAS BEEN INCREASING SINCE , PATIENT GIVEN HYDRALAZINE WITHOUT IMPROVEMENT. ATIVAN WAS GIVEN WELL AND WILL CONTACT PROVIDER IF BP DOES NOT IMPROVE. LUNG SOUNDS CLEAR THROUGHOUT SHIFT AND SPO2 >90% WHILE ON BIPAP. WILL REPORT TO ONCOMING SHIFT.
--- NOTE | 2019-11-08 18:58 | NUR ---
UPDATE DR NOVA NOTIFIED OF BP AND HR, NEW INSTRUCTION TO ADMINISTER 2100 LASIX AT THIS TIME AND CONTINUE HYDRALAZINE ORDERED. LASIX AND HYDRALAZINE GIVEN. PT CONTINUALLY REMOVING BIPAP MASK, SWB RESTRAINTS REPLACED. REPORT TO ONCOMING SHIFT.
--- NOTE | 2019-11-08 20:10 | NUR ---
PATIENT RESTLESS AND ANXIOUS, ANGRY ABOUT WRIST RESTRAINTS. AGAIN EXPLAINED TO PATIENT THAT THE REASON THE RESTRAINTS WERE PLACED TO HELP HIM TO REMEMBER TO NOT PULL ON THE BIPAP. PATIENT AGREEING TO NOT REMOVE BIPAP WITHOUT STAFF IN THE ROOM SO THAT WE CAN PLACE THE OXYGEN 8L/OXY. PRECEDEX RESTARTED TO HELP PATIENT RELAX AND TO HELP HIM SERJIO THE BIPAP BETTER. PATIENT HELPING TO REPOSITION SELF IN THE BED, NOT STAYING ON ONE SIDE OR THE OTHER FOR LONG. PATIENTS SON, EMMA, GIVEN AN UPDATE.
--- NOTE | 2019-11-08 21:13 | NUR ---
PATIENT RESTING QUIETLY AND LEAVING BIPAP IN PLACE, PRECEDEX INFUSING AT 0.2MCG. PATIENT AWAKENS TO SLIGHT STIMULI FOR EYE CREAM, PO MEDS HELD DUE TO NPO PER SWALLOW EVAL. PATIENT REPOSITIONING SELF IN BED FROM BACK TO RIGHT SIDE FREQUENTLY.
[2019-11-09 04:43] LABS: BASOPHILS ABSOLUTE AUTO 0.03 K/mm3 (0.00-0.23); BASOPHILS PERCENT AUTO 0 % (0-2); EOSINOPHILS ABSOLUTE AUTO 0.21 K/mm3 (0.00-0.68); EOSINOPHILS PERCENT AUTO 2 % (0-6); Hematocrit 38.6 % (37.0-53.0); Hemoglobin 11.5 g/dL (13.5-17.5); IMMATURE GRAN ABSOLUTE AUTO 0.03 K/mm3 (0.00-0.10); IMMATURE GRAN PERCENT AUTO 0 % (0-1); LYMPHOCYTES ABSOLUTE AUTO 0.93 K/mm3 (0.84-5.20); LYMPHOCYTES PERCENT AUTO 11 % (21-46); MONOCYTES ABSOLUTE AUTO 0.27 K/mm3 (0.16-1.47); MONOCYTES PERCENT AUTO 3 % (4-13); Mean Corpuscular HGB 26.4 pg (26.0-34.0); Mean Corpuscular HGB Conc 29.8 g/dL (31.5-36.5); Mean Corpuscular Volume 89 fL (80-100); Mean Platelet Volume 10.1 fL (9.1-12.4); NEUTROPHILS ABSOLUTE AUTO 7.24 K/mm3 (1.96-9.15); NEUTROPHILS PERCENT AUTO 83 % (41-73); Platelet Count 188 K/mm3 (150-400); RDW Coefficient Variation 17.6 % (11.7-14.2); RDW Standard Deviation 57.3 fL (35.1-46.3); Red Blood Cell Count 4.36 M/mm3 (4.30-5.90); White Blood Cell Count 8.71 K/mm3 (4.00-11.30)
[2019-11-09 04:57] LABS: Anion Gap 8 mmol/L (6-16); Blood Urea Nitrogen 20 mg/dL (8-24); Bun/Creatinine Ratio 25.3 (12.0-20.0); CO2, Blood 29 mmol/L (21-32); Calcium, Blood 8.8 mg/dL (8.5-10.1); Chloride, Blood 112 mmol/L (98-108); Creatinine, Blood 0.79 mg/dL (0.60-1.20); Glomerular Filtration Rate >60 (60-); Glucose, Blood 90 mg/dL (70-99); Magnesium, Blood 2.1 mg/dL (1.6-2.4); Sodium, Blood 149 mmol/L (136-145)
--- NOTE | 2019-11-09 06:10 | NUR ---
SUMMARY PATIENT WEARING BIPAP 15/10 FIO2 50% MOST OF THE NIGHT, WITH SHORT BREAKS ON 8L/OXY. PATIENT SPONTANEOUS AND IMPULSIVE AT TIMES, NEEDING OCCASIONAL REMINDING TO CALL BEFORE REMOVING BIPAP SO WE CAN BE SURE HE GETS HIS OXYGEN IN PLACE. PATIENT REPOSITIONING SELF FORM RIGHT SIDE TO BACK SEVERAL TIMES DURING THE NIGHT. PRECEDEX AT 0.1MCG TO HELP PATIENT RELAX AND SERJIO BIPAP BETTER.
--- NOTE | 2019-11-09 12:30 | NUR ---
MID SHIFT ASSESSMENT PT HAS REMAINED OFF OF BIPAP SINCE APPROX 0800 AND HAS TOLERATED 8L OXYIZER. LUNGS ARE DIM, PT IS COUGHING UP THICK, LOO SPUTUM. THIS MORNING SPEECH WAS ABLE TO EVAL PT AND PT IS ABLE TO HAVE A DIET. PCT WILL ASSIST PT WITH LUNCH. MONITOR SHOWS PT TO BE IN SINUS RHTYHM/TACH WITH RATES 90'S-100'S. PT'S BP HAS BEEN ELEVATED AT TIMES. DISCUSSED WITH DR NOVA ABOUT RESTARTING ORAL BP MEDS NOW THAT PT IS ABLE TO EAT. LUKAS IS PUTTING OUT QUANITY SUFFICIANT CLEAR/YELLOW URINE. ASSISTED PT TO CHAIR VIA CEILING LIFT AFTER AM BED BATH.
--- NOTE | 2019-11-09 18:43 | NUR ---
SHIFT SUMMARY PT HAS BEEN ALERT, ORIENT TO PERSON, LOCATION, YEAR, FOLLOWING COMMANDS AND APPROPRIATE. PRECEDEX STOPPED AT THE BEGINNING OF SHIFT AND HAS REMAINED OFF ALL DAY. PT WAS TRANSITIONED TO OXYMIZER AT 8L FLOW ALSO AT BEGINNING OF SHIFT AND TOLERATED APPROX, 6 HOURS BEFORE PT HAD INCREASED DYSPNEA AND WAS PLACED BACKON BIPAP WHILE PT NAPPED. PT WAS ABLE TO TRANSITION BACK TO OXIMIZER OR OT EVAL AND DINNER, BUT REQUESTED TO BE PLACED BACK ON BIPAP PRIOR TO SHIFT CHANGE. PT HAD INCREASED BP READINGS THIS EVENING AND WAS TREATED WITH PRN HYDRALAZINE. THIS AFTERNOON PT WAS ABLE TO CONNECT WITH FAMILY ON THE PHONE, AND AFTER TALKING WITH FAMILY WAS A LITTLE TEARFUL. ENCOURGED PT TO WORK ON RE-GAINING STRENGTH AND PT WAS ABLE TO TOLERATE BEING UP IN CHAIR FOR A FEW HOURS USING CEILING LIFT. THIS EVENING PT EXPRESS THAT HE WOULD LIKE TO HAVE ALL INTERVENTIONS DONE AND TO KEEP HIM ALIVE. NOTIFIED DR BLEDSOE OF PT'S WISHES. PICC LINE WAS SLUGGISH TO FLUSH AND DRAW, CAPS CHANGED, WITH LITTLE IMPROVEMENT. NOTIFIED PICC RN WHIT OF ISSUES.
--- NOTE | 2019-11-09 21:21 | NUR ---
PATIENT AWAKE TO SLIGHT STIMULI, SLEEPING WITH BIPAP IN PLACE SET AT 15/10 FIO2 40%. ON 8L/OXY WHEN OFF BIPAP. STRONG MOIST COUGH WITH THICK WHITE SPUTUM. PATIENT REPOSITIONING SELF IN BED FOR COMFORT. PATIENT SERJIO PO MEDS WELL WITH SNACK OF PUDDING AND CRANBERRY JUICE.
--- NOTE | 2019-11-09 23:00 | NUR ---
PATIENT AWAKE ANXIOUS AND RESTLESS, FEELING IF HE COULDN'T CATCH HIS BREATH AND FEELING HOT. HARSH MOIST COUGH WITH THICK WHITE SPUTUM. HEATER ON BIPAP TURNED OFF, ATIVAN AND UDN TREATMENT GIVEN. BED AND BEDDING ADJUSTED. PATIENT RELAXING WITH BIPAP IN PLACE.
[2019-11-10 04:36] LABS: BASOPHILS ABSOLUTE AUTO 0.03 K/mm3 (0.00-0.23); BASOPHILS PERCENT AUTO 0 % (0-2); EOSINOPHILS ABSOLUTE AUTO 0.33 K/mm3 (0.00-0.68); EOSINOPHILS PERCENT AUTO 4 % (0-6); Hematocrit 41.6 % (37.0-53.0); Hemoglobin 12.5 g/dL (13.5-17.5); IMMATURE GRAN ABSOLUTE AUTO 0.02 K/mm3 (0.00-0.10); IMMATURE GRAN PERCENT AUTO 0 % (0-1); LYMPHOCYTES ABSOLUTE AUTO 1.24 K/mm3 (0.84-5.20); LYMPHOCYTES PERCENT AUTO 14 % (21-46); MONOCYTES ABSOLUTE AUTO 0.35 K/mm3 (0.16-1.47); MONOCYTES PERCENT AUTO 4 % (4-13); Mean Corpuscular HGB 26.4 pg (26.0-34.0); Mean Corpuscular Volume 88 fL (80-100); Mean Platelet Volume 10.2 fL (9.1-12.4); NEUTROPHILS ABSOLUTE AUTO 7.15 K/mm3 (1.96-9.15); NEUTROPHILS PERCENT AUTO 79 % (41-73); Platelet Count 213 K/mm3 (150-400); RDW Coefficient Variation 17.5 % (11.7-14.2); RDW Standard Deviation 56.2 fL (35.1-46.3); Red Blood Cell Count 4.73 M/mm3 (4.30-5.90); White Blood Cell Count 9.12 K/mm3 (4.00-11.30)
[2019-11-10 04:56] LABS: Albumin, Blood 2.9 g/dL (3.4-5.0); Anion Gap 3 mmol/L (6-16); Blood Urea Nitrogen 15 mg/dL (8-24); Bun/Creatinine Ratio 20.9 (12.0-20.0); CO2, Blood 34 mmol/L (21-32); Calcium, Blood 8.6 mg/dL (8.5-10.1); Chloride, Blood 109 mmol/L (98-108); Creatinine, Blood 0.72 mg/dL (0.60-1.20); Glomerular Filtration Rate >60 (60-); Glucose, Blood 89 mg/dL (70-99); Phosphorus, Blood 4.3 mg/dL (2.5-4.9); Potassium, Blood 3.2 mmol/L (3.5-5.5); Sodium, Blood 146 mmol/L (136-145)
--- NOTE | 2019-11-10 05:50 | NUR ---
SUMMARY PATIENT SLEEPING MOST OF THE NIGHT WITH BIPAP IN PLACE SET AT 15/10 FIO2 45%. PATIENT ANXIOUS ONCE AND MEDICATED WITH ATIVAN WITH GOOD RESULTS. USING 8L/OXY WHEN OFF BIPAP PATIENT TO PO WITHOUT DIFFICULTY. PATIENT REPOSITIONING SELF IN BED FOR COMFORT MOVING FREQUENTLY FROM BACK TO RIGHT SIDE.
--- NOTE | 2019-11-10 08:00 | NUR ---
Received report from Jennifer Gambino. patient awake in bed and is alert and able to communicate his needs. He is on oximiser at 8 L O2 and sats low 90%'s. He has PICC line dressing intact and site WNL's and is infusing D% at 50ml/hr. He is LBKA and is able to pull self up in when bed is flat. He sta up and is able to feed self and after breakfast request to be placed on BIPAP. Tolerated breakfast well.
--- NOTE | 2019-11-10 09:44 | NUR ---
Patient continues to rest on BIPAP. Dr Ramos assessed patient and he will be transfering to PCU. Denies and current needs. VSS, See EMR.
--- NOTE | 2019-11-10 11:51 | NUR ---
PT came by and got patient up to chair and has been ther for about 45 minutes and will remains up for lunch. Speech in room with patient. VSS.
--- NOTE | 2019-11-10 13:21 | NUR ---
Used over haed lift and placed patient back to bed and he wanted BIPAP placed back on to sleep. He has been very pleasant and cooperative with care. He is able to communicate his needs. VSS, See EMR.
--- NOTE | 2019-11-10 15:37 | NUR ---
Patient awoke and lab daniel blood and he requested to have oximizer placed back on and is at 8L O2 and sats low 90%. He is currently sleeping. He awakens and is able to communicate his needs. VSS, See EMR. He continues to tolerate meals and snacks.
--- NOTE | 2019-11-10 18:25 | NUR ---
Patient awakens from sleep and repositioned him. He is sitting up eating dinner and with minimal assist. Applied medication to both eyes and cleaned face. D% and beed Dc'd as he is eating and drinking and sodium back WNL's. He denies any current needs. We have been trying to get ahold of father to bring in leg and cloths no answer, patient will also try and Dr Ramos called as well to give update and no answer. VSS, See EMR. Britney had almist 2 L out of dark yellow urine.
--- NOTE | 2019-11-10 19:00 | NUR ---
REPORT FROM PRACHI Morales RN. ASSUMED PT CARE. PT LYING IN BED, FREQUENT COUGH. PT ALERT AND ORIENTED AND ABLE TO ANSWER QUESTIONS. VSS. PT WATCHING TV. NO IV FLUIDS INFUSING AT THIS TIME. TRIPLE LUMEN PICC TO MARTA CLEAN AND INTACT. DRESSING WNL. PT ABLE TO MOVE HIMSELF IN BED INDEPENDENTLY. PT INQUIRING ABOUT WHETHER OR NOT HE ACCIDENTALLY HAD A BM. ATTENDS CLEAN. TEMP PROBE GAYTAN DRAINING CLEAR KRISTINE URINE. ROOM TIDIED.
--- NOTE | 2019-11-10 20:00 | NUR ---
COMPLETE BEDBATH GIVEN, CATH CARE COMPLETE. ALL LINENS CHANGED. HAIR WASHED AND COMBED. PT ABLE TO TURN IN BED INDEPENDENTLY.
--- NOTE | 2019-11-10 20:20 | NUR ---
PT MEDICATED WITH SCHEDULED MEDS PER EMAR. PT DENIES NEEDS.
--- NOTE | 2019-11-10 21:00 | NUR ---
PT READY FOR BED, PLACED PT ON HIS BIPAP MACHINE. LIGHTS DIMMED. CALL LIGHT/REMOTE IN REACH.
--- NOTE | 2019-11-10 22:40 | NUR ---
DISCUSSED DC OF [facility] AND [facility] CONSULT WITH PHARMACIST. ALSO INSTRUCTED BY PHARMACIST TO DC THE [facility] TROUGH SCHE FOR 11/11/19 AT 0100.
--- NOTE | 2019-11-10 22:50 | NUR ---
PT REPOSITIONS HIMSELF OFTEN INDEPENDENTLY. BIPAP ON, VS WNL. WILL CONTINUE TO MONITOR.
--- NOTE | 2019-11-11 00:07 | NUR ---
PT SLEEPING, NADN. VSS. BIPAP ON AND PT SERJIO WELL.
--- NOTE | 2019-11-11 01:25 | NUR ---
PT CONTINUES TO SLEEP. NADN. PT REPOSITIONS OFTEN. VSS.
--- NOTE | 2019-11-11 02:20 | NUR ---
PT TOOK BIPAP OFF TO GET WATER. ASSISTED PUTTING BIPAP BACK ON. VSS.
--- NOTE | 2019-11-11 03:43 | NUR ---
ATTEMPT TO DRAW BLOOD FROM PICC LINE. ALL 3 LUMENS FLUSH WELL. UNABLE TO DRAW BLOOD. CHARGE AWARE. DAVID BELLE STATES HE WILL ASSESS THE LINE.
--- NOTE | 2019-11-11 03:54 | NUR ---
LAB TO BEDSIDE FOR DRAW. PLAN TO MOVE PT TO PCU ROOM 11.
[2019-11-11 04:05] LABS: BASOPHILS ABSOLUTE AUTO 0.04 K/mm3 (0.00-0.23); BASOPHILS PERCENT AUTO 1 % (0-2); EOSINOPHILS ABSOLUTE AUTO 0.42 K/mm3 (0.00-0.68); EOSINOPHILS PERCENT AUTO 5 % (0-6); Hemoglobin 12.5 g/dL (13.5-17.5); IMMATURE GRAN ABSOLUTE AUTO 0.03 K/mm3 (0.00-0.10); IMMATURE GRAN PERCENT AUTO 0 % (0-1); LYMPHOCYTES ABSOLUTE AUTO 1.25 K/mm3 (0.84-5.20); LYMPHOCYTES PERCENT AUTO 16 % (21-46); MONOCYTES ABSOLUTE AUTO 0.32 K/mm3 (0.16-1.47); MONOCYTES PERCENT AUTO 4 % (4-13); Mean Corpuscular HGB 26.3 pg (26.0-34.0); Mean Corpuscular HGB Conc 29.8 g/dL (31.5-36.5); Mean Corpuscular Volume 88 fL (80-100); Mean Platelet Volume 10.1 fL (9.1-12.4); NEUTROPHILS ABSOLUTE AUTO 5.66 K/mm3 (1.96-9.15); NEUTROPHILS PERCENT AUTO 73 % (41-73); Platelet Count 215 K/mm3 (150-400); RDW Coefficient Variation 17.3 % (11.7-14.2); RDW Standard Deviation 56.2 fL (35.1-46.3); Red Blood Cell Count 4.76 M/mm3 (4.30-5.90); White Blood Cell Count 7.72 K/mm3 (4.00-11.30)
[2019-11-11 04:21] LABS: Anion Gap 2 mmol/L (6-16); Blood Urea Nitrogen 15 mg/dL (8-24); Bun/Creatinine Ratio 21.6 (12.0-20.0); CO2, Blood 35 mmol/L (21-32); Calcium, Blood 8.8 mg/dL (8.5-10.1); Chloride, Blood 108 mmol/L (98-108); Glomerular Filtration Rate >60 (60-); Glucose, Blood 93 mg/dL (70-99); Magnesium, Blood 2.1 mg/dL (1.6-2.4); Phosphorus, Blood 4.5 mg/dL (2.5-4.9); Potassium, Blood 3.3 mmol/L (3.5-5.5); Sodium, Blood 145 mmol/L (136-145)
--- NOTE | 2019-11-11 04:30 | NUR ---
PT MOVED TO PCU 11 VIA BED. TRANSFERED EASILY TO NEW BED WITH LITTLE ASSISTANCE. PT ALERT AND ORIENTED. BROUGHT BIPAP OVER WELL. PT ROLLED SIDE TO SIDE TO REMOVE EXCESS LINENS.
--- NOTE | 2019-11-11 04:58 | NUR ---
PT ORIENTED TO NEW ROOM. CALL LIGHT/REMOTE IN REACH. VSS. RESP THERAPIST TO ROOM FOR EVAL. PLACED PT BACK ON BIPAP PER PT REQUEST.
--- NOTE | 2019-11-11 05:59 | NUR ---
PT OFF BIPAP AND PLACED ON 8L OXYMIZER CANNULA.
--- NOTE | 2019-11-11 06:12 | NUR ---
SHIFT SUMMARY PT HAD UNEVENTFUL NIGHT. SLEPT WELL. NO COMPLAINTS OF PAIN. PT ALERT AND ORIENTED TO PERSON PLACE AND SITUATION. CONFUSED TO DATE. PT CONVERSATIONAL AND PLEASANT. GAYTAN PATENT AND DRAINING KRISTINE COLORED URINE. PT LUNGS CLEAR TO UPPER LIPSCOMB SURYA DIMINISHED/COARSE TO LOWER LOBES. SKIN INTACT. PT ON 8L O2 PER OXYMIXER CANNULA. PT WATCHING TV. CALL LIGHT IN REACH. PT SERJIO PO WELL. PULSES WNL. VSS STABLE. WILL REPORT TO DAY SHIFT RN.
--- NOTE | 2019-11-11 08:20 | NUR ---
AM ASSESSMENT: Pt resting in bed. Denies pain, except for a WALTER that he rates 7/10. States that he is feeling good. Denies feeling SOB. LS diminished with fine crackles in bases. HR reg with murmur noted. BIox 96% on 8L per Oxymizer. Decreased to 7L per oxymizer. Pt is requesting to go back onto bipap for a nap. Denies other needs. Pt was placed on bipap and call light in reach.
--- NOTE | 2019-11-11 17:47 | NUR ---
SHIFT SUMMARY: Pt resting in bed with Bipap on at this time. Pt has done well this shift. Was able to get up with PT and OT to chair with stand pivot. Pt was able to sit up in chair for a few hours today. Oxygen was titrated down to 6L per oxymizer when he is not on bipap. Has denied pain throughout the day. Pt has had a cough throughout the day, states that it is productive to white, thick sputum. No other changes this shift. Stable at end of shift.
--- NOTE | 2019-11-11 19:46 | NUR ---
REPORT RECEIVED FROM BARBRA SHEIKH; VOIDED 300 ML CLEAR YELLOW FLUID VIA URINAL; WEARING BIPAP WITH O2 AT 6L BLEED IN; ALERT AND ORIENTED X 4;
[2019-11-12 04:08] LABS: Anion Gap 0 mmol/L (6-16); Blood Urea Nitrogen 13 mg/dL (8-24); Bun/Creatinine Ratio 17.8 (12.0-20.0); CO2, Blood 36 mmol/L (21-32); Calcium, Blood 8.6 mg/dL (8.5-10.1); Chloride, Blood 107 mmol/L (98-108); Creatinine, Blood 0.73 mg/dL (0.60-1.20); Glomerular Filtration Rate >60 (60-); Glucose, Blood 124 mg/dL (70-99); Potassium, Blood 3.3 mmol/L (3.5-5.5); Sodium, Blood 143 mmol/L (136-145)
--- NOTE | 2019-11-12 04:33 | NUR ---
SHIFT SUMMARY: 44 OBESE MALE RESTED COMFORTABLY ALL SHIFT; DENIES PAIN OR NAUSEA; VOIDED QUANTITY SUFFICIENT AFTER GAYTAN CATHETER WAS REMOVED 6/3 ON HI; ALERT AND ORIENTED X 4 AND ABLE TO FOLLOW ALL SIMPLE VERBAL COMMANDS; PT WORE BIPAP ALL SHIFT (OCCASIONALLY REMOVED MASK AND WORK OXIMIZER); BED LOW POSITION WITH CALL LIGHT AT SIDE.
--- NOTE | 2019-11-12 07:58 | NUR ---
ASSUMED CARE PT WAS SLEEPING WITH BIPAP ON WHEN I ARRIVED. PULSE OX WAS NOT READING SO I CHANGED IT OUT FOR A NEW ONE. PT REQUESTED TO GET OFF BIPAP AND ON HIS NASAL CANNULA. HE IS ALERT AND COOPERATIVE. NO NEEDS OR CONCERNS AT THIS TIME.
--- NOTE | 2019-11-12 12:15 | NUR ---
LEFT VOICEMAIL FOR PT FATHER TO CALL BACK. PT WOULD LIKE HIM TO BRING HIS PROTHESTESIS.
--- NOTE | 2019-11-12 13:49 | NUR ---
TRANSFER CARE REPORT WAS GIVEN TO JOHN ON MEDICAL FLOOR. THE PT TRANSFERRED ON 6L 02 AND THE NURSE WAS INFORMED THAT PT TRANSFERS USING TRAPEZE. PT'S PROTHESTIC LEG WAS TRANSFERRED WITH HIM AND PLUGGED INTO THE WALL IN HIS ROOM. PT WAS CALM AND COOPERATIVE WITH NO COMPLAINTS.
--- NOTE | 2019-11-12 20:08 | NUR ---
SHIFT SUMMARY- PT TRANSFERED TO MEDICAL FLOOR FROM PCU. PT ON 6L VIA OXIMIZER. PT ON CONT BI-OX SATS IN THE LOW 90'S. PT ABLE TO TRANSFER 1PA TO THE . STAND PIVOT ONLY, PT USES THE URINAL INDEPENDENTLY. PT HAS A PROSTETIC LEG THAT IS PLUGGED IN IN HIS ROOM AT THIS TIME; PHYSICAL THERAPY IS NOT COMFORTABLE WORKING WITH THE PT USING IT HOWEVER THIS PROSTETIC IS NEW TO THE PT, HE WAS FITTED FOR IT PRIOR TO HIS ADMISSION TO THE HOSPITAL. PT CURRENTLY IN BED CALL LIGHT IN REACH, BEDSIDE REPORT COMPLETED WITH NIGHT RN, PT AWAKE AND PARTICIPATED IN REPORT. NO S&S OF DISTRESS NOTED AT THE TIME OF SHIFT CHANGE PT DENIES THE NEED FOR PAIN MEDICATION.
--- NOTE | 2019-11-12 23:52 | NUR ---
WAS TOLD BY JULIAN WHO HAD A CONVERSATION WITH PT WHO EXPRESSED HE WAS DEPRESSED. PER SORTING MACHINE OPERATOR PT SAID HE'S IN THE HOSPITAL BECAUSE HE STOPPED TAKING CARE OF HIMSELF AND "LET HIMSELF GO". I WENT TO SPEAK TO PT. PT STATED HE LOST HIS R RIGHT 2 YEARS AGO AND THERE WERE "OTHER THINGS" IN HIS LIFE HE'S ALSO DEALING WITH. PT STATED TO ME THAT HE IS ALSO A DRUG ADDICT AND EXPRESSED TO ME HE'S "TRYING TO GET OFF OF IT". PT SOUNDS SINCERE. I EMPATHIZED WITH PT. PT DENIES OF HAVING THOUGHTS OF HURTING HIMSELF OR EVER HAVING THOUGHTS OF HURTING HIMSELF. PT DOES HAVE FRIENDS HE CAN TALK TO.
--- NOTE | 2019-11-13 05:16 | NUR ---
SALES FLOOR MANAGER SUMMARY PT A/O X4. TRANSFERS WITH 1 ASSIST TO W/C. VSS. HAS BEEN CPAP WITH 6 L BLEED IN SATTING IN THE LOW TO MID 90'S. DENIES PAIN, DIZZINESS, NAUSEA. SOB WITH EXERTION. NO ACUTE CHANGES OVERNIGHT. SLEPT WELL.
[2019-11-13 05:33] LABS: BASOPHILS ABSOLUTE AUTO 0.04 K/mm3 (0.00-0.23); BASOPHILS PERCENT AUTO 1 % (0-2); EOSINOPHILS ABSOLUTE AUTO 0.31 K/mm3 (0.00-0.68); EOSINOPHILS PERCENT AUTO 5 % (0-6); Hematocrit 39.8 % (37.0-53.0); Hemoglobin 11.8 g/dL (13.5-17.5); IMMATURE GRAN ABSOLUTE AUTO 0.01 K/mm3 (0.00-0.10); IMMATURE GRAN PERCENT AUTO 0 % (0-1); LYMPHOCYTES ABSOLUTE AUTO 1.36 K/mm3 (0.84-5.20); LYMPHOCYTES PERCENT AUTO 22 % (21-46); MONOCYTES ABSOLUTE AUTO 0.29 K/mm3 (0.16-1.47); MONOCYTES PERCENT AUTO 5 % (4-13); Mean Corpuscular HGB 26.2 pg (26.0-34.0); Mean Corpuscular HGB Conc 29.6 g/dL (31.5-36.5); Mean Corpuscular Volume 88 fL (80-100); Mean Platelet Volume 10.4 fL (9.1-12.4); NEUTROPHILS ABSOLUTE AUTO 4.25 K/mm3 (1.96-9.15); NEUTROPHILS PERCENT AUTO 68 % (41-73); Platelet Count 228 K/mm3 (150-400); RDW Coefficient Variation 17.5 % (11.7-14.2); RDW Standard Deviation 56.2 fL (35.1-46.3); Red Blood Cell Count 4.51 M/mm3 (4.30-5.90); White Blood Cell Count 6.26 K/mm3 (4.00-11.30)
[2019-11-13 05:58] LABS: Anion Gap 2 mmol/L (6-16); Blood Urea Nitrogen 12 mg/dL (8-24); Bun/Creatinine Ratio 16.8 (12.0-20.0); CO2, Blood 33 mmol/L (21-32); Calcium, Blood 8.7 mg/dL (8.5-10.1); Chloride, Blood 107 mmol/L (98-108); Creatinine, Blood 0.71 mg/dL (0.60-1.20); Glomerular Filtration Rate >60 (60-); Glucose, Blood 86 mg/dL (70-99); Potassium, Blood 3.7 mmol/L (3.5-5.5); Sodium, Blood 142 mmol/L (136-145)
--- NOTE | 2019-11-13 19:52 | NUR ---
SHIFT SUMMARY- PT ALERT AND ORIENTED. PT HAS BEEN IN THE HOSPITAL LONG ENOUGH TO GET THE METH OUT OF HIS SYSTEM. PT TOLD STAFF HE WANTS TO BE COMPLIANT AND HE WANTS TO STAY OFF THE METH, HE CONVEYED FEAR THAT HE WILL RELAPSE WHEN HE GOES HOME. ASH WORKER IS INVOLVED TO HELP WITH DISCHARGE PLANNING. PT NEEDS SOME ASSISTANCE DEVELOPING A SUPPORT SYSTEM TO HELP HIM SUCCEED IN LIFE GOALS.
--- NOTE | 2019-11-14 04:21 | NUR ---
SUMMARY PT HAD NO ISSUES. PT SLEPT WELL AND USED CPAP FOR MOST OF SHIFT. PT IS EAGER TO GO HOME. PT SLEEPING AND IN NO DISTRESS. CALL LIGHT IN REACH.
--- NOTE | 2019-11-14 17:01 | NUR ---
SHIFT SUMMARY- PT IS A/O, PLESANT AND COOPERATIVE. HE IS ON 6 L OF 02 VIA OXIMIZER. CHANGED HIS PICC LINE DRESSING THIS AFTERNOON PT TOOK A SHOWER. GAVE INFORMATION OF FINDING A PRIMARY CARE PROVIDER, DISCHARGE IS PENDING DUE TO HIM NEEDING TO GO HOME WITH HOME HEALTH. HE IS EATING AND DRINKING WELL.
--- NOTE | 2019-11-15 05:53 | NUR ---
SHIFT SUMMARY ASSUMED CARE OF PT AT 1900. PT IS A/OX4, DENIES N/T IN EXTREMTY. HEART SOUNDS REGULAR, LUNG SOUNDS CLEAR, DENIES CP/SOB. PT USED CPAP T/O THE NIGHT. PT WOULD DESATURATE TO 82% AND BACK TO 87%, CONSULTED RT. PT WEARS AN OXIMIZER ON 6L. R FOOT AMPUTATED, L FOOT IS DISCOLORED AND DRY. PT IS 1P SBA TO W/C AND BATHROOM. NO ACUTE EVENTS DURING THE NIGHT. PT SLEPT T/O THE NIGHT. CALL LIGHT IN REACH, BED IN LOWEST POSTION, WILL CONTINUE TO MONITOR UNTIL DAYSHIFT NURSE ARRIVES.
--- NOTE | 2019-11-15 18:11 | NUR ---
SHIFT SUMMARY- PT IS A/O, PLESANT AND COOPERATIVE. HE IS USING THE URINAL AT BEDSIDE. HE IS EATING AND DRINKING WELL. HE HAD SOME EPISODES OF DECREASED OXYGEN SATS WHICH WERE CORRECETED WITH ENCOURGING DEEP BREATHING. HE IS WORKING WITH RT AND RECIEVING BREATHING TREATMENTS.
--- NOTE | 2019-11-16 05:13 | NUR ---
SHIFT SUMMARY PT STATES THAT HE "FEELS GREAT". NO COMPLAINTS OF SOB OR PAIN. PT CONTINUED TO BE ON 6 L BLEEDIN VIA OXYMIZER AND CPAP WHILE SLEEPING. R LEG AMPUTATION. PROSTHESIS AT BEDSIDE. PT USING URINAL INDEPENDENTLY WHILE IN BED. VITAL SIGNS STABLE. NO ACUTE CHANGES THIS EVENING. PLAN TO D/C HOME TODAY WITH HOME HEALTH.
--- NOTE | 2019-11-16 12:19 | NUR ---
RECEIVED ORDER FOR DC PICC
[2019-11-16] MEDS ORDERED: AMLO10 PO (12:50)
[2019-11-16] MEDS ORDERED: [UNRECOGNIZED DRUG - OTHER] BOTHEYES (12:51)
[2019-11-16] MEDS ORDERED: FURO40 PO (12:52)
[2019-11-16] MEDS ORDERED: METO25 PO (12:52)
[2019-11-16] MEDS ORDERED: IPRAT-ALBUT 0.5-3 ML INH (12:52)
[2019-11-16] MEDS ORDERED: POTCHL20ER PO (12:53)
[2019-11-16] MEDS ORDERED: FAMO40 PO (12:53)
--- NOTE | 2019-11-16 13:42 | NUR ---
REVIEW D'C W/PATIENT. AWARE TO BAG REPAIRER MEDS AT [facility]. AWARE NEEDS TO ESTABLISH CARE W/NEW PCP AND HAS APPT 11/26. AWARE NEEDS TO HAVE INSURANCE BEFORE GOING TO APPT. ANSWER ALL QUESTIONS. ADVISED HAS HAD MEDS FOR THE DAY EXCEPT FAMOTIDINE WHICH IS OTC. CALLED AND LEFT MESSAGE ON FATHERS CELL PHONE TO COME AND GET HIM. AWAITING RIDE.
== END 2019-11-16 14:40 | disposition home health service (06) | DRG 207 ==
LOC: ER 10:38 → PCU 12:52 → ICUE 12:52 → ICUW 12:52 → ICUE 14:00 → PCU 11-11 04:29 → MEDS 11-12 13:50 → ENPENDDIS 11-16 12:48 → MEDS 11-16 14:40
PROVIDERS: Emergency Medicine; Internal Medicine; Internal Medicine Critical Care Medicine; Internal Medicine Pulmonary Disease; Pharmacist; ADMIT Internal Medicine
PROC: 5A1955Z Respiratory Ventilation, Greater than 96 Consecutive Hours (ICD-10-PCS; 2019-10-25)
PROC: 0BH18EZ Insertion of Endotracheal Airway into Trachea, Via Natural or Artificial Opening Endoscopic (ICD-10-PCS; 2019-10-25)
PROC: 0B978ZZ Drainage of Left Main Bronchus, Via Natural or Artificial Opening Endoscopic (ICD-10-PCS; principal; 2019-10-28)
PROC: 0B948ZZ Drainage of Right Upper Lobe Bronchus, Via Natural or Artificial Opening Endoscopic (ICD-10-PCS; 2019-10-28)
PROC: 0B938ZZ Drainage of Right Main Bronchus, Via Natural or Artificial Opening Endoscopic (ICD-10-PCS; 2019-10-28)
PROC: 5A09357 Assistance with Respiratory Ventilation, Less than 24 Consecutive Hours, Continuous Positive Airway Pressure (ICD-10-PCS; 2019-11-07)
DX: J96.22 Acute and chronic respiratory failure with hypercapnia (principal); I50.33 Acute on chronic diastolic (congestive) heart failure; G92 Toxic encephalopathy; J15.212 Pneumonia due to Methicillin resistant Staphylococcus aureus; J44.1 Chronic obstructive pulmonary disease with (acute) exacerbation; E87.2 Acidosis; E66.2 Morbid (severe) obesity with alveolar hypoventilation; Z68.41 Body mass index [BMI] 40.0-44.9, adult; J98.11 Atelectasis; J44.0 Chronic obstructive pulmonary disease with (acute) lower respiratory infection; Z87.891 Personal history of nicotine dependence; Z89.611 Acquired absence of right leg above knee; F15.10 Other stimulant abuse, uncomplicated; Z20.828 Contact with and (suspected) exposure to other viral communicable diseases; J39.8 Other specified diseases of upper respiratory tract; E87.6 Hypokalemia; E11.9 Type 2 diabetes mellitus without complications
CPT/HCPCS: 31500; 31720; 36415; 36569; 36600; 51702; 70450; 71045; 71250; 71260; 80048; 80053; 80069; 80202; 81001; 82330; 82550; 82553; 82803; 82947; 83036; 83605; 83735; 83880; 84100; 84132; 84439; 84443; 84484; 85007; 85025; 85027; 85379; 87040; 87070; 87077; 87086; 87147; 87186; 87205; 92526; 92610; 93005; 93010; 94002; 94003; 94640; 94660; 94667; 94668; 94761; 94762; 96361-59; 96365-59; 96372-59; 96375-59; 97110; 97116; 97162; 97167; 97530; 97535; 99291-25; 99292; A9270; A9270-GY; C1751; G0480; J0360; J0610; J1650; J1815; J1940; J1956; J2060; J2543; J2704; J2920; J2930; J3010; J3370; J3480; J7030; J7050; J7070; Q9967; U0002

== ENCOUNTER 2020-01-22 17:05 | Inpatient (IN) | payer OTHER ==
[~2020-01-22] VITALS: Ht 188 cm; Wt 154.6 kg
[~2020-01-22 17:05] MED LIST changes: +FAMO40 PO; +FURO40 PO; +IPRAT-ALBUT 0.5-3 ML NEB; +METO25 PO; +POTCHL20ER PO; +[UNRECOGNIZED DRUG - OTHER] BOTHEYES
[2020-01-22 17:44] LABS: BASOPHILS ABSOLUTE AUTO 0.03 K/mm3 (0.00-0.23); BASOPHILS PERCENT AUTO 0 % (0-2); EOSINOPHILS PERCENT AUTO 0 % (0-6); Hematocrit 46.8 % (37.0-53.0); Hemoglobin 13.3 g/dL (13.5-17.5); IMMATURE GRAN PERCENT AUTO 2 % (0-1); LYMPHOCYTES PERCENT AUTO 5 % (21-46); MONOCYTES ABSOLUTE AUTO 0.84 K/mm3 (0.16-1.47); MONOCYTES PERCENT AUTO 6 % (4-13); Mean Corpuscular HGB Conc 28.4 g/dL (31.5-36.5); Mean Corpuscular Volume 91 fL (80-100); Mean Platelet Volume 9.5 fL (9.1-12.4); NEUTROPHILS ABSOLUTE AUTO 11.65 K/mm3 (1.96-9.15); NEUTROPHILS PERCENT AUTO 87 % (41-73); NRBC ABSOLUTE 0.32 K/mm3 (0.00-0.02); NRBC Auto 2.4 /100 WBC (0.0-0.2); Platelet Count 229 K/mm3 (150-400); RDW Coefficient Variation 19.5 % (11.7-14.2); RDW Standard Deviation 65.1 fL (35.1-46.3); Red Blood Cell Count 5.12 M/mm3 (4.30-5.90); White Blood Cell Count 13.42 K/mm3 (4.00-11.30)
[2020-01-22 17:52] LABS: PCO2 Venous 69.9 mmHg (38-42); pH Blood Venous 7.25 (7.34-7.37)
[2020-01-22 17:53] LABS: Bicarbonate Venous 25.4 mmol/L (24.0-30.0)
[2020-01-22 18:06] LABS: Albumin, Blood 3.4 g/dL (3.4-5.0); Albumin/Globulin Ratio 0.6 (0.8-1.8); Alk Phos 185 U/L (50-136); Anion Gap 2 mmol/L (6-16); Bilirubin, Total 1.4 mg/dL (0.1-1.0); Blood Urea Nitrogen 20 mg/dL (8-24); CO2, Blood 33 mmol/L (21-32); Calcium, Blood 7.8 mg/dL (8.5-10.1); Chloride, Blood 99 mmol/L (98-108); Creatinine, Blood 1.33 mg/dL (0.60-1.20); Globulin, Blood 5.4 g/dL (2.2-4.0); Glomerular Filtration Rate >60 (60-); Glucose, Blood 130 mg/dL (70-99); Potassium, Blood 5.3 mmol/L (3.5-5.5); Sodium, Blood 134 mmol/L (136-145); Total Protein, Blood 8.8 g/dL (6.4-8.2); Troponin I 0.435 ng/mL (0.000-0.040)
[2020-01-22 18:22] LABS: Alanine Aminotransfer (ALT/SGP 1898 U/L (12-78); Aspartate Aminotrans (AST/SGOT 2277 U/L (12-37)
--- NOTE | 2020-01-22 19:45 | NUR ---
PT UP TO ICU 12 FROM ED VIA GURNEY. INTUBATED AND SEDATED. PROPOFOL INFUSING AT 35MCG.
[2020-01-22 20:59] LABS: Source, Urine Voided
[2020-01-22 21:03] LABS: International Normalized Ratio 1.92; Prothrombin Time Results 19.8 Sec (9.7-11.5)
[2020-01-22 21:06] LABS: Appearance, Urine Hazy (Clear); Bilirubin, Urine Neg (Neg); Blood, Urine 4+ (Neg); Color, Urine Amber (P-Yellow); Glucose Qualitative, Urine Neg (Neg); Ketones, Urine Neg (Neg); Leukocyte Esterase, Urine Neg (Neg); Nitrite, Urine Neg (Neg); Protein, Urine 3+ (Neg); Urobilinogen, Urine 2+ (Normal)
[2020-01-22 21:07] LABS: Thyroid Stimulating Hormone 0.261 uIU/mL (0.360-4.800); Troponin I 0.473 ng/mL (0.000-0.040)
[2020-01-22 21:19] LABS: Amorphous Light (0-Heavy); Bacteria Many /hpf; Red Blood Cells, Urine 0-2 /hpf (0-2); Squamous Epithelial Cells Few /hpf (Few)
[2020-01-22 21:20] LABS: Hyaline Casts 0-2 /lpf (0-2)
[2020-01-22 21:26] LABS: U Amphetamine Screen DETECTED; U Barbituate Screen Not Detected; U Benzodiazapine Screen Not Detected; U Buprenorphine Screen Not Detected; U Cannabinoids Screen Not Detected; U Cocaine Screen Not Detected; U Methadone Screen Not Detected; U Methamphetamine Screen DETECTED; U Opiates Screen Not Detected; U Oxycodone Screen Not Detected; U Phencyclidine Screen Not Detected; U Propoxyphene Screen Not Detected
[2020-01-22 22:42] LABS: PCO2 Arterial 56.4 mmHg (35-45); PO2 Arterial 59.2 mmHg (80-100); pH Blood Arterial 7.34 (7.35-7.45)
[2020-01-23 03:23] LABS: BASOPHILS ABSOLUTE AUTO 0.01 K/mm3 (0.00-0.23); BASOPHILS PERCENT AUTO 0 % (0-2); EOSINOPHILS PERCENT AUTO 0 % (0-6); Hematocrit 41.7 % (37.0-53.0); Hemoglobin 12.1 g/dL (13.5-17.5); IMMATURE GRAN ABSOLUTE AUTO 0.06 K/mm3 (0.00-0.10); IMMATURE GRAN PERCENT AUTO 1 % (0-1); LYMPHOCYTES ABSOLUTE AUTO 0.64 K/mm3 (0.84-5.20); LYMPHOCYTES PERCENT AUTO 6 % (21-46); MONOCYTES ABSOLUTE AUTO 0.15 K/mm3 (0.16-1.47); MONOCYTES PERCENT AUTO 1 % (4-13); Mean Corpuscular HGB 25.9 pg (26.0-34.0); Mean Corpuscular Volume 89 fL (80-100); Mean Platelet Volume 9.8 fL (9.1-12.4); NEUTROPHILS ABSOLUTE AUTO 10.71 K/mm3 (1.96-9.15); NEUTROPHILS PERCENT AUTO 93 % (41-73); NRBC ABSOLUTE 0.16 K/mm3 (0.00-0.02); NRBC Auto 1.4 /100 WBC (0.0-0.2); Platelet Count 198 K/mm3 (150-400); RDW Coefficient Variation 19.3 % (11.7-14.2); RDW Standard Deviation 62.4 fL (35.1-46.3); Red Blood Cell Count 4.67 M/mm3 (4.30-5.90); White Blood Cell Count 11.57 K/mm3 (4.00-11.30)
[2020-01-23 03:56] LABS: Troponin I 0.398 ng/mL (0.000-0.040)
[2020-01-23 03:57] LABS: Albumin, Blood 3.3 g/dL (3.4-5.0); Albumin/Globulin Ratio 0.8 (0.8-1.8); Bilirubin, Total 1.6 mg/dL (0.1-1.0); Bun/Creatinine Ratio 16.6 (12.0-20.0); Calcium, Blood 7.9 mg/dL (8.5-10.1); Creatinine, Blood 1.45 mg/dL (0.60-1.20); Globulin, Blood 4.4 g/dL (2.2-4.0); Potassium, Blood 5.9 mmol/L (3.5-5.5); Total Protein, Blood 7.7 g/dL (6.4-8.2)
--- NOTE | 2020-01-23 05:36 | NUR ---
SHIFT SUMMARY: NO ACUTE CHANGES T/O SHIFT. INTUBATED AND SEDATED. ROUSES TO NOXIOUS STIMULI SUCH ORAL CARE. LUNG SOUNDS CLEAR AND DIM IN BASES. IN SR. HR IN THE 70S. SBP WAS LOW ON ADMIT BUT IS CURRENTLY IN THE 130S. VENT SETTINGS ARE 16/500/PEEP 15/FIO2 100%. SPO2 >85%. PER DR CHOUDHARY OK IF PT SATS ARE IN MID 80S. GAYTAN IN PLACE DRAINING KRISTINE URINE WITH SEDIMENT. PT HAS AKA ON R LEG. L LEG SKIN IS DRY AND SCALING. PEDAL PULSE PRESENT. SKIN IS OTHERWISE INTATCT. WILL PASS REPORT TO ONCOMING SHIFT
--- NOTE | 2020-01-23 07:52 | NUR ---
[place] of Care: Care assumed at 0700hr. Patient intubated and sedated with propofol gtt at 45mcg/kg/min. Appears calm and comfortable, while at rest, but responds to noxious stimuli, withdraws all extremities. Vent to AC 16/500/15/100%, spO2-92%, tolerating vent without difficulty. Peripheral IV's x2 patent and intact, infusing without difficulty. Tan cath patent and intact, draining cloudy yellow urine. OG to low intermittent suction, minimal amount of green bile drainage noted in tubing. Bilateral soft wrist restraints in place to protect lines, tubes, cords. Plan to titrate FiO2 down as indicated. Will continue to monitor.
--- NOTE | 2020-01-23 12:18 | NUR ---
echocardiogram complete
--- NOTE | 2020-01-23 18:02 | NUR ---
Shift Summary: Patient remains intubated and sedated throughout shift. Propofol decreased from 45 to 40mcg/kg/min early in shift, this dose effective. Patient responds to noxious stimuli, and spontaneously moves all extremities. Occasionally turns head [id number], but mostly calm/sleeping when not stimulated by staff. BP and HR remain stable. Spoke with Dr. Holman this morning, received orders to increase ventilator rate from 16 to 20, and increase PEEP from 15 to 18, to allow decrease of FiO2 (100%). Vent changes effective throughout shift. Able to titrate FiO2 down to 55%, and PEEP back down to 16. Again spoke with Dr. Holman this afternoon, received instructions to maintain current PEEP of 16 until FiO2 is titrated down to 45%. SpO2 90-96% throughout shift. Tan cath remains patent and intact, draining dark yellow cloudy urine. Peripheral IV remains patent and intact. Appears calm and comfortable this time, will continue to monitor until report NOC shift RN.
--- NOTE | 2020-01-23 20:00 | NUR ---
ASSUMED CARE: PT INTUBATED AND SEDATED. LUNG SOUNDS CLEAR, DIM IN BASES. VENT SETTINGS 20/500/PEEP 16/FIO2 55%. IN SR HR 60-70S, SBP 120-140S. AFEBRILE. GAYTAN IN PLACE. URINE IS VERY CLOUDY WITH LARGE AMTS OF SEDIMENT. ON PROPOFOL AT 40MCG AND NS AT 75MLS/HR. WILL CONTINUE TO MONITOR
[2020-01-23 20:29] LABS: Vancomycin, Trough 19.7 ug/mL (5.0-10.0)
[2020-01-24 03:41] LABS: BASOPHILS ABSOLUTE AUTO 0.01 K/mm3 (0.00-0.23); BASOPHILS PERCENT AUTO 0 % (0-2); EOSINOPHILS PERCENT AUTO 0 % (0-6); Hematocrit 41.4 % (37.0-53.0); Hemoglobin 12.4 g/dL (13.5-17.5); IMMATURE GRAN ABSOLUTE AUTO 0.06 K/mm3 (0.00-0.10); IMMATURE GRAN PERCENT AUTO 1 % (0-1); LYMPHOCYTES ABSOLUTE AUTO 0.65 K/mm3 (0.84-5.20); LYMPHOCYTES PERCENT AUTO 6 % (21-46); MONOCYTES PERCENT AUTO 4 % (4-13); Mean Corpuscular HGB 25.9 pg (26.0-34.0); Mean Corpuscular Volume 87 fL (80-100); Mean Platelet Volume 10.7 fL (9.1-12.4); NEUTROPHILS ABSOLUTE AUTO 10.17 K/mm3 (1.96-9.15); NEUTROPHILS PERCENT AUTO 89 % (41-73); NRBC ABSOLUTE 0.17 K/mm3 (0.00-0.02); NRBC Auto 1.5 /100 WBC (0.0-0.2); Platelet Count 201 K/mm3 (150-400); RDW Coefficient Variation 19.3 % (11.7-14.2); Red Blood Cell Count 4.78 M/mm3 (4.30-5.90); White Blood Cell Count 11.39 K/mm3 (4.00-11.30)
[2020-01-24 04:04] LABS: Albumin, Blood 3.1 g/dL (3.4-5.0); Albumin/Globulin Ratio 0.7 (0.8-1.8); Alk Phos 133 U/L (50-136); Anion Gap 4 mmol/L (6-16); Bilirubin, Total 1.1 mg/dL (0.1-1.0); Blood Urea Nitrogen 30 mg/dL (8-24); Bun/Creatinine Ratio 24.4 (12.0-20.0); CO2, Blood 30 mmol/L (21-32); Calcium, Blood 8.1 mg/dL (8.5-10.1); Chloride, Blood 105 mmol/L (98-108); Creatinine, Blood 1.23 mg/dL (0.60-1.20); Globulin, Blood 4.3 g/dL (2.2-4.0); Glomerular Filtration Rate >60 (60-); Glucose, Blood 121 mg/dL (70-99); Phosphorus, Blood 3.4 mg/dL (2.5-4.9); Potassium, Blood 5.2 mmol/L (3.5-5.5); Sodium, Blood 139 mmol/L (136-145); Total Protein, Blood 7.4 g/dL (6.4-8.2)
[2020-01-24 04:07] LABS: Alanine Aminotransfer (ALT/SGP 2610 U/L (12-78); Aspartate Aminotrans (AST/SGOT 1600 U/L (12-37)
--- NOTE | 2020-01-24 06:23 | NUR ---
SHIFT SUMMARY: NO ACUTE CHANGES T/O SHIFT. PT IS ABLE TO WAKE UP AND FOLLOW SOME SIMPLE COMMANDS. VSS. PROPOFOL TURNED DOWN TO 25MCG AND PRECEDEX STARTED AND IS CURRENTLY AT 0.4MCG. PT TOLERATING WELL. WILL PASS REPORT TO ONCOMING SHIFT
[2020-01-24 07:07] LABS: HBSAG SCREEN Negative (Negative); HEP A AB, IGM Negative (Negative); HEP B CORE AB, IGM Negative (Negative); HEP C VIRUS AB <0.1 (0.0-0.9)
--- NOTE | 2020-01-24 07:41 | NUR ---
[place] of Care: Care assumed at 0700hr. Patient remains intubated and sedated. Propofol at 25mcg/kg/min and precedex at 0.4mcg/kg/hr. Unable to get patient to respond to noxious stimuli, precedex gtt then decreased to 0.2mcg/kg/min. Will continue to monitor level of sedation and titrate propofol and/or precedex gtt as indicated. VSS, spO2-97-98%. Vent to AC 20/500/16/55%, FiO2 then titrated down to 45%, spO2 remains 97%. Will discuss titrated down PEEP with Dr. Holman and RT this morning. OG to low intermittent suction, minimal amount of green bile noted in suction tubing, will discuss starting tube feeding with Dr. Holman this morning. Bilateral soft wrist restraints in place to protect lines, tubes, cords. Tan cath patent and intact, draining dark yellow, slightly cloudy urine. Will continue to monitor.
--- NOTE | 2020-01-24 18:07 | NUR ---
Shift Summary: No significant changes throughout shift. Patient unresponsive this morning, sedation decreased, and patient began to rouse. Moves all extremities spontaneously and able to follow command to nod head at times. Became agitated this evening, thrashing in bed, and thrashing head [id number]. Unable to verbally re-direct patient at that time, Propofol increased from 20 to 30 mcg/kg/min, and precedex later increased from 0.2mcg/kg/hr to 0.4mcg/kg/hr. Patient now appears calm and comfortable, but continues to rouse to verbal stimuli. Vent settings also improved throughout shift. FiO2 titrated down from 55 to 45% this morning, PEEP decreased from 16 to 12 throughout shift, spO2 remains greater than 92%. Will continue to monitor until report to NOC shift RN.
--- NOTE | 2020-01-24 20:00 | NUR ---
ASSUMED CARE: PT VERY SEDATED. WILL SLIGHTLY ROUSE TO NOXIOUS STIMULI. VSS. HEART MURMUR NOTED. LUNG SOUNDS COARSE AND DIM IN BASES. VENT SETTINGS 20/500/PEEP 12/FIO2 45%. SPO2 >90%. MINIMAL SECRETIONS. GAYTAN IN PLACE DRAINING CLOUDY URINE. PTS URINE IS BECOMING STOCK UNLOADER IN COLOR. SKIN IS RELATIVELY INTACT HOWEVER HE HAS RED RASHY AREA IN SKIN FOLDS UNDER PANNUS. [address] ON L ARM PATENT AND INFUSING. NS AT 75MLS/HR. PROPOFOL AT 30MCG AND PRECEDEX AT 0.4MCG. WILL TITRATE PROPOFOL DOWN TO LIGHTEN SEDATION. WILL CONTINUE TO MONITOR
[2020-01-24 20:44] LABS: Vancomycin, Trough 23.1 ug/mL (5.0-10.0)
[2020-01-25 03:38] LABS: BASOPHILS ABSOLUTE AUTO 0.01 K/mm3 (0.00-0.23); BASOPHILS PERCENT AUTO 0 % (0-2); EOSINOPHILS ABSOLUTE AUTO 0.03 K/mm3 (0.00-0.68); EOSINOPHILS PERCENT AUTO 0 % (0-6); Hematocrit 45.4 % (37.0-53.0); Hemoglobin 13.6 g/dL (13.5-17.5); IMMATURE GRAN ABSOLUTE AUTO 0.03 K/mm3 (0.00-0.10); IMMATURE GRAN PERCENT AUTO 0 % (0-1); LYMPHOCYTES ABSOLUTE AUTO 1.15 K/mm3 (0.84-5.20); LYMPHOCYTES PERCENT AUTO 13 % (21-46); MONOCYTES ABSOLUTE AUTO 0.41 K/mm3 (0.16-1.47); MONOCYTES PERCENT AUTO 5 % (4-13); Mean Corpuscular HGB 25.9 pg (26.0-34.0); Mean Corpuscular Volume 87 fL (80-100); Mean Platelet Volume 10.2 fL (9.1-12.4); NEUTROPHILS ABSOLUTE AUTO 7.32 K/mm3 (1.96-9.15); NEUTROPHILS PERCENT AUTO 82 % (41-73); NRBC ABSOLUTE 0.06 K/mm3 (0.00-0.02); NRBC Auto 0.7 /100 WBC (0.0-0.2); Platelet Count 196 K/mm3 (150-400); RDW Coefficient Variation 20.2 % (11.7-14.2); RDW Standard Deviation 61.4 fL (35.1-46.3); Red Blood Cell Count 5.25 M/mm3 (4.30-5.90); White Blood Cell Count 8.95 K/mm3 (4.00-11.30)
[2020-01-25 04:04] LABS: Magnesium, Blood 2.8 mg/dL (1.6-2.4)
[2020-01-25 04:06] LABS: Alanine Aminotransfer (ALT/SGP 1991 U/L (12-78); Albumin, Blood 2.8 g/dL (3.4-5.0); Albumin/Globulin Ratio 0.7 (0.8-1.8); Alk Phos 121 U/L (50-136); Anion Gap 4 mmol/L (6-16); Aspartate Aminotrans (AST/SGOT 684 U/L (12-37); Bilirubin, Total 1.2 mg/dL (0.1-1.0); Blood Urea Nitrogen 29 mg/dL (8-24); Bun/Creatinine Ratio 26.1 (12.0-20.0); CO2, Blood 28 mmol/L (21-32); Calcium, Blood 7.8 mg/dL (8.5-10.1); Chloride, Blood 110 mmol/L (98-108); Creatinine, Blood 1.11 mg/dL (0.60-1.20); Globulin, Blood 4.3 g/dL (2.2-4.0); Glomerular Filtration Rate >60 (60-); Glucose, Blood 94 mg/dL (70-99); Sodium, Blood 142 mmol/L (136-145); Total Protein, Blood 7.1 g/dL (6.4-8.2)
--- NOTE | 2020-01-25 05:46 | NUR ---
SHIFT SUMMARY: PT WASFAIRLY SEDATED AT BEGINNING OF SHIFT BUT PT DIDBECOME AGITATED AND WOKE UP MID SHIFT. SO SEDATION WAS TITRATED UP. PT IS CURRENTLY ON A SLIGHT SEDATION VACATION. PRECEDEX IS AT 0.4 AND PROPOFOL IS AT 25. LUNG SOUNDS ARE COARSE. SPO2 >90% PT IS HAVING MINIMAL SECRETIONS AT THIS TIME. SBP IS SLIGHTLY ELEVATED. HR IN THE 70S. IN SR. PT HAD A SMALL SMEAR BM. GAYTAN IN PLACE DRAINING MOD AMT OF URINE. STILL CLOUDY. PT GOT A FULL BED BATH DURING NOC SHIFT. WILL PASS REPORT TO ONCOMING SHIFT
--- NOTE | 2020-01-25 08:15 | NUR ---
ASSESSMENT- PT SEDATED WITH PROPOFOL AT 25 MCG/KG/MIN AND PRECEDEX AT 0.4 MCG/KG/HR. ORALLY INTUBATED, TUBE SECURE. TOLERATING VENT SETTINGS. PERRL. NO RESPONSE TO COMMANDS, MOVES ARMS SPONTANEOUSLY, PULLS AGAINST RESTRAINTS. REPOSITIONED. LUNGS CLEAR, DIMINISHED BASES. APICAL REGULAR, NSR. BP STABLE. OGT WITH GREEN BILE DRAINAGE 200 CC IN CANISTER. ABDOMEN LARGE, FIRM. UO VIA GAYTAN-CLOUDY YELLOW. PIV X 2 INTACT. NS AT 75 CC/HR. ON PRECAUTIONS FOR MRSA SPUTUM.
--- NOTE | 2020-01-25 09:22 | NUR ---
DR NICKERSON HERE-UPDATED.
--- NOTE | 2020-01-25 10:21 | NUR ---
PT SITTING UP EATING NOW. C/O PAIN WITH MOVEMENT. WILL HAVE CT WHEN AVAILABLE.
--- NOTE | 2020-01-25 12:17 | NUR ---
PT WITH STABLE VS. RESTLESS, PULLING AT RESTRAINTS, POSITIONAL ETT CUFF LEAK. UNABLE TO FOLLOW ANY DIRECTIONS. NEEDED TO INCREASE PROPOFOL TO 30 MCG/KG/MIN WITHOUT IMPROVEMENT THEN INCREASED PRECEDEX TO 0.5 MCG/KG/HR AND NOW SEDATED AND NOT PULLING AT LINES. RIGHT UPPER ARM POWER GLIDE INSERTED BY MIKHAIL BELLE, SITE INTACT. NS AT 75 CC/HR
--- NOTE | 2020-01-25 12:39 | NUR ---
FAMILY CONTACT-- PT'S SON DELORIS CALLED. UPDATED. STATES PLEASE CALL WITH ANY CHANGES. STATES PER CONVERSATION WITH HIS DAD BEFORE THAT AARON WOULD NOT WANT A TRACHEOSTOMY.
--- NOTE | 2020-01-25 15:26 | NUR ---
VITAL HIGH PROTEIN TUBE FEEDING STARTED VIA OGT, HAD DRAINED 300 CC BILE DRAINAGE. OXYGEN SATURATIONS STABLE, FIO2 AT 40%. NSR. PRECEDEX AT 0.5 MCG/KG/HR FOR SEDATION WITH PROPOFOL AT 30 MCG/KG/MIN.
--- NOTE | 2020-01-25 17:32 | NUR ---
DR. BOSTON HERE-UPDATED. MONITOR OXYGEN SATURATIONS, INCREASE PEEP BACK TO 12 IF NECESSARY TO MAINTAIN SATURATIONS. OXYGEN SATS 90% NOW ON 40%. DID AWAKEN, ABLE TO NOD HEAD, ATTEMPTING TO PULL AT TUBES, REPOSITIONED, TURNED FOR LINEN CHANGE. TOLERATED WELL. NSR. NS AT 75 CC/HR. TUBE FEEDING INFUSING. UO GOOD.
--- NOTE | 2020-01-25 19:35 | NUR ---
ASSESSMENT/ASSUMED CARE PT INTUBATED AND ON [facility] VENT. VENT SETTINGS AC 20 TV 500 PEEP 10 FIO2 40%. LUNGS CLEAR BUT DECREASED IN THE BASES. SUCTIONED SMALL AMT WHITE SECRECTION VIA ET TUBE PER RT. HEART RATE REGULAR. BP STABLE. SCD TO LEFT LOWER EXT. BT+ HYPOACTIVE. OG WITH TUBE FEED VITAL HP AT 25 ML/HR WITH WATER 30 ML Q4HRS. RESIDUAL ZERO. IV 18G TO LEFT AC WITH NS AT 75 ML/HR, SITE CLEAR. IV 18G TO FOREARM SALINE LOCKED, SITE CLEAR. POWER GLIDE TO LEFT UPPER ARM WITH PROPOFOL AT 30 MCQ/KG/MIN AND PRECEDEX AT 0.5 MCQ/KG/MIN, SITE CLEAR. GAYTAN CATH PATENT DRAINING DARK KRISTINE URINE. REPOSTIONED TO BACK FOR BED CPT. BILAT SOFT WRIST RESTRAINT ON. RIGHT AKA WELL HEALED. PT OPENS EYES BRIEFLY TO ORAL CARE. NOT FOLLOWING INSTRUCTIONS. BACK TO SLEEP QUICKLY WHEN UNDISTURBED
--- NOTE | 2020-01-25 23:50 | NUR ---
REASSESSMENT PT CONT INTUBATED AND ON MECH VENT. LUNGS COARSE BUT CLEAR AND DECREASED IN THE BASES AFTER SUCTIONING. NO VENT CHANGES. ORAL CARE DONE AND PT REPOSITIONED. RESIDUAL ZERO. INCREASED TUBE FEED TO GOAL RATE OF 45 ML/HR.
--- NOTE | 2020-01-26 00:36 | NUR ---
PAIN PT WAKING UP. SHAKING HEAD FROM SIDE TO SIDE. SUCTIONED SMALL AMT VIA ET TUBE. WHEN ASKED IF IN PAIN PT NODS "YES". MED WITH FENTANYL 50 MCQ.
[2020-01-26 04:03] LABS: BASOPHILS ABSOLUTE AUTO 0.02 K/mm3 (0.00-0.23); BASOPHILS PERCENT AUTO 0 % (0-2); EOSINOPHILS ABSOLUTE AUTO 0.08 K/mm3 (0.00-0.68); EOSINOPHILS PERCENT AUTO 1 % (0-6); Hemoglobin 13.3 g/dL (13.5-17.5); IMMATURE GRAN ABSOLUTE AUTO 0.02 K/mm3 (0.00-0.10); IMMATURE GRAN PERCENT AUTO 0 % (0-1); LYMPHOCYTES ABSOLUTE AUTO 0.95 K/mm3 (0.84-5.20); LYMPHOCYTES PERCENT AUTO 14 % (21-46); MONOCYTES PERCENT AUTO 5 % (4-13); Mean Corpuscular HGB 26.1 pg (26.0-34.0); Mean Corpuscular HGB Conc 30.2 g/dL (31.5-36.5); Mean Corpuscular Volume 86 fL (80-100); Mean Platelet Volume 10.4 fL (9.1-12.4); NEUTROPHILS ABSOLUTE AUTO 5.36 K/mm3 (1.96-9.15); NEUTROPHILS PERCENT AUTO 80 % (41-73); NRBC ABSOLUTE 0.04 K/mm3 (0.00-0.02); NRBC Auto 0.6 /100 WBC (0.0-0.2); Platelet Count 198 K/mm3 (150-400); RDW Coefficient Variation 19.8 % (11.7-14.2); RDW Standard Deviation 62.4 fL (35.1-46.3); White Blood Cell Count 6.73 K/mm3 (4.00-11.30)
[2020-01-26 04:19] LABS: Anion Gap 2 mmol/L (6-16); Blood Urea Nitrogen 24 mg/dL (8-24); Bun/Creatinine Ratio 22.4 (12.0-20.0); CO2, Blood 29 mmol/L (21-32); Calcium, Blood 7.7 mg/dL (8.5-10.1); Chloride, Blood 113 mmol/L (98-108); Creatinine, Blood 1.07 mg/dL (0.60-1.20); Glomerular Filtration Rate >60 (60-); Glucose, Blood 93 mg/dL (70-99); Magnesium, Blood 2.6 mg/dL (1.6-2.4); Phosphorus, Blood 4.1 mg/dL (2.5-4.9); Sodium, Blood 144 mmol/L (136-145)
--- NOTE | 2020-01-26 04:37 | NUR ---
TEMP TEMP UP TO 100.2 VIA GAYTAN TEMP PROBE. COOL CLOTH TO FOREHEAD, FAN ON PT, AND TEMP IN ROOM DECREASED. BLANKETS OFF
[2020-01-26 05:24] LABS: PCO2 Arterial 41.4 mmHg (35-45); PO2 Arterial 57.8 mmHg (80-100); pH Blood Arterial 7.45 (7.35-7.45)
--- NOTE | 2020-01-26 05:57 | NUR ---
SHIFT SUMMARY PT CONT ON VENT. CURRENT VENT SETTINGS AC 20 TV 500 PEEP 10 FIO2 INCREASED FROM 40% TO 50% AFTER ABD THIS AM. LUNGS COARSE BUT CLEAR AND DECREASED IN THE BASES AFTER SUCTIONING. SUCTIONING SMALL AMT WHITE SECRECTIONS VIA ET TUBE. HEART RATE REGULAR IN THE 60-70'S. BP STABLE. BT+ ABD ROUND/OBESE. OG WITH TUBE FEED VITAL HP AT GOAL RATE OF 45 ML/HR AND WATER 30 ML Q4HRS. MIN RESIDUAL DURING THE NIGHT. NO STOOL. BILAT SOFT WRIST RESTRAINTS ON. BEDBATH DONE. PT TURNED Q2HRS. GAYTAN PATENT DRAINING DARK KRISTINE URINE. PT SEDATED WITH PROPOFOL AT 30 MCQ/KG/MIN DOWN TO 25 MCQ/KG/MIN AND PRECEDEX AT 0.5 MCQ/KG/MIN. PT MED ONCE DURING THE NIGHT WITH FENTANYL 50 MCQ FOR RESTLESSNESS WITH GOOD RESULTS. REPORT TO ON COMING NURSE
--- NOTE | 2020-01-26 08:30 | NUR ---
ASSESSMENT- DR. BOSTON HERE-PT CHANGED TO PEEP 14, PLANS TO D/C PRECEDEX, USE PROPOFOL FOR SEDATION. IN CHAIR POSITION TO ASSIST WITH LUNG VENTILATION. PT ORALLY INTUBATED, TUBE SECURE. TOLERATING VENT SETTINGS, OXYGEN SATURATIONS 90-91%. LUNGS CLEAR, DIMINISHED BASES. SEDATED, PROPOFOL AT 40 MCG/KG/MIN. BILATERAL WRIST RESTRAINTS TO MAINTAIN LINES. IV NS AT 75 CC/HR VIA POWER GLIDE. TWO PIV INTACT LEFT ARM. ABDOMEN LARGE, SEMIFIRM, TUBE FEEDING VIA OGT AT GOAL 45 CC/HR VITAL HIGH PROTEIN, RESIDUAL 10 CC REPLACED. UO VIA GAYTAN ADEQUATE. REPOSITIONED, AM CARE DONE.
--- NOTE | 2020-01-26 10:24 | NUR ---
PT AWAKENS TO NAME, SHAKES HEAD, DOESN'T FOLLOW ANY DIRECTIONSM, RESTLESS. REPOSITIONED WITH IMPROVEMENT.
--- NOTE | 2020-01-26 11:20 | NUR ---
PT LIGHTLY SEDATED, ATTEMPTS TO OPEN EYES TO NAME. VSS. SATURATIONS IMPROVED TO 92%. BLOOD SUGAR STABLE. TOLERATING TUBE FEEDING
--- NOTE | 2020-01-26 12:02 | NUR ---
OXYGEN SATURATIONS 87%-NEED TO INCREASE FIO2 TO 55%. PT'S SON CALLED-UPDATE GIVEN. PT AWAKE, RX FOR S/S PAIN. DR. MUNOZTRATE HERE-UPDATED
--- NOTE | 2020-01-26 12:49 | NUR ---
PT RESTLESS, INCREASED PROPOFOL FOR SEDATION AND VENT TOLERANCE.
--- NOTE | 2020-01-26 17:10 | NUR ---
Initial spiritual care note: Per family request, I prayed for Nicho at bedside. Provided calm, loving presence. I will remain available to pt/family emotional needs.
--- NOTE | 2020-01-26 18:01 | NUR ---
PT TOLERATING VENT SETTINGS WITH SATURATIONS 93-95%. SEDATE, CALM AFTER FENTANYL RX. PROPOFOL AT 50 MCG/KG/MIN FOR SEDATION. TUBE FEEDING AT GOAL RATE OF 30 CC/HR. BP STABLE. BILATERAL WRIST RESTRAINTS FOR SAFETY TO PREVENT EXTUBATION-DOES PULL AT LINES WHEN RESTLESS. BLACKBURN. CONTINUE TO MONITOR
--- NOTE | 2020-01-26 21:19 | NUR ---
ASSUMED CARE AT 1900 PT LAYING IN BED IN CHAIR POSITION. REMAINS INTUBATED. PROPOFOL 50MCG/KG/MIN. VHP VIA OG 30ML/HR, THIS IS GOAL RATE. GAYTAN PATENT AND DRAINING. POWERGLIDE TO LT UPPER ARM. SEE SHIFT ASSESSMENT FOR FULL ASSESSMENT.
[2020-01-27 04:25] LABS: PCO2 Arterial 46.3 mmHg (35-45); PO2 Arterial 71.2 mmHg (80-100)
[2020-01-27 04:33] LABS: BASOPHILS ABSOLUTE AUTO 0.02 K/mm3 (0.00-0.23); BASOPHILS PERCENT AUTO 0 % (0-2); EOSINOPHILS ABSOLUTE AUTO 0.33 K/mm3 (0.00-0.68); EOSINOPHILS PERCENT AUTO 5 % (0-6); Hematocrit 42.6 % (37.0-53.0); Hemoglobin 12.6 g/dL (13.5-17.5); IMMATURE GRAN ABSOLUTE AUTO 0.03 K/mm3 (0.00-0.10); IMMATURE GRAN PERCENT AUTO 1 % (0-1); LYMPHOCYTES ABSOLUTE AUTO 1.17 K/mm3 (0.84-5.20); LYMPHOCYTES PERCENT AUTO 19 % (21-46); MONOCYTES ABSOLUTE AUTO 0.34 K/mm3 (0.16-1.47); MONOCYTES PERCENT AUTO 5 % (4-13); Mean Corpuscular HGB 25.8 pg (26.0-34.0); Mean Corpuscular HGB Conc 29.6 g/dL (31.5-36.5); Mean Corpuscular Volume 87 fL (80-100); Mean Platelet Volume 9.9 fL (9.1-12.4); NEUTROPHILS ABSOLUTE AUTO 4.45 K/mm3 (1.96-9.15); NEUTROPHILS PERCENT AUTO 70 % (41-73); NRBC ABSOLUTE 0.02 K/mm3 (0.00-0.02); NRBC Auto 0.3 /100 WBC (0.0-0.2); Platelet Count 193 K/mm3 (150-400); RDW Coefficient Variation 19.8 % (11.7-14.2); RDW Standard Deviation 63.2 fL (35.1-46.3); Red Blood Cell Count 4.89 M/mm3 (4.30-5.90); White Blood Cell Count 6.34 K/mm3 (4.00-11.30)
[2020-01-27 04:57] LABS: Alanine Aminotransfer (ALT/SGP 983 U/L (12-78); Albumin, Blood 2.4 g/dL (3.4-5.0); Albumin/Globulin Ratio 0.6 (0.8-1.8); Alk Phos 108 U/L (50-136); Anion Gap 3 mmol/L (6-16); Aspartate Aminotrans (AST/SGOT 212 U/L (12-37); Bilirubin, Total 1.7 mg/dL (0.1-1.0); Blood Urea Nitrogen 26 mg/dL (8-24); Bun/Creatinine Ratio 24.1 (12.0-20.0); CO2, Blood 29 mmol/L (21-32); Chloride, Blood 113 mmol/L (98-108); Creatinine, Blood 1.08 mg/dL (0.60-1.20); Globulin, Blood 4.2 g/dL (2.2-4.0); Glomerular Filtration Rate >60 (60-); Glucose, Blood 82 mg/dL (70-99); Magnesium, Blood 2.5 mg/dL (1.6-2.4); Phosphorus, Blood 4.3 mg/dL (2.5-4.9); Potassium, Blood 4.4 mmol/L (3.5-5.5); Sodium, Blood 145 mmol/L (136-145); Total Protein, Blood 6.6 g/dL (6.4-8.2)
--- NOTE | 2020-01-27 06:02 | NUR ---
END OF SHIFT SUMMARY PT REMAINED INTUBATED. PROPOFOL BETWEEN 50-70MCG/KG/MIN. FENTANYL GIVEN PRN X7 DOSES ADJUNCT TO SEDATION. GAYTAN PATENT AND DRAINING TO GRAVITY. TUBE FEEDING AT GOAL RATE OF 30. NS AT 75ML/HR PER ORDER. VS STABLE. WILL REPORT TO ONCOMING RN WHEN AVAILABLE.
--- NOTE | 2020-01-27 07:30 | NUR ---
ASSUMED CARE BEDSIDE REPORT RECIEVED. PT IS LAYING IN BED INTUBATED AND SEDATED. VENT SETTINGS AC 20, TV 500, PEEP 14, FIO2 55%. PT WITH OCCASIONAL COUGH. GAG NOTED WITH ORAL SUCTION. PT RESTLESS AND FIGHTING THE VENT AT TIMES. PT NOT FOLLOWING COMMANDS AT THIS TIME. PT BLACKBURN. PT SEDATED WITH PROPOFOL AT 60 MCG/KG/MIN. NS INFUSING AT 75 ML/HR. PT WITH OGT IN PLACE WITH TF INFUSING AT 30 ML/HR GOAL RATE. GAYTAN IN PLACE WITH YELLOW OUTPUT WITH SEDIMENT NOTED. SBW RESTRAINTS IN PLACE. RIGHT AKA NOTED. VITAL SIGNS STABLE. WILL CONTINUE TO MONITOR.
--- NOTE | 2020-01-27 18:52 | NUR ---
SHIFT SUMMARY NO ACUTE CHANGES THIS SHIFT. PT REMAINS INTUBATED AND SEDATED. PT WITH PERIODS OF RESTLESSNESS AND AGITATION. PT SEDATED WITH PROPOFOL AT 60 MCG/KG/MIN. PT MED WITH FENTANYL PER EMAR PRN FOR SEDATION ADJUNCT. PICC TO MATRA IS C/D/I. POWERGLIDE TO HIEU C/D/I. NS INFUSING AT 75 ML/HR. VENT SETTINGS UNCHANGED AT AC 20, TV 500, PEEP 16, FIO2 55%. PT WITH COPIOUS ORAL SECRETIONS. OGT IN PLACE WITH TF AT 20 ML/HR GOAL RATE. MINIMAL RESIDUALS NOTED. GAYTAN REMAINS IN PLACE WITH DARK YELLOW URINE OUTPUT WITH SEDIMENT. SBW RESTRAINTS REMAIN IN PLACE. VITAL SIGNS HAVE REMAINED STABLE. WILL CONTINUE TO MONITOR AND REPORT OFF TO ONCOMING RN.
--- NOTE | 2020-01-27 22:06 | NUR ---
ASSUMED CARE AT 1900 PT LAYING IN BED AND INTUBATED. VENT SETTINGS AC 20, TV 500, PEEP 16, FIO2 50%. PROPOFOL INFUSING AT 60MCG/KG/MIN. VHP VIA OG AT GOAL RATE OF 20ML/HR WITH WATER FLUSH 30ML Q4HR. GAYTAN PATENT AND DRAINING TO GRAVITY. SEE SHIFT ASSESSMENT FOR FULL ASSESSMENT.
[2020-01-28 03:58] LABS: BASOPHILS ABSOLUTE AUTO 0.02 K/mm3 (0.00-0.23); BASOPHILS PERCENT AUTO 0 % (0-2); EOSINOPHILS ABSOLUTE AUTO 0.37 K/mm3 (0.00-0.68); EOSINOPHILS PERCENT AUTO 6 % (0-6); Hematocrit 41.1 % (37.0-53.0); Hemoglobin 12.3 g/dL (13.5-17.5); IMMATURE GRAN ABSOLUTE AUTO 0.02 K/mm3 (0.00-0.10); IMMATURE GRAN PERCENT AUTO 0 % (0-1); LYMPHOCYTES ABSOLUTE AUTO 0.84 K/mm3 (0.84-5.20); LYMPHOCYTES PERCENT AUTO 14 % (21-46); MONOCYTES ABSOLUTE AUTO 0.33 K/mm3 (0.16-1.47); MONOCYTES PERCENT AUTO 5 % (4-13); Mean Corpuscular HGB 26.1 pg (26.0-34.0); Mean Corpuscular HGB Conc 29.9 g/dL (31.5-36.5); Mean Corpuscular Volume 87 fL (80-100); Mean Platelet Volume 10.3 fL (9.1-12.4); NEUTROPHILS ABSOLUTE AUTO 4.62 K/mm3 (1.96-9.15); NEUTROPHILS PERCENT AUTO 75 % (41-73); Platelet Count 176 K/mm3 (150-400); RDW Coefficient Variation 19.7 % (11.7-14.2); RDW Standard Deviation 63.3 fL (35.1-46.3); Red Blood Cell Count 4.71 M/mm3 (4.30-5.90)
[2020-01-28 04:18] LABS: Alanine Aminotransfer (ALT/SGP 719 U/L (12-78); Albumin, Blood 2.4 g/dL (3.4-5.0); Albumin/Globulin Ratio 0.6 (0.8-1.8); Alk Phos 102 U/L (50-136); Anion Gap 1 mmol/L (6-16); Aspartate Aminotrans (AST/SGOT 114 U/L (12-37); Bilirubin, Total 1.8 mg/dL (0.1-1.0); Blood Urea Nitrogen 21 mg/dL (8-24); Bun/Creatinine Ratio 23.5 (12.0-20.0); CO2, Blood 29 mmol/L (21-32); Calcium, Blood 7.9 mg/dL (8.5-10.1); Chloride, Blood 112 mmol/L (98-108); Glomerular Filtration Rate >60 (60-); Glucose, Blood 82 mg/dL (70-99); Magnesium, Blood 2.2 mg/dL (1.6-2.4); Phosphorus, Blood 3.8 mg/dL (2.5-4.9); Potassium, Blood 4.3 mmol/L (3.5-5.5); Sodium, Blood 142 mmol/L (136-145); Total Protein, Blood 6.4 g/dL (6.4-8.2); Triglycerides 185 mg/dL (30-160)
[2020-01-28 05:00] LABS: PCO2 Arterial 46.9 mmHg (35-45); PO2 Arterial 52.1 mmHg (80-100); pH Blood Arterial 7.39 (7.35-7.45)
--- NOTE | 2020-01-28 06:19 | NUR ---
END OF SHIFT SUMMARY PT INTUBATED. VENT SETTINGS AC 20, TV 500, PEEP 16, FIO2 55%. PROPOFOL INFUSING AT 60MCG/KG/MIN. NS INFUSING 75ML/MIN. VHP VIA OG AT GOAL OF 20ML/HR WITH 30ML FLUSHES Q4HRS. MEDICATED WITH FENTANYL X5 ADJUNCT WITH SEDATION. GAYTAN PATENTENT AND DRAINING TO GRAVITY. WILL GIVE REPORT TO AM RN WHEN AVAILABLE.
--- NOTE | 2020-01-28 07:52 | NUR ---
ASSUMED CARE BEDSIDE REPORT RECIEVED. PT IS LAYING IN BED INTUBATED AND SEDATED. VENT SETTINGS AC 20, TV 500, PEEP 14, FIO2 55%. PT WITH OCCASIONAL COUGH AND MINIMAL ETT SECRETIONS AT THIS TIME. PT NOT FOLLOWING COMMANDS AT THIS TIME. PT SEDATED WITH PROPOFOL AT 60 MCG/KG/MIN. PICC TO MARTA C/D/I, NS INFUSING AT 75 ML/HR. OGT IN PLACE WITH TF AT 20 ML/HR. GAYTAN IN PLACE WITH DARK YELLOW OUTPUT NOTED. RIGHT AKA NOTED. SBW RESTRAINTS IN PLACE. PT WITH PERIODS OF RESTLESSNESS AND PULLING AT RESTRAINTS. VITAL SIGNS STABLE. WILL CONTINUE TO MONITOR.
--- NOTE | 2020-01-28 09:27 | NUR ---
SEDATION PT CONTINUES TO REQUIRE HIGH DOSES OF FENTANYL PRN AND PROPOFOL TO SEDATE PT. DISCUSSED WITH DR BOSTON, ORDERS RECIEVED TO START PRECEDEX ADJUNCT FOR SEDATION.
--- NOTE | 2020-01-28 11:14 | NUR ---
Pt resting in bed and is intubated. Spoke with Bedside BARBRA Vitale and discussed case. Pt's condition remains the same and is still requiring significant vent support. Palliative Care will remain available for supportive and therapeutic visits.
--- NOTE | 2020-01-28 17:34 | NUR ---
SHIFT SUMMARY NO ACUTE CHANGES. PT REMAINS INTUBATED AND SEDATED. VENT SETTINGS UNCHANGED, AC 20, TV 500, PEEP 16, FIO2 55%. PT WITH MINIMAL ETT SECRETIONS THROUGHOUT THE DAY. OGT REMAINS IN PLACE WITH TF AT 20 ML/HR GOAL RATE. MINIMAL RESIDUALS NOTED. PICC TO MARTA C/D/I WITH NS INFUSING TKO, PROPOFOL AT 35 MCG/KG/MIN, AND PRECEDEX AT 0.5 MCG/KG/MIN. PT WITH IMPROVED SEDATION CONTROL SINCE STARTING PRECEDEX GTT. GAYTAN REMAINS IN PLACE WITH DARK GREEN URINE OUTPUT. SBW RESTRAINTS REMAIN IN PLACE. WITH WITH LESS AGITATION/RESTLESSNESS THIS AFTERNOON. VITAL SIGNS STABLE. WILL CONTINUE TO MONITOR AND REPORT OFF TO ONCOMING RN.
[2020-01-29 04:08] LABS: BASOPHILS ABSOLUTE AUTO 0.02 K/mm3 (0.00-0.23); BASOPHILS PERCENT AUTO 0 % (0-2); EOSINOPHILS ABSOLUTE AUTO 0.36 K/mm3 (0.00-0.68); EOSINOPHILS PERCENT AUTO 5 % (0-6); Hematocrit 45.5 % (37.0-53.0); Hemoglobin 13.5 g/dL (13.5-17.5); IMMATURE GRAN ABSOLUTE AUTO 0.03 K/mm3 (0.00-0.10); IMMATURE GRAN PERCENT AUTO 0 % (0-1); LYMPHOCYTES ABSOLUTE AUTO 1.33 K/mm3 (0.84-5.20); LYMPHOCYTES PERCENT AUTO 20 % (21-46); MONOCYTES ABSOLUTE AUTO 0.36 K/mm3 (0.16-1.47); MONOCYTES PERCENT AUTO 5 % (4-13); Mean Corpuscular HGB 25.4 pg (26.0-34.0); Mean Corpuscular HGB Conc 29.7 g/dL (31.5-36.5); Mean Corpuscular Volume 86 fL (80-100); Mean Platelet Volume 9.5 fL (9.1-12.4); NEUTROPHILS ABSOLUTE AUTO 4.69 K/mm3 (1.96-9.15); NEUTROPHILS PERCENT AUTO 69 % (41-73); Platelet Count 178 K/mm3 (150-400); RDW Coefficient Variation 19.5 % (11.7-14.2); RDW Standard Deviation 60.2 fL (35.1-46.3); Red Blood Cell Count 5.32 M/mm3 (4.30-5.90); White Blood Cell Count 6.79 K/mm3 (4.00-11.30)
[2020-01-29 04:29] LABS: Alanine Aminotransfer (ALT/SGP 577 U/L (12-78); Albumin, Blood 2.7 g/dL (3.4-5.0); Albumin/Globulin Ratio 0.6 (0.8-1.8); Alk Phos 127 U/L (50-136); Anion Gap 3 mmol/L (6-16); Aspartate Aminotrans (AST/SGOT 81 U/L (12-37); Bilirubin, Total 1.8 mg/dL (0.1-1.0); Blood Urea Nitrogen 21 mg/dL (8-24); Bun/Creatinine Ratio 20.4 (12.0-20.0); CO2, Blood 29 mmol/L (21-32); Calcium, Blood 8.4 mg/dL (8.5-10.1); Chloride, Blood 110 mmol/L (98-108); Creatinine, Blood 1.03 mg/dL (0.60-1.20); Globulin, Blood 4.6 g/dL (2.2-4.0); Glomerular Filtration Rate >60 (60-); Glucose, Blood 101 mg/dL (70-99); Magnesium, Blood 2.2 mg/dL (1.6-2.4); Phosphorus, Blood 4.5 mg/dL (2.5-4.9); Potassium, Blood 4.5 mmol/L (3.5-5.5); Sodium, Blood 142 mmol/L (136-145); Total Protein, Blood 7.3 g/dL (6.4-8.2)
[2020-01-29 04:35] LABS: PCO2 Arterial 43.8 mmHg (35-45); PO2 Arterial 84.4 mmHg (80-100); pH Blood Arterial 7.41 (7.35-7.45)
--- NOTE | 2020-01-29 05:48 | NUR ---
SHIFT SUMMARY PATIENT SLEPT WELL THROUGH THE NIGHT. TURNED EVERY 2 HOURS, MAINTAINED TUBE FEED AND FREE WATER FLUSHES. NO ACUTE CHANGES OVERNIGHT. ASSESSMENT IS CHARTED. VSS. WILL CONTINUE TO MONITOR.
--- NOTE | 2020-01-29 08:55 | NUR ---
ASSUMED CARE OF PT AT 0700. REPORT FROM SRI BELLE. PT INTUBATED AND SEDATED. PROPOFOL INFUSING AT 35 MCG/KG/MIN AND PRECEDEX AT 0.6 MCG/KG/HR. PT FOLLOWS SIMPLE DIRECTIONS, ATTEMPTED TO OPEN EYES, SQUEEZES HANDS BILATERALLY. VENT SETTINGS AC 20/500/16/55%. O2 SATS LOW 90'S. LUNGS COARSE IN UPPER LOBES, DIMINISHED IN BASES. PT P/W/D. NSR ON MONITOR, RATE 60-70'S. BP STABLE. VHP AT GOAL OF 20 ML/HR c 30 ML FLUSH q4 HR. RESIDUALS 220 ML THIS AM. HYPOACTIVE BT. ABD ROUND, FIRM. TEMP PROBE GAYTAN IN PLACE, DRAINING CLEAR, YELLOW/GREEN URINE TO GRAVITY. TEMP 99.7. 2+ EDEMA TO LLE. WILL CONTINUE TO MONITOR.
--- NOTE | 2020-01-29 17:12 | NUR ---
SHIFT SUMMARY PT REMAINS INTUBATED AND SEDATED. VENT SETTINGS UNCHANGED, AC 20/500/16/55%. O2 SATS 85-95% THIS SHIFT. LUNGS CLEAR, DIMINISHED IN LOWER LOBES. SCANT SECRETIONS THROUGH ETT. COUGH AND GAG REFLEX PRESENT. BED CPT THIS SHIFT. PROPOFOL INFUSING AT 35 MCG/KG/MIN AND PRECEDEX AT 0.6 MCG/KG/HR. PT RESPONSES TO VERBAL STIMULI, FOLLOWS SIMPLE COMMANDS. FENTANYL GIVEN PRN. TUBE FEEDINGS INCREASED TO 25 MG/HR, RESIDUALS 190-220 ML THIS SHIFT. PT DIURESED THIS SHIFT, 4050 ML OUT THIS SHIFT. TMAX 100.0. PT c INCREASED SWELLING TO FACE, DR CHOUDHARY AWARE. WILL CONTINUE TO MONITOR FOR EYE LID SWELLING. BED BATH COMPLETED THIS SHIFT. WILL CONTINUE TO MONITOR UNTIL REPORT TO ONCOMING NURSE.
[2020-01-30 03:40] LABS: BASOPHILS ABSOLUTE AUTO 0.03 K/mm3 (0.00-0.23); BASOPHILS PERCENT AUTO 1 % (0-2); EOSINOPHILS ABSOLUTE AUTO 0.32 K/mm3 (0.00-0.68); EOSINOPHILS PERCENT AUTO 5 % (0-6); Hematocrit 44.5 % (37.0-53.0); Hemoglobin 13.3 g/dL (13.5-17.5); IMMATURE GRAN ABSOLUTE AUTO 0.02 K/mm3 (0.00-0.10); IMMATURE GRAN PERCENT AUTO 0 % (0-1); LYMPHOCYTES ABSOLUTE AUTO 1.33 K/mm3 (0.84-5.20); LYMPHOCYTES PERCENT AUTO 22 % (21-46); MONOCYTES ABSOLUTE AUTO 0.38 K/mm3 (0.16-1.47); MONOCYTES PERCENT AUTO 6 % (4-13); Mean Corpuscular HGB 25.4 pg (26.0-34.0); Mean Corpuscular HGB Conc 29.9 g/dL (31.5-36.5); Mean Corpuscular Volume 85 fL (80-100); NEUTROPHILS ABSOLUTE AUTO 4.09 K/mm3 (1.96-9.15); NEUTROPHILS PERCENT AUTO 66 % (41-73); Platelet Count 199 K/mm3 (150-400); RDW Coefficient Variation 19.1 % (11.7-14.2); RDW Standard Deviation 59.7 fL (35.1-46.3); Red Blood Cell Count 5.24 M/mm3 (4.30-5.90); White Blood Cell Count 6.17 K/mm3 (4.00-11.30)
[2020-01-30 04:00] LABS: Alanine Aminotransfer (ALT/SGP 415 U/L (12-78); Albumin, Blood 2.6 g/dL (3.4-5.0); Albumin/Globulin Ratio 0.6 (0.8-1.8); Alk Phos 131 U/L (50-136); Anion Gap 3 mmol/L (6-16); Aspartate Aminotrans (AST/SGOT 55 U/L (12-37); Bilirubin, Total 1.6 mg/dL (0.1-1.0); Blood Urea Nitrogen 23 mg/dL (8-24); Bun/Creatinine Ratio 22.8 (12.0-20.0); CO2, Blood 31 mmol/L (21-32); Calcium, Blood 8.4 mg/dL (8.5-10.1); Chloride, Blood 109 mmol/L (98-108); Creatinine, Blood 1.01 mg/dL (0.60-1.20); Globulin, Blood 4.6 g/dL (2.2-4.0); Glomerular Filtration Rate >60 (60-); Glucose, Blood 90 mg/dL (70-99); Magnesium, Blood 2.1 mg/dL (1.6-2.4); Phosphorus, Blood 4.2 mg/dL (2.5-4.9); Sodium, Blood 143 mmol/L (136-145); Total Protein, Blood 7.2 g/dL (6.4-8.2)
--- NOTE | 2020-01-30 05:14 | NUR ---
SHIFT SUMMARY AROUND 03:45 THIS AM PT. DESATURATED TO ABOUT 82%. LUNG SOUNDS UNCHANGED, NOTHING ABLE TO BE SUCTIONED. INCREASED FIO2 TO 100% ON VENTILATOR. INCREASED SEDATION, NO REAL CHANGE IN SPO2. CALLED RT, PERFORMED CPT, NOTHING ABLE TO BE SUCTIONED. CALLED DR. CHOUDHARY, INCREASED PEEP TO 18 AND CHANGED TO PRESSURE CONTROL MODE. SPO2 IMPROVING. ASSESSMENT IS CHARTED. VSS. WILL CONTINUE TO MONITOR.
--- NOTE | 2020-01-30 08:38 | NUR ---
ASSUMED CARE OF PT AT 0700. REPORT FROM SRI BELLE. PT INTUBATED AND SEDATED. VENT SETTINGS PC 20/500/18/95%. PROPOFOL INFUSING AT 45 MCG/KG/MIN AND PRECEDEX AT 0.6 MCG/KG/HR. O2 SATS RANGE FROM 82-92% DEPENDANT ON SITE OF PROBE. WILL DISCUSS CORRELATION c ABG c DR CHOUDHARY. LUNGS CLEAR IN UPPER LOBES, DIMINISHED IN BASES. SCANT AMOUNT OF CLEAR SECRETIONS THROUGH ETT. COUGH AND GAG REFLEX PRESENT. DECREASED PROPOFOL TO 30 MCG/KG/MIN, PT BECAME AGITATED, COUGHING. VOMITED AROUND ETT, SUCTIONED AND PROVIDED ORAL CARE. INCREASED PROPOFOL TO 40 MCG/KG/MIN. PLACED PT IN FOWLERS TO ATTEMPT AND INCREASE O2 SATS, CURRENT O2 SATS HIGH 80'S. NSR ON MONITOR, RATE 60'S. BP STABLE. VHP AT 25 ML/HR c 30ML FLUSH q4HR. GAYTAN PATENT, DRAINING CLEAR YELLOW URINE TO GRAVITY. 2+ EDEMA TO LEFT LOWER LEG. WILL CONTINUE TO MONITOR.
[2020-01-30 11:25] LABS: PCO2 Arterial 42.9 mmHg (35-45); PO2 Arterial 91.7 mmHg (80-100); pH Blood Arterial 7.43 (7.35-7.45)
--- NOTE | 2020-01-30 17:47 | NUR ---
SHIFT SUMMARY PT REMAINS INTUBATED AND SEDATED, VENT SETTINGS, PS, 20/20/60%. PROPOFOL INFUSING AT 40 MCG/KG/MIN AND PRECEDEX AT 0.6 MCG/KG/HR. PT OPENS EYE TO VERBAL STIMULI. LUNG CLEAR IN UPPER LOBES, DIMINISHED IN BASES. SCANT SECRETIONS THROUGH ETT. TUBE FEEDS CONTINUE AT 25 ML/HR c 30 ML FLUSHES q4 HOURS. ONE EPISODE OF EMESIS THIS SHIFT. LASIX D/C'D THIS SHIFT, NS BOLUS OF 500ML GIVEN, ALBUMIN ALSO GIVEN. GAYTAN PATENT AND DRAINING TO GRAVITY. YELLOW/GREEN URINE OUT. VSS. WILL CONTINUE TO MONITOR UNTIL REPORT TO ONCOMING NURSE.
[2020-01-31 04:06] LABS: BASOPHILS ABSOLUTE AUTO 0.02 K/mm3 (0.00-0.23); BASOPHILS PERCENT AUTO 0 % (0-2); EOSINOPHILS ABSOLUTE AUTO 0.26 K/mm3 (0.00-0.68); EOSINOPHILS PERCENT AUTO 4 % (0-6); Hematocrit 41.5 % (37.0-53.0); Hemoglobin 12.9 g/dL (13.5-17.5); IMMATURE GRAN ABSOLUTE AUTO 0.03 K/mm3 (0.00-0.10); IMMATURE GRAN PERCENT AUTO 0 % (0-1); LYMPHOCYTES ABSOLUTE AUTO 1.23 K/mm3 (0.84-5.20); LYMPHOCYTES PERCENT AUTO 17 % (21-46); MONOCYTES ABSOLUTE AUTO 0.39 K/mm3 (0.16-1.47); MONOCYTES PERCENT AUTO 5 % (4-13); Mean Corpuscular HGB 26.1 pg (26.0-34.0); Mean Corpuscular HGB Conc 31.1 g/dL (31.5-36.5); Mean Corpuscular Volume 84 fL (80-100); Mean Platelet Volume 9.3 fL (9.1-12.4); NEUTROPHILS ABSOLUTE AUTO 5.33 K/mm3 (1.96-9.15); NEUTROPHILS PERCENT AUTO 73 % (41-73); Platelet Count 176 K/mm3 (150-400); RDW Coefficient Variation 18.6 % (11.7-14.2); RDW Standard Deviation 57.6 fL (35.1-46.3); Red Blood Cell Count 4.94 M/mm3 (4.30-5.90); White Blood Cell Count 7.26 K/mm3 (4.00-11.30)
[2020-01-31 04:24] LABS: Anion Gap 4 mmol/L (6-16); Blood Urea Nitrogen 25 mg/dL (8-24); Bun/Creatinine Ratio 25.2 (12.0-20.0); CO2, Blood 28 mmol/L (21-32); Calcium, Blood 8.6 mg/dL (8.5-10.1); Chloride, Blood 111 mmol/L (98-108); Creatinine, Blood 0.99 mg/dL (0.60-1.20); Glomerular Filtration Rate >60 (60-); Glucose, Blood 94 mg/dL (70-99); Phosphorus, Blood 3.9 mg/dL (2.5-4.9); Potassium, Blood 3.6 mmol/L (3.5-5.5); Sodium, Blood 143 mmol/L (136-145)
--- NOTE | 2020-01-31 04:28 | NUR ---
SHIFT SUMMARY PATIENT SLEPT WELL THROUGH NIGHT. TURNED EVERY 2 HOURS, MAINTAINED TUBE FEED AND FREE WATER FLUSHES. NO ACUTE CHANGES OVERNIGHT. ASSESSMENT IS CHARTED. VSS. WILL CONTINUE TO MONITOR.
--- NOTE | 2020-01-31 09:02 | NUR ---
ASSUMED CARE OF PT AT 0700. REPORT FROM SRI BELLE. PT INTUBATED AND SEDATED. VENT SETTINGS AC 20/500/20/55%. PROPOFOL INFUSING AT 40 MCG/KG/MIN, PRECEDEX AT 0.5 MCG/KG/HR. PT WAKES c VERBAL STIMULI, MAKES EYE CONTACT. FOLLOWS SIMPLE COMMANDS. LUNGS DIMINISHED IN BASES. SCANT THIN WHITE SECRETIONS THROUGH ETT. COUGH AND GAG REFLEX. GRIMACES c CARE. ABD DISTENDED, FIRM, HYPOACTIVE BT. VHP INFUSING AT 25 ML/HR c 30 ML FLUSH q4 HR. RESIDUALS 50 ML THIS AM. 2+ EDEMA TO LLE. GAYTAN PATENT, DRAINING CLEAR YELLOW/GREEN URINE TO GRAVITY. PICC TO LUE, POWERGLIDE TO RUE, DRESSINGS C/D/I. VSS. WILL CONTINUE TO MONITOR.
--- NOTE | 2020-01-31 17:00 | NUR ---
SHIFT SUMMARY PT REMAINS INTUBATED AND SEDATED. VENT SETTINGS AC 20/500/18/55%. PROPOFOL INFUSING AT 35 MCG/KG/MIN, PRECEDEX AT 0.5 MCG/KG/HR. PT RESPONSES TO VERBAL STIMULI, FOLLOWS SIMPLE COMMANDS. LUNGS CLEAR IN UPPER LOBES, DIMINISHED IN BASES. ABD ROUND, FIRM, BTX 4. TUBE FEEDS CONTINUE AT GOAL OF 25 ML/HR. RESIDUALS ~50 ML. GAYTAN PATENT AND DRAINING TO GRAVITY, YELLOW/GREEN URINE. BED BATH COMPLETE THIS SHIFT. VSS. WILL CONTINUE TO MONITOR UNTIL REPORT TO ONCOMING NURSE.
[2020-02-01 04:03] LABS: BASOPHILS ABSOLUTE AUTO 0.02 K/mm3 (0.00-0.23); BASOPHILS PERCENT AUTO 0 % (0-2); EOSINOPHILS ABSOLUTE AUTO 0.21 K/mm3 (0.00-0.68); EOSINOPHILS PERCENT AUTO 3 % (0-6); Hematocrit 41.5 % (37.0-53.0); Hemoglobin 12.5 g/dL (13.5-17.5); IMMATURE GRAN ABSOLUTE AUTO 0.03 K/mm3 (0.00-0.10); IMMATURE GRAN PERCENT AUTO 1 % (0-1); LYMPHOCYTES ABSOLUTE AUTO 0.89 K/mm3 (0.84-5.20); LYMPHOCYTES PERCENT AUTO 14 % (21-46); MONOCYTES ABSOLUTE AUTO 0.37 K/mm3 (0.16-1.47); MONOCYTES PERCENT AUTO 6 % (4-13); Mean Corpuscular HGB 25.7 pg (26.0-34.0); Mean Corpuscular HGB Conc 30.1 g/dL (31.5-36.5); Mean Corpuscular Volume 85 fL (80-100); Mean Platelet Volume 10.3 fL (9.1-12.4); NEUTROPHILS ABSOLUTE AUTO 5.02 K/mm3 (1.96-9.15); NEUTROPHILS PERCENT AUTO 77 % (41-73); Platelet Count 182 K/mm3 (150-400); RDW Coefficient Variation 18.4 % (11.7-14.2); RDW Standard Deviation 57.7 fL (35.1-46.3); Red Blood Cell Count 4.86 M/mm3 (4.30-5.90); White Blood Cell Count 6.54 K/mm3 (4.00-11.30)
[2020-02-01 04:17] LABS: Albumin, Blood 2.8 g/dL (3.4-5.0); Anion Gap 8 mmol/L (6-16); Blood Urea Nitrogen 31 mg/dL (8-24); Bun/Creatinine Ratio 30.1 (12.0-20.0); CO2, Blood 25 mmol/L (21-32); Calcium, Blood 8.4 mg/dL (8.5-10.1); Chloride, Blood 111 mmol/L (98-108); Creatinine, Blood 1.03 mg/dL (0.60-1.20); Glomerular Filtration Rate >60 (60-); Glucose, Blood 89 mg/dL (70-99); Magnesium, Blood 2.2 mg/dL (1.6-2.4); Phosphorus, Blood 4.7 mg/dL (2.5-4.9); Potassium, Blood 3.7 mmol/L (3.5-5.5); Sodium, Blood 144 mmol/L (136-145)
--- NOTE | 2020-02-01 04:32 | NUR ---
SHIFT SUMMARY PT. SLEPT WELL THROUGH NIGHT. TOLERATED ACTIVITY (BATHING, TURNING, ETC.) THAN PREVIOUS NIGHTS. DOES STILL DESATURATE WHEN LYTING DOWN, BUT RECOVERED. DID HAVE TO INCREASE FIO2 TO 60% RECENTLY R/T AGITATION FROM PAUSING TO DRAW LABS, SPO2 IMPROVING. TURNED EVERY 2 HOURS, MAINTAINED TUBE FEED & FREE WATER FLUSHES. NO FURTHER CHANGES TO NOTE OVERNIGHT. ASSESSMENT IS CHARTED. VSS. WILL CONTINUE TO MONITOR.
--- NOTE | 2020-02-01 08:10 | NUR ---
ASSUMED CARE: REPORT RECEIVED FROM SRI Harris RN. ASSUMED CARE OF THIS PT AT APPROX 0700. ON ASSESSMENT, THE PT IS SEDATED & INTUBATED. HE APPEARS COMFORTABLE & IS RESTING QUIETLY. BILAT SOFT WRIST RESTRAINTS IN PLACE TO PROTECT FROM ACCIDENTAL SELF-EXTUBATION. PT MOVING BUE SPONTANEOUSLY & WITHDRAWS LLE FROM PAINFUL STIMULUS. LS ARE DIM T/O, VENT SETTINGS 20/500/18/50% W/ O2 SATS > 92%. MONITOR SHOWS SB W/ HR 50s, BP STABLE. HTN IMPROVED W/ SCHEDULED MEDS PER EMAR. PT IS TOLERATING CONTINUOUS TF THROUGH OGT WELL W/ RESIDUALS CHARTED. TEMP GAYTAN PATENT/ DRAINING DARK YELLOW-GREEN URINE. SKIN CONDITION OVERALL INTACT, STUMP TO R AKA IS WELL HEALED. WILL CONTINUE TO MONITOR & UPDATE NEEDED.
--- NOTE | 2020-02-01 10:38 | NUR ---
DR NO: PROVIDER AT BEDSIDE TO EVAL PT. SHE STS SHE WILL BE RESTARTING THE PT ON LASIX & WOULD LIKE SEDATION TO BE DECRESED W/ HOPE THAT BRADYCARDIA WILL RESOLVE. SHE HAS CHANGED THE VENT SETTINGS TO PEEP 16 & PS 12 ON SPONTANEOUS, RT AKSHAT, IS AWARE OF THESE CHANGES.
--- NOTE | 2020-02-01 12:51 | NUR ---
DR AGUILAR: PROVIDER AT BEDSIDE TO EVAL PT. UPDATED HER ON DR NO's PARAMETERS FOR POSSIBLE EXTUBATION & PT's CURRENT CONDITION. NO CHANGES AT THIS TIME.
--- NOTE | 2020-02-01 13:12 | NUR ---
UPDATE: THIS RN TO BEDSIDE FOR VENT ALARMING. PT IS NOTED TO HAVE COPIOUS AMNTS OF SECRETIONS COMING FROM HIS MOUTH & NOSE. SECRETIONS ARE MOSTLY CLEAR & FROTHY BUT SOME LOO COLORED SEDIMENT IS SEEN WELL. THE PT IS ACTIVELY GAGGING & WRETCHING. ET & ORAL SUCTION COMPLETED & TF PLACED ON HOLD WHILE RESIDUAL CHECKED. RESIDUAL OF 10 ML NOTED. DISCUSSED W/ DR NO & RT CALLED TO RESUME PRIOR VENT SETTINGS. SEDATION VIA PROPOFOL RESUMED AT PRIOR RATE & PT IS NOW RESTING COMFORTABLY.
--- NOTE | 2020-02-01 18:17 | NUR ---
SHIFT SUMMARY: NO ACUTE CHANGES SINCE PRIOR UPDATES. PT REMAINS SEDATED & INTUBATED. LS DIM T/O & COARSE IN BASES. VENT SETTINGS: VC 20/500/16/50%, O2 SATS > 92%. MONITOR SHOWS SB-SR W/ HR 50-60s, BP STABLE. HTN W/ INCREASED ANXIETY IS RESOLVED W/ DECREASED STIMULUS. OGT W/ CONTINUOUS TF INFUSING AT GOAL RATE W/ DECREASED RESIDUALS, PT CONTINUES HAVING NO BM BUT IS PASSING FLATUS. TEMP GAYTAN PATENT/ DRAINING DARK YELLOW-GREEN URINE, PT DIURESED WELL - SEE I&O. SKIN CONDITION OVERALL UNCHANGED, CDI. Q2H REPOSITIONING COMPLETED THIS SHIFT. WILL CONTINUE TO MONITOR & REPORT OFF TO ONCOMING RN.
[2020-02-02 04:05] LABS: BASOPHILS ABSOLUTE AUTO 0.02 K/mm3 (0.00-0.23); BASOPHILS PERCENT AUTO 0 % (0-2); EOSINOPHILS PERCENT AUTO 4 % (0-6); Hematocrit 38.9 % (37.0-53.0); Hemoglobin 11.8 g/dL (13.5-17.5); IMMATURE GRAN ABSOLUTE AUTO 0.03 K/mm3 (0.00-0.10); IMMATURE GRAN PERCENT AUTO 1 % (0-1); LYMPHOCYTES ABSOLUTE AUTO 1.28 K/mm3 (0.84-5.20); LYMPHOCYTES PERCENT AUTO 22 % (21-46); MONOCYTES ABSOLUTE AUTO 0.25 K/mm3 (0.16-1.47); MONOCYTES PERCENT AUTO 4 % (4-13); Mean Corpuscular HGB Conc 30.3 g/dL (31.5-36.5); Mean Corpuscular Volume 86 fL (80-100); Mean Platelet Volume 10.7 fL (9.1-12.4); NEUTROPHILS ABSOLUTE AUTO 3.99 K/mm3 (1.96-9.15); NEUTROPHILS PERCENT AUTO 69 % (41-73); Platelet Count 165 K/mm3 (150-400); RDW Coefficient Variation 17.8 % (11.7-14.2); RDW Standard Deviation 56.6 fL (35.1-46.3); Red Blood Cell Count 4.53 M/mm3 (4.30-5.90); White Blood Cell Count 5.77 K/mm3 (4.00-11.30)
[2020-02-02 04:15] LABS: Base Excess Venous 0.7 mmol/L; Bicarbonate Venous 24.7 mmol/L (24.0-30.0); PCO2 Venous 43.6 mmHg (38-42); PO2 Venous 82.3 mmHg (38-42); pH Blood Venous 7.38 (7.34-7.37)
[2020-02-02 04:21] LABS: Albumin, Blood 2.5 g/dL (3.4-5.0); Anion Gap 5 mmol/L (6-16); Blood Urea Nitrogen 29 mg/dL (8-24); Bun/Creatinine Ratio 30.6 (12.0-20.0); CO2, Blood 26 mmol/L (21-32); Calcium, Blood 8.2 mg/dL (8.5-10.1); Chloride, Blood 113 mmol/L (98-108); Creatinine, Blood 0.95 mg/dL (0.60-1.20); Glomerular Filtration Rate >60 (60-); Glucose, Blood 87 mg/dL (70-99); Magnesium, Blood 2.1 mg/dL (1.6-2.4); Phosphorus, Blood 4.4 mg/dL (2.5-4.9); Potassium, Blood 3.5 mmol/L (3.5-5.5); Sodium, Blood 144 mmol/L (136-145)
--- NOTE | 2020-02-02 04:40 | NUR ---
SHIFT SUMMARY PATIENT HAS SLEPT WELL THROUGH NIGHT. INITIALLY HAD TO INCREASE PEEP AFTER DESATURATION FROM TURNING DURING BATH, STILL ON PEEP OF 16. HAS DONE WELL SINCE. ASSESSMENT IS CHARTED. VSS. WILL CONTINUE TO MONITOR.
--- NOTE | 2020-02-02 07:30 | NUR ---
ASSUMED CARE BEDSIDE REPORT RECIEVED. PT IS LAYING IN BED, INTUBATED, AND SEDATED. VENT SETTINGS AC 20, PC 13, PEEP 16, FIO2 60%. PT SEDATED WITH PROPOFOL AT 40 MCG/KG/MIN AND PRECEDEX AT 0.3 MCG/KG/MIN. PT GRIMMACES AND WITHDRAWS TO NOXIOUS STIMULI. AT TIMES PT ABLE TO FOLLOW SIMPLE COMMANDS. OGT IN PLACE WITH TF INFUSING AT GOAL RATE. PICC TO MARTA C/D/I. PG TO HIEU C/D/I, SALINE LOCKED. GAYTAN IN PLACE WITH MINIMAL AMOUNT OF DARK YELLOW URINE OUTPUT NOTED. SBW RESTRAINTS IN PLACE. RIGHT AKA NOTED. WILL CONTINUE TO MONITOR.
--- NOTE | 2020-02-02 11:55 | NUR ---
UPDATE PT CONTINUES TO DO WELL MINIMALLY SEDATED WITH PROPOFOL AT 10 MCG/KG/MIN AND PRECEDEX AT 0.3 MCG/KG/MIN. PT REMAINS ON SPONTANEOUS WITH PS 12/12, FIO2 40%. PT WITH COPIOUS CLEAR ORAL SECRETIONS. PT REMAINS RESTLESS, BUT IS COOPERATIVE AND FOLLOWING COMMAND APPROPRIATELY. PLAN TO POSSIBLY EXTUBATE TOMORROW IF PT CONTINUES TO DO WELL TODAY. WILL CONTINUE TO MONITOR.
--- NOTE | 2020-02-02 18:17 | NUR ---
SHIFT SUMMARY PT DID WELL THIS SHIFT. PT HAS REMAINED INTUBATED AND MINIMALLY SEDATED THROUGHOUT THE DAY. PT HAS BEEN ON SPONTANEOUS WITH PRESSURE SUPPORT OF /, FIO2 40%. PT WITH COPIOUS ORAL AND ETT SECRETIONS WITH SUCTION. PT SEDATED WITH PRECEDEX AT 0.5 MCG/KG/MIN AND PROPOFOL AT 30 MCG/KG/MIN AT THIS TIME. PT HAS REMAINED CALM AND COOPERATIVE. PT ABLE TO FOLLOW COMMANDS AND NOD HEAD YES OR NO TO SOME QUESTIONS. VITAL SIGNS HAVE REMAINED STABLE. OGT IN PLACE WITH TF INFUSING AT 25 ML/HR GOAL RATE. PICC REMAINS C/D/I. PG TO HIEU C/D/I, SALINE LOCKED. GAYTAN TEMP PROBE REMAINS IN PLACE WITH LARGE AMOUNT OF DARK YELLOW URINE OUTPUT THIS SHIFT. SBW RESTRAINTS IN PLACE. WILL CONTINUE TO MONITOR AND REPORT OFF TO ONCOMING RN.
[2020-02-03 04:33] LABS: BASOPHILS ABSOLUTE AUTO 0.03 K/mm3 (0.00-0.23); BASOPHILS PERCENT AUTO 0 % (0-2); EOSINOPHILS PERCENT AUTO 2 % (0-6); Hematocrit 39.6 % (37.0-53.0); Hemoglobin 12.1 g/dL (13.5-17.5); IMMATURE GRAN ABSOLUTE AUTO 0.02 K/mm3 (0.00-0.10); IMMATURE GRAN PERCENT AUTO 0 % (0-1); LYMPHOCYTES ABSOLUTE AUTO 0.97 K/mm3 (0.84-5.20); LYMPHOCYTES PERCENT AUTO 10 % (21-46); MONOCYTES ABSOLUTE AUTO 0.29 K/mm3 (0.16-1.47); MONOCYTES PERCENT AUTO 3 % (4-13); Mean Corpuscular HGB 26.5 pg (26.0-34.0); Mean Corpuscular HGB Conc 30.6 g/dL (31.5-36.5); Mean Corpuscular Volume 87 fL (80-100); Mean Platelet Volume 10.8 fL (9.1-12.4); NEUTROPHILS ABSOLUTE AUTO 7.97 K/mm3 (1.96-9.15); NEUTROPHILS PERCENT AUTO 84 % (41-73); Platelet Count 189 K/mm3 (150-400); RDW Coefficient Variation 17.4 % (11.7-14.2); RDW Standard Deviation 56.2 fL (35.1-46.3); Red Blood Cell Count 4.56 M/mm3 (4.30-5.90); White Blood Cell Count 9.48 K/mm3 (4.00-11.30)
[2020-02-03 04:48] LABS: Anion Gap 5 mmol/L (6-16); Blood Urea Nitrogen 25 mg/dL (8-24); Bun/Creatinine Ratio 29.2 (12.0-20.0); CO2, Blood 27 mmol/L (21-32); Calcium, Blood 8.4 mg/dL (8.5-10.1); Chloride, Blood 112 mmol/L (98-108); Creatinine, Blood 0.86 mg/dL (0.60-1.20); Glomerular Filtration Rate >60 (60-); Glucose, Blood 96 mg/dL (70-99); Magnesium, Blood 1.9 mg/dL (1.6-2.4); Potassium, Blood 3.6 mmol/L (3.5-5.5); Sodium, Blood 144 mmol/L (136-145)
--- NOTE | 2020-02-03 06:21 | NUR ---
SHIFT SUMMARY NO ACUTE CHANGES. REMAINED ON SPONTANEOUS VENTILATION T/O NOC- PS 12, PEEP 10, FIO2 NOW AT 35%. SEDATED WITH PRECEDEX AT 0.5MCG/KG/HR AND PROPOFOL BETWEEN 20-30MCG/KG/MIN. PROPOFOL NOW AT 30MCG/KG/MIN. OCCASIONAL PERIODS OF AGITATION WHERE PT ATTEMPTS TO SIT UP AND REACHES FOR ETT TUBE. OCCASIONALLY FOLLOWS SIMPLE COMMANDS. BILATERAL SOFT WRIST RESTRAINTS IN PLACE. TUBE FEEDING AT GOAL RATE. RESIDUALS WNL. GAYTAN PATENT AND DRAINING. TMAX 99.6. VSS, BUT PT IS OCCASIONALLY HYPERTENSIVE WITH AGITATION. HR MID 50s-60S. WILL REPORT TO ONCOMING RN WHEN AVAILABLE.
--- NOTE | 2020-02-03 07:15 | NUR ---
BEGINNING OF SHIFT Assumed care at 0700. Bedside report received from Zenobia BELLE. Pt sedated with 30 mcg/kg/min propofol and 0.5 mcg/kg/hr precedex, both infusing through MARTA PICC line. With these medications, pt opens eyes with verbal stimulus. Follows commands and is calm and cooperative. Bilateral soft wrist restraints in place to prevent self-extubation. Pt on ventilator, spotaneous PS 12/10, 35% FiO2. SpO2 90% or greater. Loose, productive cough with small amounts of frothy, white sputum. SR per monitor. BP stable. Tan catheter in place draining clear, yellow urine.
--- NOTE | 2020-02-03 10:15 | NUR ---
Dr Viera in to see pt. States plan for extuation and immediate placement on BiPAP 23/03. States she also wants vest CPT started for patient.
--- NOTE | 2020-02-03 11:09 | NUR ---
Pt extubated to BiPAP at 1042. BiPAP settings 14/, 100% FiO2 initially. RR 32-34, Tidal volumes 350-400 mL. Titrated down to 60% FiO2 at this time. SpO2 90% or greater. Propofol off at time of extuabtion, OG tube removed, restraints discontinued. Pt remains on precedex at 0.5 mcg/kg/hr, okay per Dr Viera.
--- NOTE | 2020-02-03 13:28 | NUR ---
Discussed fever with Dr Viera. New orders given for tylenol suppository. This RN educated pt on importance of suppository with regards to temperature and inability to swallow at this time. Pt initially resistant to having suppository, but then agreed after education provided. Pt tolerated suppository well. Will continue to reassess temperature.
--- NOTE | 2020-02-03 14:31 | NUR ---
IPAP changed to 16 per RT. EPAP remains at 10. Pt had vest therapy and tolerated well. Pt resting in bed at this time.
--- NOTE | 2020-02-03 18:35 | NUR ---
SUMMARY Pt extuabted today. At this time, precedex is off. Pt is alert and oriented, to self and place. Answers questions, follows commands, verbalizes needs. Pt did not get out of bed this shift. Pt is able to assist with in bed mobility. Pt failed bedside swallow eval. Pt in on 4 LPM NC. SpO2 90% or greater. SR per monitor. BP stable. Tan catheter remains in place, excellent urine output. Will continue to closely monitor until care handoff and bedside report with oncoming RN.
--- NOTE | 2020-02-03 19:55 | NUR ---
ASSUMED CARE: PT EXT TODAY AND PLACED ON BIPAP. A&O. FEBRILE WITH T OF 99.9 VIA TEMP GAYTAN. SBP IN THE 120S, HR IN THE 80S CURRENTLY. LUNG SOUNDS ARE CLEAR, DIM IN BASES. ON BIPAP SETTINGS ARE 16/10 40%. PT IS SOMEWHAT EDEMATOUS T/O. BT HYPOACTIVE. LAST BM TODAY. PICC TO MARTA, PG TO HIEU-BOTH PATENT AND SL. PT IS CURRENTLY NPO. SPOKE WITH ALEXIS BRIDGES ABOUT PT'S LOPRESSOR PT ORDER. PT NO LONGER HAS AN OGT-IT WAS PULLED WITH EXTUBATION. ORDERS FOR LOPRESSOR TO BE CHANGED TO IV. PT HAS AN AKA FROM NECROTIZING [facility]. WILL CONTINUE TO MONITOR
[2020-02-04 04:11] LABS: BASOPHILS ABSOLUTE AUTO 0.04 K/mm3 (0.00-0.23); BASOPHILS PERCENT AUTO 0 % (0-2); EOSINOPHILS ABSOLUTE AUTO 0.04 K/mm3 (0.00-0.68); EOSINOPHILS PERCENT AUTO 0 % (0-6); Hematocrit 40.4 % (37.0-53.0); IMMATURE GRAN ABSOLUTE AUTO 0.05 K/mm3 (0.00-0.10); IMMATURE GRAN PERCENT AUTO 1 % (0-1); LYMPHOCYTES ABSOLUTE AUTO 0.67 K/mm3 (0.84-5.20); LYMPHOCYTES PERCENT AUTO 6 % (21-46); MONOCYTES PERCENT AUTO 3 % (4-13); Mean Corpuscular HGB 26.1 pg (26.0-34.0); Mean Corpuscular HGB Conc 29.7 g/dL (31.5-36.5); Mean Corpuscular Volume 88 fL (80-100); Mean Platelet Volume 11.2 fL (9.1-12.4); NEUTROPHILS ABSOLUTE AUTO 9.74 K/mm3 (1.96-9.15); NEUTROPHILS PERCENT AUTO 90 % (41-73); Platelet Count 195 K/mm3 (150-400); RDW Coefficient Variation 17.2 % (11.7-14.2); RDW Standard Deviation 55.2 fL (35.1-46.3); White Blood Cell Count 10.84 K/mm3 (4.00-11.30)
[2020-02-04 04:31] LABS: Anion Gap 5 mmol/L (6-16); Blood Urea Nitrogen 15 mg/dL (8-24); Bun/Creatinine Ratio 21.8 (12.0-20.0); CO2, Blood 28 mmol/L (21-32); Calcium, Blood 8.8 mg/dL (8.5-10.1); Chloride, Blood 109 mmol/L (98-108); Creatinine, Blood 0.69 mg/dL (0.60-1.20); Glomerular Filtration Rate >60 (60-); Glucose, Blood 91 mg/dL (70-99); Phosphorus, Blood 2.9 mg/dL (2.5-4.9); Potassium, Blood 3.2 mmol/L (3.5-5.5); Sodium, Blood 142 mmol/L (136-145)
--- NOTE | 2020-02-04 06:26 | NUR ---
SHIFT SUMMARY: PT AWAKE MOST OF NIGHT. ON AND OFF AGITATED BUT OVERALL COOPERATIVE. PT IS CONFUSED AND HALLUCINATING. EASILY REDIRECTABLE. PT WAS HYPERTENSIVE T/O NIGHT DESPITE LOPRESSOR AND HYDRALAZINE IV PRN. PT C/O OF A HEADACHE AND LEG PAIN. FENTANYL GIVEN X 2. STAYED ON BIPAP MOST OF NIGHT WITH A SHORT BREAK ON NC AT 6L. BIPAP SETTINGS ARE 16/10/45% MILDLY FEBRILE IN THE 99.0S. TEMP GAYTAN IN PLACE. PICC IN MARTA AND PG ION HIEU PATENT. K+ WAS LOW THIS AM. CURRENTLY BEING REPLACED. PT REFUSED ALL ORAL CARE T/O NIGHT. WAS HELPFUL WITH REPOSITIONING. WILL PASS REPORT TO ONCOMING SHIFT
--- NOTE | 2020-02-04 07:15 | NUR ---
Assumed care at 0700. Bedside report received from Luis BELLE. Pt alert, oriented to self and place. Answers questions. Verbalizes needs. States he does not like BiPAP. ST per monitor. Hypertensive.
[2020-02-04 08:19] LABS: Base Excess Venous 0.7 mmol/L; Bicarbonate Venous 23.9 mmol/L (24.0-30.0); PCO2 Venous 54.9 mmHg (38-42); PO2 Venous 54.1 mmHg (38-42)
--- NOTE | 2020-02-04 08:33 | NUR ---
Pt tachycardic, hypertensive, and diaphoretic. Labored breathing. Gasping respirations. Pt continues to remove BiPAP and request nasal cannula. SpO2 78% with 4 LPM NC, which has been pt's regular NC use when not on BiPAP. Pt's presentation dicussed with weigh and charge worker, Maral, and Dr Viera. Orders give to increase IPAP to 20 and draw VBG.
--- NOTE | 2020-02-04 10:30 | NUR ---
Clarified if provider would like potassium redraw before administering additional 40 meq of potassium. Provider states this is not necessary and potassium will be rechecked 02/04 AM
--- NOTE | 2020-02-04 12:00 | NUR ---
Patient tolerating BiPAP well since IPAP increased to 20 and changed to full face mask. Pt on 0.7 mcg/kg/hr precedex. Respirations even and unlabored. RR 22-24, Tidal volumes 700-50 mL. SR per monitor, BP stable.
[2020-02-04 17:29] LABS: Base Excess Venous 1.7 mmol/L; Bicarbonate Venous 25.3 mmol/L (24.0-30.0); PCO2 Venous 47.2 mmHg (38-42); PO2 Venous 53.4 mmHg (38-42); pH Blood Venous 7.37 (7.34-7.37)
--- NOTE | 2020-02-04 19:00 | NUR ---
SUMMARY Pt wore BiPAP for 11 hours shift shift. Pt currently on break from BiPAP. SpO2 90% or greater with 6 LPM NC. Respirations even and unlabored. Unable to obtain sputum sample this shift, pt has not expectorated. Pt remains on 0.7 mcg/kg/hr precedex. Pt alert. Aware of self and place. No indication of auditory or visual hallucinations at this time. Pt pleasant and cooeprative with care. Able to roll left/right in bed with moderate assist from one staff for linen change. Tan catheter remains in place with excellent urine output this shift. Pt had one incontinent bowel movement, mucousy and brown. Pt did not participate with PT/OT/ST this shift due to fragile respiratory status earlier in the shift. Bedside report given to BARBRA Smith to assume care.
--- NOTE | 2020-02-04 21:00 | NUR ---
ASSUMED CARE: PT AWAKE IN BED. CALM AND COOPERATIVE. APPEARS MORE ORIENTED THIS EVENING. SBP IN THE 130S, HR SINUS IN THE 50-60S. LUNG SOUNDS ARE COARSE, DIM IN BASES. ON NC, SPO2 >93%. HOWEVER, BREATHING IS LABORED AND SHALLOW. BIPAP PLACED BACK ON WHILE SLEEPING. SETTINGS ARE 20/10, FIO2 40%. TOLERATING BIPAP WELL. BTX4, HYPOACTIVE. HAD BM DURING DAYSHIFT. T GAYTAN IN PLACE DRAINING DARK YELLOW URINE. PICC TO MARTA, INFUSING WITH PRECEDEX AT 0.7. PG HIEU-PATENT AND SL. NEED SPUTUM SAMPLE WHEN PT IS ABLE TO PROVIDE. ALSO NEEDS A REPEAT BEDSIDE SWALLOW EVAL.
--- NOTE | 2020-02-05 01:06 | NUR ---
TRANSFER OF CARE: NO ACUTE CHANGES THUS FAR. TRANSFERRING CARE TO BARBRA AVERY
--- NOTE | 2020-02-05 03:10 | NUR ---
ASSUMPTION OF CARE ASSUMED CARE OF PT @ 0115, PT RESTING IN BED, AROUSES WITH NURSING CARE, ORIENTED TO SELF AND FOLLOWING DIRECTIONS. BIPAP IN PLACE, 20/10 FIO2 40%, RR 16-20, PT TRIGGERING 70-80% OF BREATHS, LS CLEAR AND DIMINISHED T/O PRECEDEX INF FOR BIPAP TOLERANCE, SEE FLOWSHEET FOR RATES AND TITRATIONS. MONITOR SHOWS SINUS RHYTHM WITH HR 60'S, BP STABLE. GAYTAN IN PLACE DRAINING DARK YELLOW TO KRISTINE COLORED URINE, GOOD OUTPUT. PT MOVING ALL EXTREMETIES AND ABLE TO MAKE SMALL READJUSTMENTS IN BED. CALL LIGHT WITHIN REACH.
[2020-02-05 04:17] LABS: BASOPHILS ABSOLUTE AUTO 0.03 K/mm3 (0.00-0.23); BASOPHILS PERCENT AUTO 0 % (0-2); EOSINOPHILS PERCENT AUTO 2 % (0-6); Hematocrit 37.8 % (37.0-53.0); Hemoglobin 11.4 g/dL (13.5-17.5); IMMATURE GRAN ABSOLUTE AUTO 0.03 K/mm3 (0.00-0.10); IMMATURE GRAN PERCENT AUTO 0 % (0-1); LYMPHOCYTES ABSOLUTE AUTO 0.76 K/mm3 (0.84-5.20); LYMPHOCYTES PERCENT AUTO 9 % (21-46); MONOCYTES ABSOLUTE AUTO 0.34 K/mm3 (0.16-1.47); MONOCYTES PERCENT AUTO 4 % (4-13); Mean Corpuscular HGB 26.6 pg (26.0-34.0); Mean Corpuscular HGB Conc 30.2 g/dL (31.5-36.5); Mean Corpuscular Volume 88 fL (80-100); Mean Platelet Volume 10.8 fL (9.1-12.4); NEUTROPHILS ABSOLUTE AUTO 7.16 K/mm3 (1.96-9.15); NEUTROPHILS PERCENT AUTO 84 % (41-73); Platelet Count 194 K/mm3 (150-400); RDW Standard Deviation 54.5 fL (35.1-46.3); Red Blood Cell Count 4.28 M/mm3 (4.30-5.90); White Blood Cell Count 8.52 K/mm3 (4.00-11.30)
[2020-02-05 04:23] LABS: Base Excess Venous 2.8 mmol/L; PCO2 Venous 53.6 mmHg (38-42); PO2 Venous 79.1 mmHg (38-42); pH Blood Venous 7.34 (7.34-7.37)
[2020-02-05 04:35] LABS: Anion Gap 4 mmol/L (6-16); Blood Urea Nitrogen 17 mg/dL (8-24); Bun/Creatinine Ratio 22.5 (12.0-20.0); CO2, Blood 29 mmol/L (21-32); Calcium, Blood 8.7 mg/dL (8.5-10.1); Chloride, Blood 111 mmol/L (98-108); Creatinine, Blood 0.76 mg/dL (0.60-1.20); Glomerular Filtration Rate >60 (60-); Glucose, Blood 87 mg/dL (70-99); Phosphorus, Blood 3.2 mg/dL (2.5-4.9); Potassium, Blood 3.4 mmol/L (3.5-5.5); Sodium, Blood 144 mmol/L (136-145)
--- NOTE | 2020-02-05 07:13 | NUR ---
SHIFT SUMMARY NO ACUTE CHANGES THIS SHIFT, PT REMAINS CALM AND COOPERATIVE, TOLERATING BIPAP WELL. DISCUSSED AM VBG RESULTS WITH RT, FIO2 DECREASED TO 30%. MONITOR SHOWS SINUS RHYTHM WITH HR 60'S, BP STABLE, PT RECEIVING LOPRESSOR IV Q6. ORAL CARE PROVIDED TO PT, PT CLEARING OWN SECRETIONS, UNABLE TO OBTAIN SPUTUM SPECIMEN AT THIS TIME. GAYTAN REMAINS IN PLACE. PT BLACKBURN AND ABLE TO TURN SELF INDEPENDENTLY. REPORT GIVEN TO TY BELLE.
--- NOTE | 2020-02-05 07:50 | NUR ---
ASSUMED CARE BEDSIDE REPORT RECIEVED. PT IS RESTING IN BED AWAKE, ALERT, AND ORIENTED. PT IS FOLLOWING DIRECTIONS APPROPRIATELY AND IS CALM AND COOPERATIVE. PT REQUESTING BREAK FROM BIPAP AT THIS TIME. BIPAP SETTINGS 20/10, FIO2 40%. VITAL SIGNS STABLE. PICC TO MARTA C/D/I WITH PRECEDEX INFUSING AT 0.7 MCG/KG/MIN. POWERGLIDE TO HIEU SALINE LOCKED. GAYTAN IN PLACE WITH YELLOW URINE OUTPUT NOTED. PT ABLE TO TURN AND REPOSITION SELF IN BED. RIGHT AKA NOTED. WILL CONTINUE TO MONITOR.
--- NOTE | 2020-02-05 18:03 | NUR ---
SHIFT SUMMARY NO ACUTE CHANGES TODAY. PT DID WELL WITH ALTERNATING BETWEEN 4L O2 VIA HFNC WHILE AWAKE, AND BIPAP 13/10, FIO2 30% WHILE SLEEPING. PT HAS DENIED SOB AT REST. PRECEDEX GTT HAS REMAINED OFF ALL SHIFT. PT IS ALERT, ORIENTED, AND FOLLOWING DIRECTIONS APPROPRIATELY. PT UP TO SIDE OF BED WITH PT AND OT TODAY. PT TOLERATING CLEAR LIQUID DIET WELL. PT HAS SHIFTED SELF IN BED INDEPENDENTLY THROUGHOUT THE SHIFT. PICC TO MARTA REMAINS C/D/I, SALINE LOCKED. GAYTAN CATH REMOVED THIS AFTERNOON, PT WITH GOOD URINE OUTPUT THROUGHOUT THE DAY. PT DISCUSSED DISCHARGE PLAN WITH LINTER OPERATOR TODAY, PT IS AGREEABLE TO DC TO REHAB FACILITY WHEN READY FOR HOSPITAL DC. WILL CONTINUE TO MONITOR AND REPORT OFF TO ONCOMING RN.
--- NOTE | 2020-02-05 20:00 | NUR ---
ASSUMPTION OF CARE PT ALERT AND ORIENTED TO SELF, LOCATION, EVENT AND FOLLOWING DIRECTIONS. PT ON 5L PER HI FLOW HUMIDIFIED NC, BIPAP AT BEDSIDE TO BE WORN WHILE SLEEPING. MONITOR SHOWS SINUS TACH WITH HR 110-120'S, BP STABLE. PT CONTINENT OF BOWEL AND BLADDER, USES URINAL AT BEDSIDE INDEPENDENTLY, NEEDS ASSISTANCE TO BEDPAN FOR BM'S. PT WEAK T/O BUT IS ABLE TO TURN AND REPOSITION SELF INDEPENDENTLY. CALL LIGHT WITHIN REACH, PT USING APPROPRIATELY.
--- NOTE | 2020-02-06 02:46 | NUR ---
HYPERTENSION PT HYPERTENSIVE WITH SBP>200, HYDRALAZINE ADMINISTERED WTIH NO IMPROVEMENT. DISCUSSED WITH DR DO, ORDER FOR ONE TIME DOSE OF 20MG LABETALOL. SBP DECREASED TO 170-180'S, DR DO UPDATED AND 20MG IV LABETALOL Q4H PRN FOR SBP>180 ORDERED.
[2020-02-06 05:25] LABS: BASOPHILS ABSOLUTE AUTO 0.04 K/mm3 (0.00-0.23); BASOPHILS PERCENT AUTO 1 % (0-2); EOSINOPHILS ABSOLUTE AUTO 0.12 K/mm3 (0.00-0.68); EOSINOPHILS PERCENT AUTO 1 % (0-6); Hematocrit 41.6 % (37.0-53.0); Hemoglobin 12.5 g/dL (13.5-17.5); IMMATURE GRAN ABSOLUTE AUTO 0.02 K/mm3 (0.00-0.10); IMMATURE GRAN PERCENT AUTO 0 % (0-1); LYMPHOCYTES ABSOLUTE AUTO 0.98 K/mm3 (0.84-5.20); LYMPHOCYTES PERCENT AUTO 12 % (21-46); MONOCYTES ABSOLUTE AUTO 0.42 K/mm3 (0.16-1.47); MONOCYTES PERCENT AUTO 5 % (4-13); Mean Corpuscular HGB 26.5 pg (26.0-34.0); Mean Corpuscular Volume 88 fL (80-100); NEUTROPHILS ABSOLUTE AUTO 6.83 K/mm3 (1.96-9.15); NEUTROPHILS PERCENT AUTO 81 % (41-73); Platelet Count 236 K/mm3 (150-400); RDW Coefficient Variation 17.2 % (11.7-14.2); RDW Standard Deviation 55.7 fL (35.1-46.3); Red Blood Cell Count 4.72 M/mm3 (4.30-5.90); White Blood Cell Count 8.41 K/mm3 (4.00-11.30)
[2020-02-06 05:45] LABS: Anion Gap 5 mmol/L (6-16); Blood Urea Nitrogen 10 mg/dL (8-24); CO2, Blood 32 mmol/L (21-32); Calcium, Blood 9.1 mg/dL (8.5-10.1); Chloride, Blood 106 mmol/L (98-108); Creatinine, Blood 0.48 mg/dL (0.60-1.20); Glomerular Filtration Rate >60 (60-); Glucose, Blood 93 mg/dL (70-99); Magnesium, Blood 1.9 mg/dL (1.6-2.4); Potassium, Blood 2.8 mmol/L (3.5-5.5); Sodium, Blood 143 mmol/L (136-145)
--- NOTE | 2020-02-06 06:11 | NUR ---
SHIFT SUMMARY PT REMAINS STABLE T/O NIGHT, PT HYPERTENSIVE THIS SHIFT, SEE PREVIOUS NOTE AND NEW ORDER FOR LABETALOL. PT TOLERATED BIPAP T/O NIGHT WITH SOME BREAKS ON 10L PER NC TO MAINTAIN O2 SATURATIONS>90%. PT DID NOT SLEEP WELL THIS SHIFT, PT VERY RESTLESS IN BED. USES URINAL INDEPENDENTLY. CALL LIGHT WITHIN REACH, PT USES APPROPRIATELY.
--- NOTE | 2020-02-06 07:52 | NUR ---
ASSUMED CARE BEDSIDE REPORT RECIEVED. PT IS SITTING UP IN BED AWAKE, ALERT, AND ORIENTED. PT IS CALM AND COOPERATIVE, BUT ANXIOUS AT THIS TIME. PT INITIALLY DOING WELL ON 7L 02 NC. PT WITH SPO2 MAINTAINING LOW 80'S, PT PLACED BACK ON BIPAP SETTINGS 13/10, FIO2 40% AT THIS TIME. PT WITH PICC TO MARTA C/D/I, KCL IVPB INFUSING. PT WITH URINAL AT BEDSIDE TO VOID. PT SHIFTING SELF AROUND IN BED INDEPENDENTLY. RIGHT AKA NOTED. WILL CONTINUE TO MONITOR.
--- NOTE | 2020-02-06 14:36 | NUR ---
TRANSFER OUT REPORT CALLED TO DESTINY BELLE. ALL QUESTIONS ANSWERED. PT TAKEN TO PCU 2 VIA BED AT 1420. ALL PT MEDS AND BELONGINGS TAKEN WITH PT.
--- NOTE | 2020-02-06 14:45 | NUR ---
pt arrived to pcu 2 via wheelchair, he is pulled to the pcu bed, no complaints or needs at this time. currently on5 liters o2 via n/c, rt in room to set up the bipap. call light in reach, he wants to lay on his side for a bit
--- NOTE | 2020-02-06 17:28 | NUR ---
pt sat up for dinner, states he wants to go home, explained he isn't well enough to do that yet. lets see how tomorrow looks. call no more was said about it, call light in reach.
[2020-02-07 06:19] LABS: BASOPHILS ABSOLUTE AUTO 0.04 K/mm3 (0.00-0.23); BASOPHILS PERCENT AUTO 1 % (0-2); EOSINOPHILS ABSOLUTE AUTO 0.22 K/mm3 (0.00-0.68); EOSINOPHILS PERCENT AUTO 3 % (0-6); Hematocrit 42.2 % (37.0-53.0); Hemoglobin 12.7 g/dL (13.5-17.5); IMMATURE GRAN ABSOLUTE AUTO 0.02 K/mm3 (0.00-0.10); IMMATURE GRAN PERCENT AUTO 0 % (0-1); LYMPHOCYTES ABSOLUTE AUTO 1.16 K/mm3 (0.84-5.20); LYMPHOCYTES PERCENT AUTO 15 % (21-46); MONOCYTES ABSOLUTE AUTO 0.44 K/mm3 (0.16-1.47); MONOCYTES PERCENT AUTO 6 % (4-13); Mean Corpuscular HGB 26.2 pg (26.0-34.0); Mean Corpuscular HGB Conc 30.1 g/dL (31.5-36.5); Mean Corpuscular Volume 87 fL (80-100); Mean Platelet Volume 9.4 fL (9.1-12.4); NEUTROPHILS ABSOLUTE AUTO 5.97 K/mm3 (1.96-9.15); NEUTROPHILS PERCENT AUTO 76 % (41-73); Platelet Count 239 K/mm3 (150-400); RDW Coefficient Variation 17.2 % (11.7-14.2); RDW Standard Deviation 54.4 fL (35.1-46.3); Red Blood Cell Count 4.85 M/mm3 (4.30-5.90); White Blood Cell Count 7.85 K/mm3 (4.00-11.30)
[2020-02-07 06:35] LABS: Albumin, Blood 3.1 g/dL (3.4-5.0); Anion Gap 2 mmol/L (6-16); Blood Urea Nitrogen 8 mg/dL (8-24); Bun/Creatinine Ratio 14.9 (12.0-20.0); CO2, Blood 36 mmol/L (21-32); Calcium, Blood 8.8 mg/dL (8.5-10.1); Chloride, Blood 103 mmol/L (98-108); Creatinine, Blood 0.54 mg/dL (0.60-1.20); Glomerular Filtration Rate >60 (60-); Glucose, Blood 93 mg/dL (70-99); Magnesium, Blood 1.9 mg/dL (1.6-2.4); Phosphorus, Blood 3.1 mg/dL (2.5-4.9); Sodium, Blood 141 mmol/L (136-145)
--- NOTE | 2020-02-07 06:51 | NUR ---
PATIENT IS ALERT AND ORIENTED. HE IS RESTFUL IN BED ON BIPAP FOR A MAJORITY OF THE NIGHT. HE TRANSFERS FROM BED TO CHAIR AND BACK TO THE BED DURING THE SHIFT X1 ASSIST. NO COMPLAINTS OF PAIN OR SOB. HE USES 4L OF OXYGEN BASELINE. PICC DRESSING CHANGED. SINUS TACH ON THE MONITOR IN THE LOW 100'S. WILL CONTINUE TO MONITOR UNTIL END OF SHIFT
--- NOTE | 2020-02-07 09:00 | NUR ---
CARE ASSUMED REPORT RECEIVED, CARE ASSUMED AT 0700. PT DROWSY BUT ORIENTED. EXTREMELY WITHDRAWN. NOT INTERESTED IN CONVERSATION OR ANY ADL'S. PT EDUCATED. VITALS STABLE. SEE FULL ASSESSMENT. PT REPOSITIONING SELF FREQUENTLY IN BED. GOOD APPETITE. USING URINAL INDEPENDENTLY.
--- NOTE | 2020-02-07 18:44 | NUR ---
SUMMARY NO ACUTE CHANGES THROUGHOUT SHIFT. VITALS STABLE. PT HAS BEEN MOSTLY UNWILLING TO PARTICIPATE IN ANY ADL'S, OTHER THAN A SHOWER THIS AFTERNOON AFTER MULTIPLE ATTEMPTS. PT REPORTS FEELING MUCH BETTER. CHANGED TO MEDICAL WITH TELEMETRY STATUS. PT HAS HAD GOOD APPETITE, USING URINAL INDEPENDENTLY, HAS NOT CALLED FOR ANY NEEDS BUT MAKES NEEDS KNOWN WHEN STAFF ARE IN ROOM.
[2020-02-08 05:37] LABS: Anion Gap 2 mmol/L (6-16); Blood Urea Nitrogen 9 mg/dL (8-24); Bun/Creatinine Ratio 16.1 (12.0-20.0); CO2, Blood 37 mmol/L (21-32); Calcium, Blood 8.8 mg/dL (8.5-10.1); Chloride, Blood 103 mmol/L (98-108); Creatinine, Blood 0.56 mg/dL (0.60-1.20); Glomerular Filtration Rate >60 (60-); Glucose, Blood 100 mg/dL (70-99); Potassium, Blood 3.2 mmol/L (3.5-5.5); Sodium, Blood 142 mmol/L (136-145)
--- NOTE | 2020-02-08 07:12 | NUR ---
ASSUMED PATIENT CARE. PATIENT SLEEPING COMFORTABLY IN BED, NO SIGNS OF ACUTE DISTRESS, WCTM.
--- NOTE | 2020-02-08 07:15 | NUR ---
PATIENT RESTFUL THROUGHOUT THE NIGHT. NO COMPLAINTS OF PAIN OR SOB. SHE COMPLAINED OF PAIN WHEN TURNING WHICH WAS RELIEVED BY ACETOMINOPHEN. VSS, CALL LIGHT WITHIN REACH, BED LOWERED TO LOWEST POSITION. WILL CONTINUE TO MONITOR UNTIL END OF SHIFT
--- NOTE | 2020-02-08 07:19 | NUR ---
PATIENT ALERT AND ORIENTED. HE WAS RESTFUL FOR MOST OF THE NIGHT. NO COMPLAINTS OF PAIN OR SOB. TOLERATING BIPAP WELL WITH SATS IN THE LOW 90'S. HE IS LOOKING FORWARD TO DISCHARGE. VSS, CALL LIGHT WITHIN REACH. WILL CONTINUE TO MONITOR UNTIL END OF SHIFT.
--- NOTE | 2020-02-08 15:18 | NUR ---
PATIENT DECLINED ORAL CARE.
--- NOTE | 2020-02-08 17:21 | NUR ---
NO ACUTE EVENTS THIS SHIFT, VSS. PATIENT REMAINS HYPERTENSIVE, DR. SALGADO AWARE. PATIENT REMAINED ON NASAL CANNULA T/O SHIFT, 4 L O2 WHICH PT. STATES IS BASELINE. PATIENT WORKED WITH PT/OT TODAY, FAILED SWALLOW EVAL WITH SPEECH THERAPY TODAY, PATIENT NPO UNTIL AFTER BARIUM SWALLOW STUDY TOMORROW MORNING. CONCERN FOR ASPIRATION RISK. PLAN IS FOR DC TO SNF.
[2020-02-09 04:32] LABS: Hematocrit 45.4 % (37.0-53.0); Hemoglobin 13.6 g/dL (13.5-17.5); Mean Corpuscular HGB 26.3 pg (26.0-34.0); Mean Corpuscular Volume 88 fL (80-100); Mean Platelet Volume 9.9 fL (9.1-12.4); Platelet Count 282 K/mm3 (150-400); RDW Standard Deviation 54.6 fL (35.1-46.3); Red Blood Cell Count 5.17 M/mm3 (4.30-5.90); White Blood Cell Count 7.47 K/mm3 (4.00-11.30)
--- NOTE | 2020-02-09 04:41 | NUR ---
FREQUENTLY THROUGH THE NIGHT, O2 LEVELS CONTINUALLY DROPPED. AT ONE POINT, O2 LEVELS LOW 65%. PT WOKEN UP AND RESPIRATORY CALLED TO ADJUST BIPAP. RN TO IMPROVE SEAL/PLACEMENT. AO X4 KEPT NPO FOR BARIUM SWALLOW IN AM TELE NSR/SINUS TACH VERY DROWSY, BUT AROUSABLE ATTEMPTED TO DRAW FROM PICC LINE, UNSUCCESSFUL, BUT DOES FLUSH PT HOPEFUL TO DC IN AM CALL LIGHT WITHIN REACH, BED IN LOWEST POSITION. WILL CONTINUE TO MONITOR.
[2020-02-09 04:50] LABS: Anion Gap 3 mmol/L (6-16); Blood Urea Nitrogen 10 mg/dL (8-24); Bun/Creatinine Ratio 17.8 (12.0-20.0); CO2, Blood 37 mmol/L (21-32); Calcium, Blood 9.3 mg/dL (8.5-10.1); Chloride, Blood 101 mmol/L (98-108); Creatinine, Blood 0.56 mg/dL (0.60-1.20); Glomerular Filtration Rate >60 (60-); Glucose, Blood 83 mg/dL (70-99); Potassium, Blood 3.2 mmol/L (3.5-5.5); Sodium, Blood 141 mmol/L (136-145)
--- NOTE | 2020-02-09 07:06 | NUR ---
ASSUMED PATIENT CARE. PATIENT SLEEPING COMFORTABLY IN BED, NO SIGNS OF ACUTE DISTRESS, WCTM.
--- NOTE | 2020-02-09 17:17 | NUR ---
NO ACUTE EVENTS THIS SHIFT, VSS. PATIENT WORKED WITH PT/OT TODAY, PATIENT SHARED TODAY WITH OT THAT HIS PROSTHETIC LEG WAS STOLEN SHORTLY BEFORE ADMISSION, WILL NEED ASSISTANCE AQUIRING NEW PROSTHETIC PRIOR TO DISCHARGE. PATIENT COMPLETED BARIUM SWALLOW STUDY THIS MORNING, PATIENT IS NOW [facility] SOFT DIET WITH SWALLOW PRECAUTIONS. PATIENT RECEIVED X2 K+ RIDERS TODAY, PATIENT CONTINUED ON DIURETICS, ABLE TO VOID IN URINAL. PATIENT AGREEABLE TO SNF PLACEMENT, PENDING PER CARE MANAGEMENT.
--- NOTE | 2020-02-09 23:05 | NUR ---
2241 CATH DOMINIK ORDERED BUT NOT GIVEN, IN PYXIS ROOM FRIDGE.ABLE TO FLUSH [place].
--- NOTE | 2020-02-10 03:32 | NUR ---
SUMMARY PT ARRIVED FROM PCU IN NO DISTRESS. PT HAD A SNACK AND HAS BEEN SLEEPING. PT PICC LINE ONLY FLUSHES IN ONE LUMEN. PT CURRENTLY SLEEPING IN NO DISTRESS. CALL LIGHT IN REACH.
--- NOTE | 2020-02-11 05:06 | NUR ---
SHIFT SUMMARY- NO ACUTE EVENTS OVERNIGHT. PT. A&O, HX OF RT AKA. PT. SAT UP IN CHAIR PART OF THE NIGHT. ASSISTED BACK INTO BED USING TRANSFER BOARD W/O DIFFICULTY. PT. HAD NO COMPLAINTS T/O THE SHIFT. APPEARED TO BE SLEEPING COMFORTABLY DURING THE NIGHT WITH BIPAP IN PLACE. NO APPARENT DISTRESS NOTED. CALL LIGHT WITHIN REACH AND SIDE RAILS UPX2. WILL CONT TO MONITOR.
[2020-02-11 05:24] LABS: Hematocrit 43.5 % (37.0-53.0); Hemoglobin 13.2 g/dL (13.5-17.5); Mean Corpuscular HGB 26.4 pg (26.0-34.0); Mean Corpuscular HGB Conc 30.3 g/dL (31.5-36.5); Mean Corpuscular Volume 87 fL (80-100); Mean Platelet Volume 9.4 fL (9.1-12.4); Platelet Count 265 K/mm3 (150-400); RDW Coefficient Variation 17.5 % (11.7-14.2); White Blood Cell Count 6.97 K/mm3 (4.00-11.30)
[2020-02-11 05:42] LABS: Anion Gap 4 mmol/L (6-16); Blood Urea Nitrogen 11 mg/dL (8-24); Bun/Creatinine Ratio 13.8 (12.0-20.0); CO2, Blood 35 mmol/L (21-32); Calcium, Blood 9.4 mg/dL (8.5-10.1); Chloride, Blood 104 mmol/L (98-108); Glomerular Filtration Rate >60 (60-); Glucose, Blood 83 mg/dL (70-99); Magnesium, Blood 2.2 mg/dL (1.6-2.4); Potassium, Blood 3.7 mmol/L (3.5-5.5); Sodium, Blood 143 mmol/L (136-145)
--- NOTE | 2020-02-11 16:43 | NUR ---
SHIFT SUMMARY- PT A/OX4, PT DENIED ANY COMPLAINTS T/O THE DAY. LS DIMINISHED, ON 5L N/C. BASELINE 4L N/C WITH BIPAP AT HS. OCCASIONAL HARSH NPC. PT REMAINS ON [facility] SOFT, NECTAR THICK DIET, TOLERATING WELL. TELE SR AT 83, TELE DC'D. RIGHT AKA, 2 PERSON STAND PIVOT TODAY. PT AWAITING [facility] BED AT THIS TIME. NO OTHER ACUTE CHANGES THIS SHIFT.
--- NOTE | 2020-02-12 06:36 | NUR ---
SHIFT SUMMARY PT IS A 45 Y/O MALE, ADMITTED FOR ACUTE ON CHRONIC RESPIRATORY FAILURE. HE IS A&O X 4, AND A 2P STAND AND PIVOT DUE TO A R AKA. PT DENIED ANY COMPLAINTS OF ACUTE PAIN, NAUSEA OR SOB. HE IS ON 5L OF O2 VIA NC, SATTING > 92%. VITAL SIGNS STABLE. NO ACUTE CHANGES IN PT CONDITION NOTED. WILL CONTINUE TO MONITOR AND TREAT PER EMAR UNTIL HAND OFF TO DAY SHIFT RN.
--- NOTE | 2020-02-12 17:36 | NUR ---
SHIFT SUMMARY- PT HAS HAD NO ACUTE CHANGE T/O THE DAY. PHYSICAL THERAPIST MICAELA WORKED WITH HIM AND HE NO LONGER NEEDS THE SLIDDER BOARD SO HE REMOVED IT FROM THE PT ROOM. PT HAS BEEN UP IN THE CHAIR ALERT AND ORIENTED FOR MOST OF THE SHIFT. PT IS PLEASENT AND COOPERATIVE WITH CARE. STILL AWAITING PLACEMENT IN SNF FOR DISCHARGE. DELAYS D/T Hx METH.
--- NOTE | 2020-02-12 23:48 | NUR ---
2345 NO IV ACCESS ORDER NEEDED
--- NOTE | 2020-02-13 05:28 | NUR ---
CHAIR MENDER SUMMARY PT WAS AXO X4. PT WAS PLEASANT AND COOPERATIVE WITH CARE TEAM. PT SLEPT MOST OF THE NIGHT UNDISTURBED. PT REPORTED NO PAIN/NUASEA DURING THE NIGHT. PT IS CURRENTLY SLEEPING WITH CALL LIGHT WITHIN REACH.
--- NOTE | 2020-02-13 16:46 | NUR ---
PATIENT HAS HAD NO ACUTE CHANGES TO REPORT ON THIS DAY. VITALS STABLE. PATIENT DENIES PAIN AND DISCOMFORT. PATIENT CALLS FOR STAFF ASSIST APPROPRIATELY NEEDED. WILL CONTINUE TO MONITOR AND PROVIDE CARE NEEDED.
--- NOTE | 2020-02-14 06:17 | NUR ---
BREAD DOUGH MIXER SUMMARY PT PLEASANT AND COOPERATIVE THROUGH OUT THE NIGHT. PT O2 SATS DROPPED <90 WHILE ON 4L NC SO IT WAS TITRATED TO 6L WHICH BROUGHT HIS 02 SATS BACK >90. tHE PT SLEPT MOST OF THE NIGHT EXCEPT WHEN HE RECIEVED A PHONE CALL FROM A "FRIEND" AROUND [phone]. PT IS RESTING COMFORTABLY WITH BIPAP ON AND CALL LIGHT WITHIN REACH. AXO X4.
--- NOTE | 2020-02-14 07:17 | NUR ---
ASSUMED CARE OF PT- BEDSIDE REPORT COMPLETED WITH NIGHT RN. PER REPORT PT HAD SOME DIFFICULTY WITH DROPPING SATS WITH THE NC LAST NIGHT PT DENIED SOB AT THAT TIME O2 INCREASED TO 6L VIA NC TO KEEP SATS GREATER THAN 90%. PT CURRENTLY RESTING IN BED CALL LIGHT IN REACH BIPAP ON WITH 4L BLEED IN SATS GREATER THAN 90% ON CONT BIOX. LUNG SOUNDS ARE CLEAR DIM IN THE BASES RESP E/U AND DEEP. PER REPORT PT HAS A RASH IN THE LEFT ARM PIT, WILL REQUEST NYSTATIN POWDER ON AM DR BANKS. PT ALSO HAD AN ORDER TO DC PICC LINE BUT NO ORDER FOR NO IV ACCESS IN THE CHART WILL REQUEST THAT WELL. PT CURRENTLY HAS NO IV ACCESS AND NO IV MEDS. PT HAS HIS CALL LIGHT IN REACH AND DENIES ANY NEEDS AT THIS TIME. WILL CTM.
--- NOTE | 2020-02-14 16:21 | NUR ---
SHIFT SUMMARY- SPOKE TO DR SALGADO THIS MORNING ON MORNING ROUNDS, RECIEVED ORDER FOR NYSTATIN CREAM FOR PT LEFT ARM PIT RASH. NO IV ACCESS ORDERED. PT HAS HAD NO ACUTE CHANGE TODAY. PT HAS DENIED PAIN T/O THE SHIFT ON CARE ROUNDING. ROOM IS VERY COOL BUT THE PT STATED HE LIKES IT COOL AND DOES NOT WANT THE TEMPERATURE CHANGED. PT IS STILL AWAITING PLACEMENT AT THIS TIME. WILL CTM AND PASS ON IN BEDSIDE REPORT WITH NIGHT RN.
--- NOTE | 2020-02-15 04:07 | NUR ---
SUMMARY PT HAD NO ISSUES NOTED. PT SLEPT WELL VIA BIPAP. PT DENIES SOB. CURRENTLY SLEEPING IN NO DISTRESS. CALL LIGHT IN REACH.
--- NOTE | 2020-02-15 17:20 | NUR ---
SHIFT SUMMARY- PT IS A/O, PLESANT AND COOPERATIVE. HE WORKED WITH ST TODAY AND TOLERATED WELL. HE IS EATING AND DRINKING WELL. HE SLEPT INTERMITENTLY THROUGHOUT THIS SHIFT. HE WAS UP TO THE CHAIR FOR SEVERAL HOURS. HE RECIEVED A BEDBATH.
--- NOTE | 2020-02-15 20:54 | NUR ---
PT LYING IN BED, DENIES ANY DISCOMFORT AT THIS TIME. DENIES SOB, ON 4L O2 NC AT 94%. NO APPARENT SIGNS OF DISTRESS. CALL LIGHT IS IN REACH.
--- NOTE | 2020-02-16 04:52 | NUR ---
02/15/20 2200 PT LYING IN BED, WATCHING TV. NO APPARENT SIGNS OF DISTRESS. CALL LIGHT IS IN REACH.
--- NOTE | 2020-02-16 04:53 | NUR ---
0200 PT LYING IN BED, EYES CLOSED, APPEARS TO BE RESTING. BREATHING IS EVEN, UNLABORED. NO APPARENT SIGNS OF DISTRESS. CALL LIGHT IS IN REACH.
--- NOTE | 2020-02-16 04:53 | NUR ---
0000 PT LYING IN BED, EYES CLOSED, APPEARS TO BE RESTING. BREATHING IS EVEN, UNLABORED. NO APPARENT SIGNS OF DISTRESS. CALL LIGHT IS IN REACH.
--- NOTE | 2020-02-16 04:54 | NUR ---
PT IS AAO X 4, ON 4L O2 NC AT 94%. PT DENIES SOB OR ANY OTHER DISCOMFORT THIS SHIFT. DECLINES TO WEAR SCD'S BUT HAS LOVENOX. CONT. BIOX. BIPAP AT [facility].
--- NOTE | 2020-02-16 04:54 | NUR ---
PT LYING IN BED, EYES CLOSED, APPEARS TO BE RESTING. WAKES EASILY TO VERBAL STIMULI. NO APPARENT SIGNS OF DISTRESS. CALL LIGHT IS IN REACH.
--- NOTE | 2020-02-16 06:03 | NUR ---
PT LYING IN BED, EYES CLOSED, APPEARS TO BE RESTING. BREATHING IS EVEN, UNLABORED.NO APPARENT SIGNS OF DISTRESS. CALL LIGHT IS IN REACH. NO OTHER CHANGES THIS SHIFT.
[2020-02-16] MEDS ORDERED: POTCHL20ER PO (14:20)
[2020-02-16] MEDS ORDERED: FURO20 PO (14:20)
[2020-02-16] MEDS ORDERED: DOCUZEN 8.6-501 EACH PO (14:21)
[2020-02-16] MEDS ORDERED: SPIR25 PO (14:21)
--- NOTE | 2020-02-16 16:20 | NUR ---
PT DISCHARGED VIA TRANSPORT [facility]. PERSONAL BELONGINGS WITH PT. PT VERB UNDERSTANDING OF DC INSTRUCTIONS, MEDS, FOLLOW UP, ETC. [facility]
== END 2020-02-16 16:20 | disposition home or self-care (01) | DRG 207 ==
LOC: ER 17:05 → ICUW 19:39 → PCU 02-06 14:17 → MEDS 02-09 21:48
PROVIDERS: Emergency Medicine; Family Medicine; Internal Medicine; Internal Medicine Critical Care Medicine; Internal Medicine Pulmonary Disease; Nurse Practitioner Acute Care; Pharmacist; ADMIT Internal Medicine
PROC: 5A1955Z Respiratory Ventilation, Greater than 96 Consecutive Hours (ICD-10-PCS; principal; 2020-01-22)
PROC: 5A09557 Assistance with Respiratory Ventilation, Greater than 96 Consecutive Hours, Continuous Positive Airway Pressure (ICD-10-PCS; 2020-01-22)
PROC: 0BH17EZ Insertion of Endotracheal Airway into Trachea, Via Natural or Artificial Opening (ICD-10-PCS; 2020-01-22)
PROC: 5A1955Z Respiratory Ventilation, Greater than 96 Consecutive Hours (ICD-10-PCS; 2020-01-22)
DX: J96.21 Acute and chronic respiratory failure with hypoxia (principal); G92 Toxic encephalopathy; I50.33 Acute on chronic diastolic (congestive) heart failure; J15.9 Unspecified bacterial pneumonia; I21.4 Non-ST elevation (NSTEMI) myocardial infarction; J44.0 Chronic obstructive pulmonary disease with (acute) lower respiratory infection; E66.2 Morbid (severe) obesity with alveolar hypoventilation; J98.11 Atelectasis; N17.9 Acute kidney failure, unspecified; B17.9 Acute viral hepatitis, unspecified; Z20.828 Contact with and (suspected) exposure to other viral communicable diseases; I11.0 Hypertensive heart disease with heart failure; J96.22 Acute and chronic respiratory failure with hypercapnia; Z99.81 Dependence on supplemental oxygen; G47.33 Obstructive sleep apnea (adult) (pediatric); E87.6 Hypokalemia; F15.10 Other stimulant abuse, uncomplicated; Z91.14 Patient's other noncompliance with medication regimen; Z89.511 Acquired absence of right leg below knee; I27.20 Pulmonary hypertension, unspecified; F17.210 Nicotine dependence, cigarettes, uncomplicated; K21.9 Gastro-esophageal reflux disease without esophagitis; Z68.38 Body mass index [BMI] 38.0-38.9, adult; R21 Rash and other nonspecific skin eruption
CPT/HCPCS: 31500; 31720; 36415; 36569; 36600; 51702; 71045; 71260; 74230; 80048; 80053; 80069; 80074; 80202; 81001; 82330; 82550; 82803; 82947; 83605; 83735; 83880; 84100; 84443; 84478; 84484; 85025; 85027; 85610; 85730; 87040; 87070; 87106; 87205; 92526; 92610; 92611; 93005; 93010; 93306; 94002; 94003; 94640; 94644; 94660; 94667; 94668; 94760; 94761; 94762; 94770; 97110; 97162; 97166; 97530; 97535; 99285-25; A9270; A9270-GY; C1751; C9113; J0360; J1650; J1940; J2185; J2405; J2704; J3010; J3370; J3480; J7030; J7040; J7050; P9046; Q9967; U0003